=== PATIENT | male | born 2000 | race Caucasian/White ===

== ENCOUNTER 2023-09-22 12:21 | Outpatient (REF) | payer MEDICAID, SELFPAY ==
[2023-09-22 13:23] LABS: MANUAL DIFF FLAG NO
[2023-09-22 13:51] LABS: Basophils Percent Auto 0.2 % (0-2); Eosinophils Absolute Auto 0.1 X10*3/uL (0.0-0.4); Eosinophils Percent Auto 1.4 % (0-4); Hemoglobin 14.9 g/dl (14.0-18.0); Imm Gran Abs Auto 0.01 X10*3/uL (0.00-0.03); Imm Gran Pct Auto 0.2 % (0.0-0.4); Lymphocytes Absolute Auto 2.3 X10*3/uL (1.2-4.9); Lymphocytes Percent Auto 36.2 % (20-40); Mean Corpuscular HGB Conc 33.9 g/dl (31.0-36.0); Mean Corpuscular Hemoglobin 30.1 pg (27.0-33.0); Mean Corpuscular Volume 88.9 fL (80.0-98.0); Mean Platelet Volume 11.2 fL (9.4-12.4); Monocytes Absolute Auto 0.6 X10*3/uL (0.1-1.2); Monocytes Percent Auto 8.9 % (2-11); Neutrophils Absolute Auto 3.4 x10*3/uL (2.0-8.3); Neutrophils Percent Auto 53.1 % (45-73); Platelet Count 258 X10*3/uL (160-400); Red Blood Count 4.95 X10*6/uL (4.60-5.80); Red Cell Distribution Width 12.8 % (11.0-16.0); White Blood Count 6.4 X10*3/uL (4.8-10.8)
[2023-09-22 14:37] LABS: Alanine Aminotransferase 14 U/L (0-40); Albumin Level 4.7 g/dL (3.5-5.0); Alkaline Phosphatase 65 U/L (39-117); Anion Gap 12 (12-20); Aspartate Amino Transferase 19 U/L (5-37); Bilirubin Total 0.4 mg/dL (0.0-1.0); Blood Urea Nitrogen 11 mg/dL (9-16); Calcium 9.9 mg/dL (8.4-10.2); Carbon Dioxide 28 mmol/L (22-29); Chloride 105 mmol/L (96-108); Cholesterol 186 mg/dL (<200); Estimated Glomerular Filt Rate > 60; Glucose Random 96 mg/dL (60-115); HDL Cholesterol 48 mg/dL (>40); LDL Cholesterol Calculated 117 mg/dL (<100); Potassium 4.6 mmol/L (3.3-5.1); Sodium 140 mmol/L (135-145); Total Protein 7.9 g/dL (6.5-8.0); Triglycerides 105 mg/dL (<150)
[2023-09-22 14:52] LABS: ~Hepatitis C Antibody Nonreactive (Nonreactive)
[2023-09-22 14:53] LABS: CT PCR NOT DETECTED (Not Detect.); NG PCR NOT DETECTED (Not Detect.)
[2023-09-22 15:01] LABS: Reflex LDLD? No
[2023-09-24 23:03] LABS: TS Negative Control Passed; TS Panel A 0; TS Panel B 0; TS Positive Control Passed; TSpotTB Negative (Negative)
[2023-09-25 13:03] LABS: Absolute CD3 Count 1720 cells/uL (840-3060); Absolute CD4 Count 397 cells/uL (490-1740); Absolute CD8 Count 1272 cells/uL (180-1170); Absolute Lymphocytes 2305 cells/uL (850-3900); CD4 CD8 Ratio 0.31 (0.86-5.00); Percent CD3 Cells 75 % (57-85); Percent CD4 Cells 17 % (30-61); Percent CD8 Cells 55 % (12-42)
[2023-09-26 00:49] LABS: RPR Rapid Plasma Reagin NON-REACTIVE (NON-REACTIVE)
[2023-09-26 11:03] LABS: HIV RNA PCR Qn Copies 4980 copies/mL (NOT DETECTED)
== END 2023-09-22 12:22 | disposition home or self-care (01) ==
LOC: HO.HHCL 12:21
PROVIDERS: Visit Provider Internal Medicine
DX: B20 Human immunodeficiency virus [HIV] disease (principal)
CPT/HCPCS: 0353U; 36415; 80053; 80061; 85025; 86359; 86360; 86481; 86592; 86803; 87536

== ENCOUNTER 2023-10-17 17:06 | Outpatient (REF) | payer MEDICAID, SELFPAY ==
[2023-10-17 19:02] LABS: CT PCR NOT DETECTED (Not Detect.); NG PCR NOT DETECTED (Not Detect.)
[2023-10-22 05:38] LABS: C.Trachomatis RNA TMA, Rectal NOT DETECTED; N.Gonorrhoeae RNA TMA, Rectal NOT DETECTED
[2023-10-22 06:14] LABS: C. Trachomatis RNA TMA, Throat NOT DETECTED; N. gonorrhoeae RNA TMA, Throat NOT DETECTED
== END 2023-10-17 17:07 | disposition home or self-care (01) ==
LOC: HO.HHCLNP 17:06
PROVIDERS: Visit Provider Student in an Organized Health Care Education/Training Program
DX: B20 Human immunodeficiency virus [HIV] disease (principal)
CPT/HCPCS: 0353U; 87491; 87591

== ENCOUNTER 2024-04-15 09:56 | Outpatient (REF) | payer MEDICAID, SELFPAY ==
--- OUTSIDE RECORDS SUMMARY | 2024-04-15 09:59 | XMS_ITS | Data Portability ---
Author Organization [place] - [facility], [facility] Address [address] [place] [address] Assessment Encounter Date Assessment Date Assessment LastModified by Organization Details LastModified Time 09/10/2015 09/10/2015 15 yo male with nl G&D, AG given, +S/A/D/C; Vaccines - discussed Meningitis B vaccine, will not be in college currently so opting to not get this vaccine; Screening - pt goes to a clinic routinely for STD screening for both blood and urine, has been neg, however having unprotected sex sometimes so stressed need to use condoms EVERY time, Urine GC/Chlam, call pt only if abnl; Nasal congestion - for one wk and may be improving, however 2 d ago had coughed up large amt of blood mixed with mucus, did change nasal piercing to larger hoop so blood may be from that, no blood in 2 d, will use nettipot, call me next wk if not improving and I would Rx for sinusitis; Psych - ADD/ADHD/Depressi on, followed by therapist and med provider, using meds despite not being in school since help him focus at work, recent cutting with identified trigger event and therapist aware, no current SI/HI/desire to self harm; Social - currently being evicted from his home along with his Mom and sister, per pt (and Mom at different visit) GM owns home and uncle has taken over her care and $, eviction date end of September 2015, Mom looking for a job, may relocate to [facility] since older daughter lives there, asked pt to keep me updated kcamera Not available 09/10/2015 17:51:16 01/21/2016 01/21/2016 Severe Conjunctivitis vs Conj with Early Preseptal Cellulitis - Augment, Polytrim, cool compresses prn, RTO if worsening at all or if not improving in 2-3 days, f/u prn; Social - still living in same house (GM's), eviction pushed off til Dec per pt, his Mom is now countersuing his GM for the $$ it took to care of her for yrs, hoping this will get the GM/Uncle's suit dropped so they can stay in house kcamera Not available 01/21/2016 13:19:51 07/06/2016 07/06/2016 Eating disorder - anorexia, by hx multifactorial with home stress/body image issues, now wants to eat and gain a little weight but has early satiety/nausea with eating much, his current wt is not too low but he needs to stop losing and perhaps gain to goal of 165 lbs, will do screening labs, refer to Juan, pt presently very open and willing to make necessary changes, wt check next week at [facility]; Issues with anal sex/douching of anus - suspect douching problem only due to poor nutrition and will resolve once he is eating/hydrating better, if persists would refer to GI for possible scope; Thrush of mouth - does not use condoms, at higher risk with anal sex, describes his partner as currently monogamous but that he was promiscuous in past, last HIV on pt 12/2015 and nl, will do STD screens today, Rx with Clotrimazole troches, f/u next wk; Psych - anxiety/depressio n longstanding, has both therapist and med provider - neither of whom know about eating issues, pt agrees to more open with them about all of his problems, just started Sertaline but discussed I doubt this has any bearing on wt loss; ADD/ADHD - not in school but working, likes to take meds when working so he can focus, discussed that he should not take the 30 mg tablet now and only take 20 mg if needed for work, f/u one wk kcamera Not available 07/06/2016 12:23:04 07/11/2016 07/11/2016 16 yo male with nl Development, AG/VC given, +S/D/C, +A in past; BMI - wnl but sign wt loss due to eating disorder; Eating disorder - has gained 5+ lbs since last wk, stopped his Sertraline and Adderall and now has inc appetite, eating 2 meals/d, will get screening blood work tomorrow and EKG scheduled for 2 d from now, has appt with therapist in 2 d and med provider in 3 d, plan is to hold off on meds for now but if does take prn Adderall for long shift to take a lower dose, no exercise for now but once wt is stable can resume, plan to refer to Juan once have the bloodwork, f/u one mth; Oral Candidiasis - did not get troches til today so will start, f/u one mth; ADD/ADHD - off meds for several days, plan to stay off as above, keep relationship with med provider; STD screening - added Hep B and C to labs ordered last wk including RPR and HIV; Eczema - dry skin care, HC valerate bid prn Spent 50 min with pt - >35 min was spent discussing eating disorder, ADD/ADHD kcamera Not available 07/11/2016 16:46:21 07/15/2016 07/15/2016 New HIV+ diagnosis - screening done due to sexual hx/thrush and wt loss, lengthy discussion with pt that he is HIV + on first test, per ID will repeat to confirm but discussed this is unlikely to be false + given his hx, discussed that other STD screens were nl, talked with Elsie CESPEDES this AM and has appt in 3 d 07/18/[address] Ruiz, pt given appt info, offered to talk to his Mom and his boyfriend for or with him - he declined, given his psych hx including suicide attempts he contracted for safety, declined having me tell his therapist - states he will tell her in 2 wks at next appt, f/u here one month; Hep B - neg surface Ab, did not seroconvert, plan to repeat series in future but will wait for his immune status to be stable; Eating disorder/wt loss - now complicated by concommitant HIV diagnosis, pt is now eating better and feels he likely does not need Juan at this time, wt check here in one month kcamera Not available 07/15/2016 17:55:25 Plan of Treatment Reminders Order Date Submit Date Provider Last Modified By Organization Details Last Modified Time Details Appointments None recorded . Lab CT + NG DNA, PCR, urine 2015 016 DBA_[email or web address] [id number] [facility], [address] [place], [address], 6 04:08:45 CT + NG DNA, PCR, unspecif ied specimen 2016 017 [facility], [address] [place], [address], 7 10:28:18 HIV (1+2) Ab screen, serum 2016 017 [facility], [address] [place], [address], 7 09:05:52 HIV (1+2) Ab, western blot, serum 2016 017 [facility], [address] [place], [address], 7 09:05:52 RPR (rapid plasma reagin), serum 2016 017 [facility], [address] [place], [address], 7 16:45:43 ESR (erythro cyte sediment ation rate), blood 2016 017 [facility], [address] [place], [address], 7 14:39:16 CBC w/ auto diff 2016 017 [facility], [address] [place], [address], 7 16:00:07 TSH + free T4, serum 2016 017 [facility], [address] [place], [address], 7 10:27:28 carotene , serum 2016 017 CONNIE [facility], [address] [place], [address], 7 08:18:15 tissue transglu taminase Ab, serum 2016 017 mswienton [facility], [address] [place], [address], 7 10:28:01 iga, quantita tive, serum 2016 017 CONNIE [facility], [address] [place], [address], 7 14:59:18 magnesiu m, free, serum 2016 017 CONNIE [facility], [address] [place], [address], 7 16:01:41 urinalys is, complete 2016 017 CONNIE [facility], [address] [place], [address], 7 02:08:18 CMP, serum or plasma 2016 017 CONNIE [facility], [address] [place], [address], 7 16:01:39 amylase + lipase, serum 2016 017 [facility], [address] [place], [address], 7 09:05:52 prealbum in, serum 2016 017 CONNIE [facility], [address] [place], [address], 7 16:01:42 urinalys is, dipstick 2016 017 [facility], [address] [place] [address], [place], [address], 7 12:13:34 hepatiti s C virus Ab, serum 2016 017 [facility], [address] [place], [address], 7 16:53:02 HBsAg (hepatit is B surface Ag), serum 2016 017 [facility], [address] [place], [address], 7 16:45:47 hepatiti s B surface Ab, qualitat luzmaria, serum 2016 017 [facility], [address] [place], [address], 7 17:05:40 HIV (1+2) Ab screen, serum 2016 017 [facility], [address] [place], [address], 7 13:23:00 HIV (1+2) Ab, western blot, serum 2016 017 [facility], [address] [place], [address], 7 13:23:12 Referral pediatri c infectio us disease referral 2016 017 kcamera Not available 7 08:27:02 Procedures None recorded . Surgeries None recorded . Imaging electroc ardiogra m 2016 017 [facility] (Outt Non-Invasive Cardiology Scheduling), [address] [place], [address], 7 09:24:05 Medication Orders Polytrim 10,000 unit-1 mg/mL eye drops 2015 016 zule[id number], [address] [place], [place], [id number], 7 11:01:05 Augmenti n 875 mg-125 mg tablet 2015 016 zuleika [facility]67703, [address] [place] [address], [place], [id number], 7 11:00:47 clotrima zole 10 mg sharif 2016 017 INTERFACE [facility][id number], [address] [place], [place], [id number], 7 12:15:44 hydrocor tisone valerate 0.2 % topical cream 2016 017 INTERFACE [id number], [address] [place] [address], [place], [id number], 7 15:39:48 Patient TargetsNo targets recorded. Patient Instructions Encounter Date Encounter Id Patient Instructions Last Modified By Organization Details Last Modified Time 09/10/2015 [id number] patient health questionnaire modified for adolescents* DBA_PATCH_20 [id number] Not available 04/09/2016 04:08:45 5210 program - 1 hour of exercise DBA_PATCH_20 [id number] Not available 04/09/2016 04:08:43 immunization: wh at you need to know DBA_PATCH_20 [id number] Not available 04/09/2016 04:08:43 Well Visit, 12 Years to Young Teen: Care Instructions DBA_PATCH_20 [id number] Not available 04/09/2016 04:08:43 07/11/2016 [id number] program - 5 fruits & veggies CONNIE Not available 07/12/2016 02:05:30 5210 program - 1 hour of exercise CONNIE Not available 07/12/2016 02:05:30 patient health questionnaire depression assessment* kcamera Not available 07/11/2016 15:39:35 immunization: wh at you need to know CONNIE Not available 07/12/2016 02:05:31 Reason for Referral Pediatric Infectious Disease Referral for Human immunodeficiency virus infection newly HIV+ Referring Physician: Carito Serna, Pediatric Medicine, Encounter Date: 07/15/2016 Results Created Date Observation Date Name Description Value Unit Range Abnormal Flag Note LastModifiedBy Organization Detail LastModifiedTime 07/11/2016 patie nt healt [facility] italo pineda fanta christina kay * PHQ-9 positi ve Not Available [facility] [address] [place] [address], [phone], 07/11/2016 15:09:21 07/06/2016 urina lysis , dipst ick Leukocytes Negati ve Not Available [facility] [address] [place] [address], [phone], 07/06/2016 11:57:23 07/06/2016 urina lysis , dipst ick Nitrite negati ve Not Available [facility] [address] [place] [address], [phone], 07/06/2016 11:57:23 07/06/2016 urina lysis , dipst ick Protein Trace Not Available [facility] [address] [place] [address], [phone], 07/06/2016 11:57:23 07/06/2016 urina lysis , dipst ick pH 7.5 Not Available [facility] [address] [place] [address], [phone], 07/06/2016 11:57:23 07/06/2016 urina lysis , dipst ick Blood Negati ve Not Available [facility] [address] [place] [address], [phone], 07/06/2016 11:57:23 07/06/2016 urina lysis , dipst ick Ketone Negati ve Not Available [facility] [address] [place] [address], [phone], 07/06/2016 11:57:23 07/06/2016 urina lysis , dipst ick Glucose Negati ve Not Available [facility] [address] [place] [address], [phone], 07/06/2016 11:57:23 09/10/2015 patie nt healt h quest ionna fanta modif ied for adole scent s* PHQ-9 positi ve Not Available [facility] [address] [facility], [place], [address], 09/10/2015 13:15:36 09/10/19 16 09/11/2015 CT + NG DNA, PCR, urine urine chlamydia amp probe NEGAT LUZMARIA No Chlam ydia Trach omati s RNA detec lavonne in this patie nt's sampl e (REFE RENCE RANGE /NORM AL VALUE : NOT DETEC LAVONNE) Not Available [facility] [address], [place], [address], 09/11/2015 14:27:11 09/10/19 16 09/11/2015 CT + NG DNA, PCR, urine urine GC amp probe NEGAT LUZMARIA No Neiss eria Gonor rhoea e RNA detec lavonne in this patie nt's sampl e (REFE RENCE RANGE /NORM AL VALUE : NOT DETEC LAVONNE) NOTE: This test uses trans cript ion-m ediat ed ampli ficat ion metho d to detec t rRNA from C.Tra choma tis and N.Wilman orrho eae. A negat luzmaria resul t does not precl ude infec tion. In the case of a negat luzmaria urine resul t, testi ng of an endoc ervic al(fe male) or ureth ral(m geovany) speci men is recom best d if there is high clini ingrid suspi cion of infec tion. The perfo rmanc e angelito cteri stics of this test have not been evalu ated in child macario. The Aptim a Combo 2 assay is not inten ded for the evalu ation of suspe cted sexua l abuse or for other medic o-leg al indic ation s. The order ing provi mir shoul d asses s if the patie nt had conse nsual sex witho ut risk of sexua l abuse . [facility] if neede d. Conta ct phone numbe r [phone]. Thera peuti c failu re or succe ss canno t be deter mined with the Aptim a Combo 2 assay since nucle ic acid may persi st follo wing appro priat e antim icrob ial thera py. The Cente rs for Disea se Contr ol and Preve ntion ([facility]) recom mends confi rmato ry retes ting using cultu re or a diffe rent nucle ic acid ampli ficat ion test when posit luzmaria resul ts occur , if indic ated. Testi ng perfo rmed or repor lavonne by [facility] ate Refer ence Labor atori es, a Servi ce of [facility] ate Medic al Cente r, [address] [place] [address] CLIA [id number] Kim bruce MD, PhD, Medic al Direc tor Not Available [facility] [address] [place], [address], 09/11/2015 14:27:11 07/07/19 17 07/07/2016 urina lysis , compl ete appear/color DARK YELLO W CLEAR Not Available [facility] [address] [place], [address], 07/07/2016 02:08:17 07/07/19 17 07/07/2016 urina lysis , compl ete sp. gravity 1.026 (1.002 -1.030 ) Not Available [facility] [address] [place], [address], 07/07/2016 02:08:17 07/07/19 17 07/07/2016 urina lysis , compl ete urine pH 7.0 (4.0-8 .0) Not Available [facility] [address] [place], [address], 07/07/2016 02:08:17 07/07/19 17 07/07/2016 urina lysis , compl ete urine albumin 2+ (neg) abnormal Not Available [facility] [address] [place], [address], 07/07/2016 02:08:17 07/07/19 17 07/07/2016 urina lysis , compl ete urine glucose NEGATI VE (neg) Not Available [facility] [address] [place], [address], 07/07/2016 02:08:17 07/07/19 17 07/07/2016 urina lysis , compl ete urine ketones TRACE (neg) abnormal Not Available [facility] [address] [place], [address], 07/07/2016 02:08:17 07/07/19 17 07/07/2016 urina lysis , compl ete urine bilirubin NEGATI VE (neg) Not Available [facility] [address] [place], [address], 07/07/2016 02:08:17 07/07/19 17 07/07/2016 urina lysis , compl ete urine hemoglobn NEGATI VE (neg) Not Available [facility] [address] [place], [address], 07/07/2016 02:08:17 07/07/19 17 07/07/2016 urina lysis , compl ete urine nitrite NEGATI VE (neg) Not Available [facility] [address] [place], [address], 07/07/2016 02:08:17 07/07/19 17 07/07/2016 urina lysis , compl ete urine leukocyte NEGATI VE (neg) Not Available [facility] [address] [place], [address], 07/07/2016 02:08:17 07/07/19 17 07/07/2016 urina lysis , compl ete urobilinogen 4 mg/dL (norm) abnormal Not Available [facility] [address] [place], [address], 07/07/2016 02:08:17 07/07/19 17 07/07/2016 urina lysis , compl ete urine WBC's <1 /hpf (0-5) Not Available [facility] [address] [place], [address], 07/07/2016 02:08:17 07/07/19 17 07/07/2016 urina lysis , compl ete urine RBC's NONE SEEN /hpf (<3) Not Available [facility] [address] [place], [address], 07/07/2016 02:08:17 07/07/19 17 07/07/2016 urina lysis , compl ete mucus HEAVY /lpf Not Available [facility] [address] [place], [address], 07/07/2016 02:08:17 07/07/19 17 07/07/2016 urina lysis , compl ete transitional epith <1 /hpf Not Available [facility] [address], [address], 07/07/2016 02:08:17 07/07/19 17 07/07/2016 urina lysis , compl ete hyaline cast 4 lpf (0-2) high Not Available [facility] [address], [address], 07/07/2016 02:08:17 07/07/19 17 07/08/2016 CT + NG DNA, PCR, urine urine chlamydia amp probe NEGAT LUZMARIA No Chlam ydia Trach omati s RNA detec lavonne in this patie nt's sampl e (REFE RENCE RANGE /NORM AL VALUE : NOT DETEC LAVONNE) Not Available [facility] [address] [place], [address], 07/08/2016 07:05:47 07/07/19 17 07/08/2016 CT + NG DNA, PCR, urine urine GC amp probe NEGAT LUZMARIA No Neiss eria Gonor rhoea e RNA detec lavonne in this patie nt's sampl e (REFE RENCE RANGE /NORM AL VALUE : NOT DETEC LAVONNE) NOTE: This test uses trans cript ion-m ediat ed ampli ficat ion metho d to detec t rRNA from C.Tra choma tis and N.Wilman orrho eae. A negat luzmaria resul t does not precl ude infec tion. In the case of a negat luzmaria urine resul t, testi ng of an endoc ervic al(fe male) or ureth ral(m geovany) speci men is recom best d if there is high clini ingrid suspi cion of infec tion. The perfo rmanc e angelito cteri stics of this test have not been evalu ated in child macario. The Aptim a Combo 2 assay is not inten ded for the evalu ation of suspe cted sexua l abuse or for other medic o-leg al indic ation s. The order ing provi mir shoul d asses s if the patie nt had conse nsual sex witho ut risk of sexua l abuse . [facility] if neede d. Conta ct phone numbe r . Thera peuti c failu re or succe ss canno t be deter mined with the Aptim a Combo 2 assay since nucle ic acid may persi st follo wing appro priat e antim icrob ial thera py. The Cente rs for Disea se Contr ol and Preve ntion ([facility]) recom mends confi rmato ry retes ting using cultu re or a diffe rent nucle ic acid ampli ficat ion test when posit luzmaria resul ts occur , if indic ated. Not Available [facility] [address], [place], [address], 07/08/2016 07:05:47 07/14/19 17 07/13/2016 ESR (eryt hrocy te sedim entat ion rate) , blood sedimentatio n rate 8 mm/HR (0-15) In rare patie nts with multi ple myelo ma and other cance rs,Er ythro cyte Sedim entat ion Rate( ESR) by our curre nt metho d(iSE D)can be dominik l. If clini nj relev ant,p lease use C-cordelia ctive prote in as an equiv alent measu re of acute phase react ion in these patie nts. Not Available [facility] [address] [place], [address], 07/13/2016 14:39:16 07/14/19 17 07/13/2016 tissu e trans gluta tiffany e Ab, serum free T4 1.05 NG/dL (0.70- 1.80) NOTE: ADULT REFER ENCE RANGE MAY NOT APPLY TO PEDIA TRIC PATIE NTS. INTER PRET RESUL TS WITH CAUTI ON. Not Available [facility] [address], [address], 07/13/2016 15:52:47 07/14/19 17 07/13/2016 TSH + free T4, serum TSH 0.80 mIU/m L (0.40- 4.00) NOTE: ADULT REFER ENCE RANGE MAY NOT APPLY TO PEDIA TRIC PATIE NTS. INTER PRET RESUL TS WITH CAUTI ON. Not Available [facility] [address] [place], [address], 07/13/2016 15:52:48 07/14/19 17 07/13/2016 CBC w/ auto diff WBC 4.4 K/mm3 (4.0-1 1.0) Not Available [facility] [address] [place], [address], 07/13/2016 16:00:07 07/14/19 17 07/13/2016 CBC w/ auto diff RBC 5.39 M/mm3 (4.70- 6.10) Not Available [facility] [address] [place], [address], 07/13/2016 16:00:07 07/14/19 17 07/13/2016 CBC w/ auto diff HGB 15.4 gm/dL (14.0- 18.0) Not Available [facility] [address] [place], [address], 07/13/2016 16:00:07 07/14/19 17 07/13/2016 CBC w/ auto diff HCT 47.5 % (42.0- 52.0) Not Available [facility] [address] [place], [address], 07/13/2016 16:00:07 07/14/19 17 07/13/2016 CBC w/ auto diff MCV 88.1 fL (80.0- 94.0) Not Available [facility] [address], [address], 07/13/2016 16:00:07 07/14/19 17 07/13/2016 CBC w/ auto diff MCH 28.6 pg (27.0- 34.0) Not Available [facility] [address] [place], [address], 07/13/2016 16:00:07 07/14/19 17 07/13/2016 CBC w/ auto diff MCHC 32.4 g/dL (33.0- 37.0) low Not Available [facility] [address] [place], [address], 07/13/2016 16:00:07 07/14/19 17 07/13/2016 CBC w/ auto diff plt 245 K/mm3 (150-4 60) Not Available [facility] [address] [place], [address], 07/13/2016 16:00:07 07/14/19 17 07/13/2016 CBC w/ auto diff RDW-SD 40.7 fL (<47.0 ) Not Available [facility] [address] [place], [address], 07/13/2016 16:00:07 07/14/19 17 07/13/2016 CBC w/ auto diff MPV 11.6 fL (9.4-1 2.4) Not Available [facility] [address] [place], [address], 07/13/2016 16:00:07 07/14/19 17 07/13/2016 CBC w/ auto diff automated NRBC 0.0 #/100 _WBC' s Not Available [facility] [address] [place], [address], 07/13/2016 16:00:07 07/14/19 17 07/13/2016 CBC w/ auto diff abs. NRBC 0.0 K/mm3 Not Available [facility] [address] [place], [address], 07/13/2016 16:00:07 07/14/19 17 07/13/2016 CBC w/ auto diff neut # 1.6 K/mm3 (1.3-7 .0) Not Available [facility] [address] [place], [address], 07/13/2016 16:00:07 07/14/19 17 07/13/2016 CBC w/ auto diff lymph # 1.9 K/mm3 (0.8-3 .1) Not Available [facility] [address], [address], 07/13/2016 16:00:07 07/14/19 17 07/13/2016 CBC w/ auto diff mono# 0.7 K/mm3 (0.4-1 .3) Not Available [facility] [address] [place], [address], 07/13/2016 16:00:07 07/14/19 17 07/13/2016 CBC w/ auto diff eo # 0.2 K/mm3 (0.0-0 .4) Not Available [facility] [address], [address], 07/13/2016 16:00:07 07/14/19 17 07/13/2016 CBC w/ auto diff neut 35.5 % (44-76 ) low Not Available [facility] [address] [place], [address], 07/13/2016 16:00:07 07/14/19 17 07/13/2016 CBC w/ auto diff lymph 38.8 % (15-43 ) Not Available [facility] [address], [address], 07/13/2016 16:00:07 07/14/19 17 07/13/2016 CBC w/ auto diff atypical lymphs 5.0 % Not Available [facility] [address], [address], 07/13/2016 16:00:07 07/14/19 17 07/13/2016 CBC w/ auto diff monocyte 15.7 % (4.5-1 0.5) high Not Available [facility] [address] [place], [address], 07/13/2016 16:00:07 07/14/19 17 07/13/2016 CBC w/ auto diff eo 5.0 % (0-6) Not Available [facility] [address] [place], [address], 07/13/2016 16:00:07 07/14/19 17 07/13/2016 CBC w/ auto diff baso 0.0 % (0-2) Not Available [facility] [address] [place], [address], 07/13/2016 16:00:07 07/14/19 17 07/13/2016 CBC w/ auto diff plt estimate ADEQUA TE Not Available [facility] [address] [place], [address], 07/13/2016 16:00:07 07/14/19 17 07/13/2016 CBC w/ auto diff platelet comment FEW LARGE PLATE LETS Not Available [facility] [address] [place], [address], 07/13/2016 16:00:07 07/14/19 17 07/13/2016 amyla se, serum or plasm a amylase 48 U/L (28-10 0) Not Available [facility] [address] [place], [address], 07/13/2016 16:01:38 07/14/19 17 07/13/2016 CMP, serum or plasm a glucose 85 mg/dL (70-99 ) Not Available [facility] [address] [place], [address], 07/13/2016 16:01:39 07/14/19 17 07/13/2016 CMP, serum or plasm a BUN 15 mg/dL (6-20) Not Available [facility] [address] [place], [address], 07/13/2016 16:01:39 07/14/19 17 07/13/2016 CMP, serum or plasm a creatinine 0.8 mg/dL (0.7-1 .2) Not Available [facility] [address] [place], [address], 07/13/2016 16:01:39 07/14/19 17 07/13/2016 CMP, serum or plasm a sodium 141 mmol/ L (133-1 45) Not Available [facility] [address] [place], [address], 07/13/2016 16:01:39 07/14/19 17 07/13/2016 CMP, serum or plasm a potassium 4.5 mmol/ L (3.6-5 .2) Not Available [facility] [address] [place], [address], 07/13/2016 16:01:39 07/14/19 17 07/13/2016 CMP, serum or plasm a chloride 104 mmol/ L (98-10 7) Not Available [facility] [address] [place], [address], 07/13/2016 16:01:39 07/14/19 17 07/13/2016 CMP, serum or plasm a bicarbonate 25 mmol/ L (22-29 ) Not Available [facility] [address] [place], [address], 07/13/2016 16:01:39 07/14/19 17 07/13/2016 CMP, serum or plasm a anion gap 12 (4-17) Not Available [facility] [address] [place], [address], 07/13/2016 16:01:39 07/14/19 17 07/13/2016 CMP, serum or plasm a albumin 4.6 gm/dL (3.4-4 .8) Not Available [facility] [address] [place], [address], 07/13/2016 16:01:39 07/14/19 17 07/13/2016 CMP, serum or plasm a calcium 9.3 mg/dL (8.6-1 0.5) NOTE: ADULT REFER ENCE RANGE MAY NOT APPLY TO PEDIA TRIC PATIE NTS. INTER PRET RESUL TS WITH CAUTI ON. Not Available [facility] [address] [place], [address], 07/13/2016 16:01:39 07/14/19 17 07/13/2016 CMP, serum or plasm a bilirubin,to jammie 0.3 mg/dL (0-1.2 ) Not Available [facility] [address] [place], [address], 07/13/2016 16:01:39 07/14/19 17 07/13/2016 CMP, serum or plasm a total protein 7.3 gm/dL (6.2-8 .2) Not Available [facility] [address] [place], [address], 07/13/2016 16:01:39 07/14/19 17 07/13/2016 CMP, serum or plasm a Ag ratio 1.7 Not Available [facility] [address] [place], [address], 07/13/2016 16:01:39 07/14/19 17 07/13/2016 CMP, serum or plasm a AST 15 U/L (0-38) Not Available [facility] [address] [place], [address], 07/13/2016 16:01:39 07/14/19 17 07/13/2016 CMP, serum or plasm a alk phos 59 U/L (40-12 9) Not Available [facility] [address] [place], [address], 07/13/2016 16:01:39 07/14/19 17 07/13/2016 CMP, serum or plasm a ALT 10 U/L (0-41) Not Available [facility] [address] [place], [address], 07/13/2016 16:01:39 07/14/19 17 07/13/2016 CMP, serum or plasm a est GFR non 130 mL/mi n/1.7 3_M2 The CKD-E PI creat inine equat ion has not been valid ated in child macario (<18 years ), pregn ant women , in some racia l or ethni c subgr oups other than Cauca sians and Afric an Ameri cans. Not Available [facility] [address] [place], [address], 07/13/2016 16:01:39 07/14/19 17 07/13/2016 CMP, serum or plasm a est GFR 151 mL/mi n/1.7 3_M2 The CKD-E PI creat inine equat ion has not been valid ated in child macario (<18 years ), pregn ant women , in some racia l or ethni c subgr oups other than Cauca sians and Afric an Ameri cans. Not Available [facility] [address] [place], [address], 07/13/2016 16:01:39 07/14/19 17 07/13/2016 lipas e, serum or plasm a lipase 39 U/L (13-60 ) Not Available [facility] [address] [place], [address], 07/13/2016 16:01:40 07/14/19 17 07/13/2016 magne sium, serum or plasm a magnesium 1.8 mEq/L (1.3-1 .9) Not Available [facility] [address] [place], [address], 07/13/2016 16:01:41 07/14/19 17 07/13/2016 preal bumin , serum prealbumin 29.5 mg/dL (20-40 ) Not Available [facility] [address] [place], [address], 07/13/2016 16:01:42 07/14/19 17 07/13/2016 RPR (rapi d plasm a reagi n), titer , serum syphilis screen by deng NONREA CTIVE Not Available [facility] [address] [place], [address], 07/13/2016 16:45:43 07/14/19 17 07/13/2016 RPR (rapi d plasm a reagi n), titer , serum RPR titer result NOT INDICA LAVONNE Not Available [facility] [address] [place], [address], 07/13/2016 16:45:43 07/14/19 17 07/13/2016 RPR (rapi d plasm a reagi n), titer , serum tppa result NOT INDICA LAVONNE Not Available [facility] [address] [place], [address], 07/13/2016 16:45:43 07/14/19 17 07/13/2016 RPR (rapi d plasm a reagi n), titer , serum syphilis interpretati on Indic ative of the absen ce of infec tion with Trepo nemal palli dum. Test may be negat luzmaria in cases of incub ating or early prima ry syphi lis. Consi mir repea t testi ng in sever al weeks if clini ingrid suspi cion is high. Not Available [facility] [address] [place], [address], 07/13/2016 16:45:43 07/14/19 17 07/13/2016 HBsAg (hepa titis B surfa ce Ag), serum hep. B surf. Ag NEGAT LUZMARIA REFER ENCE RANGE : NEGAT LUZMARIA Not Available [facility] [address] [place], [address], 07/13/2016 16:45:47 07/14/19 17 07/13/2016 hepat itis B surfa ce Ab, quali tativ e, serum anti-hbs NEGAT LUZMARIA INDIC ATES LACK OF PRIOR EXPOS URE. Not Available [facility] [address] [place], [address], 07/13/2016 17:05:40 07/14/19 17 07/14/2016 tissu e trans gluta tiffany e iga Ab, serum ttg result 0.59 U/mL (<15.0 1) Refer ence Range : less than or equal to 15 U/mL (nega tive) Effec tive Janwindy ry 2016 the refer ence range for this assay has mon ed from less than 4 U/mL to less than or equal to 15 U/mL. Not Available [facility] [address] [place], [address], 07/14/2016 10:57:06 07/14/19 17 07/14/2016 HIV 1+2 AB + HIV 1 p24 Ag, quali tativ e immun oassa y, serum result 4TH gen HIV Ab-Ag REPEA TEDLY REACT LUZMARIA BY SCREE SHERWIN DENG. PLEAS E SEE CONFI RMATO RY TEST RESUL TS. REFER ENCE RANGE : NEGAT LUZMARIA ADDIT IONAL NOTE: WRITT EN PATIE NT AUTHO RIZAT ION IS REQUI RED FOR EACH SEPAR ATE RELEA SE OF THIS TEST RESUL T. Not Available [facility] [address] [place], [address], 07/14/2016 13:26:09 07/14/19 17 07/14/2016 HIV 1-2 Ab diffe renti ation result for HIV 1 Ab diff Posit luzmaria. Prese nce of antib crispin to HIV 1 CONFI RMED in this speci men. Resul t repor lavonne to [place] DPH. Not Available [facility] [address] [place], [address], 07/14/2016 14:18:11 07/14/19 17 07/14/2016 HIV 1-2 Ab diffe renti ation result for HIV 2 Ab diff Negati ve. Presen ce of antibo dy to HIV 2 NOT confir med in this specim en. Not Available [facility] [address] [place] [place], [address], 07/14/2016 14:18:11 07/14/19 17 07/14/2016 hepat itis C virus Ab, serum anti-hepatit is C NEGAT LUZMARIA REFER ENCE RANGE : NEGAT LUZMARIA Not Available [facility] [address] [place], [address], 07/14/2016 16:53:02 07/14/19 17 07/15/2016 iga, quant itati ve, serum IgA subclass 1 251 Refer ence range : 50 to 314 Unit: mg/dL Not Available [facility] [address] [place], [address], 07/15/2016 14:59:18 07/14/19 17 07/15/2016 iga, quant itati ve, serum IgA subclass 2 43.6 Refer ence range : 9.7 to 156.0 Unit: mg/dL Not Available [facility] [address] [place], [address], 07/15/2016 14:59:18 07/14/19 17 07/15/2016 iga, quant itati ve, serum total IgA 296 Refer ence range : 61 to 356 Unit: mg/dL Test Perfo rmed by: [facility], [address], [place] [address] Labor atory Direc tor: Jerry parker III, M.D. Not Available [facility] [address] [place], [address], 07/15/2016 14:59:18 07/14/19 17 07/20/2016 carot annie, serum carotene 11 Refer ence range : 3 to 91 Unit: ug/dL (NOTE ) [facility]: [facility] [address] [facility] [place] [id number] Not Available [facility] [address] [place], [address], 07/20/2016 08:18:15 07/19/19 17 07/19/2016 HIV (1+2) Ab, westfaizan rn blot, serum result 4TH gen HIV Ab-Ag REPEA TEDLY REACT LUZMARIA BY SCREE SHERWIN DENG. PLEAS E SEE CONFI RMATO RY TEST RESUL TS. REFER ENCE RANGE : NEGAT LUZMARIA ADDIT IONAL NOTE: WRITT EN PATIE NT AUTHO RIZAT ION IS REQUI RED FOR EACH SEPAR ATE RELEA SE OF THIS TEST RESUL T. Not Available [facility] [address] [place], [address], 07/19/2016 12:19:00 07/19/19 17 07/19/2016 HIV (1+2) Ab scree n, serum result for HIV 1 Ab diff Posit luzmaria. Prese nce of antib crispin to HIV 1 CONFI RMED in this speci men. Resul t repor lavonne to [place] DPH. Not Available [facility] [address] [place], [address], 07/19/2016 13:21:19 07/19/19 17 07/19/2016 HIV (1+2) Ab scree n, serum result for HIV 2 Ab diff Negati ve. Presen ce of antibo dy to HIV 2 NOT confir med in this specim en. Not Available [facility] [address] [place], [address], 07/19/2016 13:21:19 08/04/19 17 07/13/2016 jony de anda am No observ ation record ed. [facility] (Outt Non-Invasive Cardiology Scheduling) [address] [place], [address], 08/10/2016 10:16:27 Result Notes None recorded. Problems Name Problem SNOMED Code Status Onset Date Resolution Date Notes Provider Name and Address Organization Details Recorded Time Joint pain in ankle and foot Completed 01/02/2013 [facility] 3 08:46:57 Cellulit is 225211723 Completed 200801/02/2013 [facility] 3 08:46:57 Wrist joint pain 484861830 Completed 01/02/2013 [facility] 3 08:46:57 Viral disease 60864761 Completed 200801/02/2013 Klaudia patterson [facility] 3 08:46:57 Attentio n deficit hyperact ivity disorder , combined type 91455314 Active Carito Serna MD [address] [place] [address], [address], [facility] 5 13:02:27 Acute pharyngi tis 912613332 Completed 200801/02/2013 Klaudia patterson [facility] 3 08:46:57 Streptoc occal sore throat 68640701 Completed 01/02/2013 Klaudia patterson [facility] 3 08:46:57 Pain in limb 11900311 Completed 01/02/2013 Klaudia patterson [facility] 3 08:46:57 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 83912164 Completed 200801/02/2013 Klaudia patterson [facility] 3 08:46:57 Sprain of ankle 59579026 Completed 01/02/2013 Klaudiavee patterson [facility] 3 08:46:57 Disorder of pulmonar y circulat ion 39591155 Completed 200807/24/2013 Carito Serna MD [address] [place] [address], [address], [facility] 4 16:14:28 Ankle joint pain 959731378 Active Carito Serna MD [address] [place] [address], [address], [facility] 4 15:15:00 Injury of ankle 682160056 Active has extra bone in foot- os-trigon um- to have surgery in [place]- Nikki Wu [facility] 3 14:25:18 Acute pharyngi tis 048800010 Completed 01/29/2013 Klaudia patterson [facility] 3 14:25:18 Otitis externa 9482542 Completed 02/11/2015 Carito Serna MD [address] [place], [place] [address], [address], [facility] 5 07:55:14 Dysuria 06940688 Active Carito Serna MD [address] [place], [place] [address], [address], [facility] 3 17:20:16 Urinary tract infectio us disease 27945937 Active Carito Serna MD [address] [place] [address], [place], [address], [facility] 3 09:40:56 Dizzines s 170455169 Completed 07/24/2013 Carito Serna MD [address] [place] [address], [place], [address], [facility] 4 16:14:28 Muscle strain 89638277 Completed 07/24/2013 Carito Serna MD [address] [place] [address] Katem[place], [address], [facility] 4 16:14:28 Chest pain 94146969 Completed 07/24/2013 Carito Serna MD [address] [place], [place] [address]K[place], 3, [facility] 4 16:14:28 Hip pain 19659973 Active Carito Serna MD [address] [place] [address] Katemadi [place], 3, [facility] 4 21:30:01 Anxiety 36984632 Active Carito Serna MD [address] [place], [place] [address], [address], [facility] 4 18:09:45 Depressi ve disorder 01523559 Active Carito Serna MD [address] [place] [address] [place], [address], [facility] 5 21:43:09 Acute pharyngi tis 727330503 Completed 02/11/2015 Carito Serna MD [address] [place] [address] [place], [address], [facility] 5 07:55:14 Upper respirat ory infectio n 72407244 Completed 02/11/2015 Carito Serna MD [address] [place] [address], [place], [address], [facility] 5 07:55:14 Viral syndrome 383182064 Completed 02/11/2015 Carito Serna MD [address] [place] [address], [place], [address], [facility] 5 07:55:14 Increase d body mass index 17284753 Active Carito Serna MD [address] [place] [address], [place], [address], [facility] 5 21:43:09 Sinusiti s 85389625 Active Carito Serna MD [address] [place] [address], [place], [address], [facility] 5 10:00:11 Cellulit is of pinna 378573027 Active Carito Serna MD [address] [place] [address], [place], [address], [facility] 5 21:43:09 Secondar y erectile dysfunct ion 287936128 Active Carito Serna MD [address] [place] [address], [place]ruett [place], 3, [facility] 5 21:43:09 Eating disorder 49114757 Active 2016 Carito Serna MD [address] [place] [address], [place]ira pruett [place], 3, [facility] 7 12:15:44 Candidia sis of mouth 90272275 Active 2016 Carito Serna MD [address] [place] [address], [place] pruett [place], 3, [facility] 7 12:20:05 Eczema 78601957 Active 2016 Carito Serna MD [address] [place], [place] [address], 3, [facility] 7 16:44:28 Human immunode ficiency virus infectio n 40934778 Active 2016 diagnosed 06/2016 Carito Serna MD [address] [facility], [place], [address] , [facility] 7 14:48:24 Problem Notes None recorded. Procedures Surgical History Date Name Laterality Status Provider Name and Address Organization Details Recorded Time 3 Orthopaedic completed Tosin Lutz R.N. [facility] 12/25/2013 07:40:12 Imaging Results Imaging Date Name Status LastModified by Organization Details LastModified Time 07/13/2016 electrocardiogram completed [facility] (Outt Non-Invasive Cardiology Scheduling) [address] [place], [address], 08/10/2016 10:16:27 Procedure Notes None recorded. Medical Equipment None Reported. Allergies No known drug allergies Medications Name Sig Start Date Stop Date Status Note LastModified by Organization Details LastModified Time amoxicillin 875 mg tabs active Not Available Not Available Not Available amphetamine /dextroamph etamine 20 mg cp24 active Not Available Not Available Not Available amphetamine /dextroamph etamine 30 mg cp24 active Not Available Not Available Not Available clotrimazol e 10 mg sharif Take 1 tablet 5 times a day by oral route for 14 days. active Not Available Not Available No t Available neomycin-po lymyxin-hyd rocort 3.5 mg/mL-10,00 0 unit/mL-1 % ear solution active Not Available Not Available Not Available Concerta 18 mg tablet,exte nded release Take 1 tablet every day by oral route in the morning. 2010 active Not Available Not Available Not Avai lable Lidocaine Viscous 2 % mucosal solution active Not Available Not Available Not Available hydrocortis one valerate 0.2 % topical cream APPLY A THIN LAYER TO THE AFFECTED AREA(S) BY TOPICAL ROUTE 2 TIMES PER DAY active Not Available Not Available No t Available methylpheni date 10 mg tablet Take 1 tablet every day by oral route for 30 days. 04/24 completed Not Available Not Available Not Available hydrocodone 5 mg-acetamin ophen 325 mg tablet 01/20 completed Not Available Not Available Not Available ondansetron HCl 4 mg tablet active Not Available Not Available Not Available dextroamphe tamine-amph etamine 10 mg tablet 01/20 completed Not Available Not Available Not Available sertraline 100 mg tablet active Not Available Not Available Not Available penicillin V potassium 500 mg tablet Take 1 tablet twice a day by oral route for 10 days. 01/20 completed Not Available Not Available Not Available amoxicillin 500 mg tablet 01/20 completed Not Available Not Available Not Available amoxicillin 875 mg tablet TK 1 T PO EVERY 12 HOURS FOR 10 DAYS active Not Available Not Available No t Available dextroamphe tamine-amph etamine ER 20 mg 24hr capsule,ext end release TAKE ONE CAPSULE BY MOUTH EVERY MORNING active Not Available Not Available No t Available cephalexin 500 mg capsule Take 1 capsule 3 times a day by oral route for 10 days. 09/07 completed Not Available Not Available Not Available nystatin 100,000 unit/gram topical cream Apply by topical route tid til clear active Not Available Not Available No t Available dexamethaso ne 4 mg tablet 01/20 completed Not Available Not Available Not Available dextroamphe tamine-amph etamine 20 mg tablet TK 1 T P QD active Not Available Not Available No t Available polymyxin B sulfate 10,000 unit-trimet hoprim 1 mg/mL eye drops INT 2 GTS IN OU TID FOR 5 DAYS 07/06 completed Not Available Not Available Not Available dextroamphe tamine-amph etamine ER 10 mg 24hr capsule,ext end release active Not Available Not Available Not Available zolpidem 10 mg tablet active Not Available Not Available No t Available dextroamphe tamine-amph etamine ER 30 mg 24hr capsule,ext end release TK 1 C PO ONCE D IN THE MORNING active Not Available Not Available No t Available Zoloft 25 mg tablet Take 1 tablet every day by oral route for 30 days. 01/26 completed Not Available Not Available Not Available sertraline 50 mg tablet TK 1 T PO D active Not Available Not Available No t Available methylpheni date ER 36 mg tablet,exte nded release 24 hr Take 1 tablet every day by oral route in the morning. 2013 active Not Available Not Available Not Avai lable diazepam 5 mg tablet active Not Available Not Available No t Available amoxicillin 875 mg-potassiu m clavulanate 125 mg tablet TK 1 T PO Q 12 H FOR 10 DAYS 07/06 completed Not Available Not Available Not Available oxycodone 5 mg tablet active Not Available Not Available No t Available neomycin-po lymyxin-hyd rocort 3.5 mg-10,000 unit/mL-1 % ear drops,susp Instill 4 drops into affected ear(s) by otic route 3 times per day active Not Available Not Available No t Available methylpheni date ER 27 mg tablet,exte nded release 24 hr Take 1 tablet every day by oral route in the morning. active Not Available Not Available No t Available Bactrim DS 800 mg-160 mg tablet Take 1 tablet every 12 hours by oral route for 10 days. 04/08 completed Not Available Not Available Not Available methylpheni date LA 40 mg biphasic 50-50 capsule,ext ended release active Not Available Not Available Not Available multivitami n active PRN Not Available Not Available Not Available methylpheni date CD 40 mg biphasic 30-70 capsule,ext ended release Take 1 capsule every day by oral route for 30 days. 04/24 completed Not Available Not Available Not Available Vyvanse 30 mg capsule Take 1 capsule every day by oral route for 30 days. 08/02 completed Not Available Not Available Not Available Vitals Date Recorded Body height Body weight Body mass index (BMI) Systolic blood pressure Diastolic blood pressure Provider Name and Address Organization Details Last Updated DateTime 09/10/2015 179.71 cm 35832.26 g 24.7 kg/m2 114 mm[Hg] 70 mm[Hg] Addie Lara [facility] 6 13:23:12 Date Recorded Body height Body weight Body mass index (BMI) Provider Name and Address Organization Details Last Updated DateTime 07/06/2016 179.71 cm 02588.69 g 22.2 kg/m2 Shell Holman M.A. [facility] 07/06/2016 11:03:13 Date Recorded Body height Body weight Body mass index (BMI) Systolic blood pressure Diastolic blood pressure Provider Name and Address Organization Details Last Updated DateTime 07/11/2016 179.71 cm 45053.15 g 23 kg/m2 110 mm[Hg] 60 mm[Hg] Irma Mahajan [facility] 7 15:12:59 Social History Question Answer Notes LastModified by Organizat ion Details LastModified Time Tobacco Smoking Status Never Smoker Shell Holman M.A. eysenia, [facility] 08/25/2011 16:09:38 Hard Of Hearing Or Deaf In One Or Both Ears? No Information not available 09/08/2015 Legally Blind In One Or Both Eyes? No Information not available 09/08/2015 Parent's Marital Status Information not available 02/26/2011 Home Situation Mother -- Information not available 02/26/2011 Siblings Cary Parker (F) 07/14/2002 Catalina Larios(F) 06/09/1988 [place] Information not available 01/29/2013 Parent's Name Lily Larios Information not available 02/26/2011 Parent's Name Reji Parker Information not available 02/26/2011 DSS/DCF Custody No [facility] Information not available 01/29/2013 Are You Passively Exposed To Smoke? Yes --mom Smokes Inside Information not available 08/29/2013 How Much Tobacco Do You Smoke? No Information not available 09/10/2015 Sex: Unknown Functional Status None recorded. Mental Status None recorded. Family History Relationship Description Onset Age of this Age Resolved Age Notes LastModified by Organization Details LastModified Time Mother Obese 12 [email or web address] Not available 09:07:35 Maternal Grandmother Seizure disorder 25 [email or web address] Not available 2014 09:07:35 Maternal Grandmother Asthma klisien Not available 2014 09:07:35 Maternal Grandmother Parkinson's disease kleduc Not available 2016 15:14:51 Paternal Grandfather Diabetes mellitus [email or web address] Not available 2014 09:07:35 Father Alcoholism 25 [email or web address] Not availabl e 10/27/2014 09:07:35 Notes:Updated verbally Medical History Condition Response ALLERGIC AND IMMUNOLOGIC PROBLEMS N DEVELOPMENTAL/ BEHAVIORAL PROBLEMS N MUSCLE/ JOINT/ BONE PROBLEMS Y RHEUMATOLOGIC PROBLEMS N HOSPITALIZATIONS N ENT PROBLEMS/OTITIS MEDIA/ CHRONIC N 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 RENAL PROBLEMS Y HEMATOLOGIC /ONCOLOGIC PROBLEMS N ACCIDENTS INJURIES Y OTHER N NEUROLOGIC/ SEIZURES OR CONVULSIONS N ADHD Y ENDOCRINE PROBLEMS/DIABETES N HEADACHES/MIGRAINES/DIZZINESS N GI PROBLEMS/CONSTIPATION N CONGENITAL AND GENETIC PROBLEMS N INFECTIOUS DISEASE PROBLEMS N PUMONARY PROBLEMS/ ASTHMA N ORTHOPEDIC PROBLEMS Y CHICKEN POX / VARICELLA HISTORY or POSIT LUZMARIA TITER Y PSYCH PROBLEMS Y Immunizations Vaccine Type Date Status Note Provider Nam e and Address Organization Details Recorded Time meningococcal MCV4P 1 completed Not Available [facility] 05/11/2019 02:33:25 Tdap 1 completed Not Available [facility] 05/11/2019 02:33:42 Influenza, split virus, trivalent, PF 1 completed Not Available [facility] 05/11/2019 02:35:17 Hib, unspecified formulation 9 completed Not Available [facility] 02/26/2011 03:18:43 IPV 0 completed Not Available [facility] 02/26/2011 03:18:43 DTaP, unspecified formulation 9 completed Not Available [facility] 02/26/2011 03:18:43 Hep B, unspecified formulation 9 completed Not Available [facility] 02/26/2011 03:19:20 DTaP, unspecified formulation 9 completed Not Available [facility] 02/26/2011 03:18:43 Hep B, unspecified formulation 9 completed Not Available [facility] 02/26/2011 03:18:43 DTaP, unspecified formulation 9 completed Not Available [facility] 02/26/2011 03:18:43 Hep B, unspecified formulation 9 completed Not Available [facility] 02/26/2011 03:19:20 Hib, unspecified formulation 9 completed Not Available [facility] 02/26/2011 03:18:43 IPV 9 completed Not Available [facility] 02/26/2011 03:18:43 DTaP, unspecified formulation 0 completed Not Available [facility] 02/26/2011 03:18:43 MMR 0 completed Not Available [facility] 02/26/2011 03:18:43 Hib, unspecified formulation 9 completed Not Available [facility] 02/26/2011 03:19:20 Hib, unspecified formulation 0 completed Not Available [facility] 02/26/2011 03:18:43 pneumococcal conjugate PCV 7 1 completed Not Available [facility] 02/26/2011 03:18:43 IPV 3 completed Not Available [facility] 02/26/2011 03:18:43 DTaP, unspecified formulation 3 completed Not Available [facility] 02/26/2011 03:19:20 pneumococcal conjugate PCV 7 0 completed Not Available [facility] 02/26/2011 03:18:43 MMR 3 completed Not Available [facility] 02/26/2011 03:18:43 IPV 9 completed Not Available [facility] 02/26/2011 03:18:43 HPV, quadrivalent 2 completed Not Available [facility] 05/11/2019 02:34:00 HPV, quadrivalent 2 completed Not Available [facility] 05/11/2019 02:34:01 HPV, quadrivalent 3 completed Not Available [facility] 05/11/2019 02:34:03 Influenza, split virus, quadrivalent, PF 4 completed Not Available [facility] 05/11/2019 02:35:59 Hep A, ped/adol, 2 dose 5 completed Not Available [facility] 05/11/2019 02:34:34 meningococcal MCV4P 5 completed Not Available [facility] 05/11/2019 02:36:06 Influenza, split virus, quadrivalent, PF 5 completed Not Available [facility] 05/11/2019 02:36:20 Hep A, ped/adol, 2 dose 6 completed Not Available [facility] 05/11/2019 02:36:44 Influenza, split virus, quadrivalent, PF 7 completed Not Available [facility] 05/11/2019 02:37:42 Past Encounters Encounter ID Performer Location Encounter Start Date Encounter Closed Date Diagnosis/Indication Diagnosis SNOMED-CT Code Diagnosis ICD10 Code [id number] [facility] [address] [place] [address] 12/19/2007 08:39:02 01/01/2009 01:23:50 [id number] [facility] [address] [place] [address] 06/04/2008 11:24:11 06/04/2008 12:30:17 [id number] [facility] [address] [place] [address] 4 10/06/2008 12:43:32 10/06/2008 13:29:42 [id number] [facility] [address] [place] [address] 01/14/2009 09:02:37 01/14/2009 09:39:58 [id number] [facility] [address] [place] [address] 05/12/2010 16:50:35 05/12/2010 17:11:28 [id number] [facility] [address] [place] [address] 08/19/2010 14:49:31 08/19/2010 17:35:49 [id number] [facility] [address] [place] [address] 09/15/2010 10:01:10 09/15/2010 10:41:34 [id number] [facility] [address] [place] [address] 01/26/2011 14:10:08 01/26/2011 15:18:57 [id number] [facility] [address] [place] [address] 02/04/2011 15:03:25 02/04/2011 16:38:11 [id number] [facility] [address] [place] [address] 03/23/2011 14:07:36 03/23/2011 15:02:31 [id number] [facility] [address] [place] [address] 06/01/2011 14:07:35 06/01/2011 15:24:13 [id number] [facility] [address] [place] [address] 08/25/2011 15:59:48 08/25/2011 17:22:05 [id number] [facility] [address] [address] 12/27/2011 08:53:23 12/27/2011 09:37:31 [id number] Carito Serna MD [facility] [address] [address] 05/31/2012 08:58:17 05/31/2012 09:06:01 [id number] Carito Serna MD [address] [address] 08/29/2012 14:56:55 08/29/2012 16:52:58 [id number] Светлана Fletcher R.N. [facility] [address] [address] 12/17/2012 16:31:11 12/17/2012 16:56:31 Acute pharyngitis [id number] [address] [address] 01/02/2013 08:36:31 01/02/2013 08:59:08 Ankle joint pain 173822908 Injury of ankle 83454188 6 [id number] Addie Alancatracho [address] [address] 4 01/10/2013 09:07:23 01/10/2013 12:01:40 Acute pharyngitis 892946805 [id number] Tosin Lutz R.N. [address] [address] 4 01/29/2013 14:10:51 01/29/2013 14:47:52 Otitis externa 2656873 [id number] Nidhi Dubois [address] [address] 4 03/29/2013 16:14:09 03/29/2013 17:16:47 Dysuria 18864307 [id number] Addie Jane [address] [address] 4 04/03/2013 16:10:50 04/03/2013 17:09:33 Attention deficit hyperactivity disorder, combined type 13366481 Dysuria 55833608 Dizziness 536896915 [id number] Deepti Hung [address] [address] 4 05/28/2013 08:42:30 05/28/2013 09:18:20 Muscle strain 32332847 Self inflicted injury 27 2176925 Chest pain 83372656 [id number] Addie Lara [address] [address] 4 07/03/2013 14:10:39 07/03/2013 16:29:25 Hip pain 06690093 Attention deficit hyperactivity disorder, combined type 91483480 [id number] Светлана Fletcher R.N. [address] [address] 4 08/29/2013 08:15:17 08/29/2013 13:17:08 Well child 441093711 Attention deficit hyperactivity disorder, combined type 14774216 Anxiety 08703106 Hip pain 78902888 [id number] Carito Serna MD [address] [address] 12/25/2013 16:19:51 12/26/2013 08:42:04 Attention deficit hyperactivity disorder, combined type 89505843 Anxiety 29845010 Depressive disorder 3548 9007 [id number] Addie Lara [address] [address] 4 01/17/2014 10:51:23 01/17/2014 12:43:38 Depressive disorder 87463716 Attention deficit hyperactivity disorder, combined type 58413334 Influenza vaccine needed 1414816167 106 [id number] Nidhi Dubois [address] [address] 4 02/24/2014 14:17:13 02/24/2014 15:19:41 Depressive disorder 51156519 Attention deficit hyperactivity disorder, combined type 36655255 Ankle joint pain 7548027 09 [id number] Klaudiavee MelvinMaty [address] [address] 04/11/2014 10:55:28 04/11/2014 11:36:20 Acute pharyngitis 423696468 Upper resp iratory infection 17510747 Viral syndrome 622690109 [id number] Nidhi Dubois [address] [address] 07/18/2014 10:46:15 07/18/2014 11:44:05 Acute pharyngitis 960583774 [id number] [address] [address] 4 09/10/2014 09:50:48 09/10/2014 15:03:19 Well child 890606416 Increased body mass index 34272790 Attention deficit hyperactivity disorder, combined type 68455615 Depressive disorder [id number] [address] 4 10/27/2014 09:00:56 10/27/2014 10:02:05 Acute pharyngitis 191137692 Sinusitis 25237917 [id number] Carito Serna MD [address] [address] 02/11/2015 15:16:13 02/11/2015 16:30:45 Depressive disorder 70084636 F32.9 Cellulitis of pinna 2322 84484 H60.12 Increased body mass index 22393739 Z68.41 Secondary erectile dysfunction 754932218 N52.8 Active or passive immunization 078060723 Z23 [id number] Carito Serna MD [address] [address] 09/10/2015 13:11:56 09/10/2015 15:26:02 Well child 263207079 Z00.129 Active or passive immunization 896906639 Z23 Nasal congestion 2234697 0 R09.81 Attention deficit hyperactivity disorder, combined type 09587298 F90.2 Depressive disorder 3548 9007 F32.9 [id number] Carito Serna MD [address] [address] 01/21/2016 12:50:43 01/21/2016 13:28:29 Acute conjunctivitis 17422528 H10.31 Cellulitis 965880666 L03 .90 [id number] Carito Serna MD [address] [address] 07/06/2016 10:59:47 07/06/2016 12:36:13 Eating disorder 66856453 F50.9 Sexually t ransmitted infectious disease 8757009 A64 Candidiasis of mouth 797 75541 B37.0 Depressive disorder 3548 9007 F32.9 Anxiety 37973743 F41.9 Attention deficit hyperactivity disorder, combined type 05708154 F90.2 [id number] Carito Serna MD [address] [address] 07/11/2016 15:08:27 07/11/2016 16:49:05 Adult health examination 315355084 Z00.01 Administra tion of influenza vaccine 94477628 Z23 Eating disorder 09939211 F50.9 Candidiasis of mouth 797 45582 B37.0 Attention deficit hyperactivity disorder, combined type 01302156 F90.2 Sexually t ransmitted infectious disease 7591691 A64 Eczema 46332314 L30.9 [id number] Carito Serna MD [address] [address] 07/15/2016 16:10:50 07/15/2016 17:52:48 Human immunodeficiency virus infection 66086538 B20 Sexually t ransmitted infectious disease 9888779 A64 Eating disorder 79140939 F50.9 Health Concerns Section Related Observation LastModified by Organization Detai ls LastModified Time None Recorded Concern Status LastModified by Organization Details LastModified Time None Recorded Advance Directives Directive None Recorded Payers Encounter Date Sequence Insurance Name Policy Number Policy Ruelas Covered Member ID Ruelas Member ID Guarantor Name 09/10/2015 1 [place]: [facility] Kelby Parker [id number] [place] 09/10/2015 1 [facility] (MEDICAID HMO) [id number] [id number]2016 1 [place] [facility] Kelby Parker [id number] [facility] 01/21/2016 1 [facility] (MEDICAID HMO) [id number] Kelby Parker [id number] [facility] 07/06/2016 1 [place] [facility] Kelby Parker [id number] [place] 07/06/2016 1 [facility] [id number] Kelby Parker [id number] Julianna Ric 07/11/2016 1 [place] [facility] Kelby Parker [id number] Julianna [place] 07/11/2016 1 [facility] [id number] Kelby Parker [id number] Julianna [place] 07/15/2016 1 [place] [facility] Kelby Parker [id number] Julianna [place] 07/15/2016 1 [facility] [id number] Kelby Parker [id number] Julianna Ric Notes Date Note Type Note Provider Name and Address Organization Details Recorded Time 01/21/2016 text/html RS Sick Visit Na rrative HistoryReported bypatient.Notes:Today is the 3rd day of R eye redness & swelling. + itchy & slightly painful. + yellowish green discharge. Crusted over upon waking. Afebrile. Nasal congestion started yesterday ? allergies. Cough x over 1 week - worsening over the past few days. No ear pain. No ST. Does not wear contacts. Has been taking Mucinex with slight relief - last dose was 1.5 hrs ago. Also tried OTC itch relief eye drops without improvement. Boyfriend had URI symptoms. Cough definitely getting slowly better.FH neg RAD, PMH no hx wheezing. NO ill contacts. NO makeup. Carito Serna MD [address] [place] [address], [phone], [facility] 01/21/2016 13:20:44 07/06/2016 text/html EATING DISORDERR eported bypatient.weight and eating habitsweight loss18 pounds; what is your ideal weight? (165); what is most you ever weighed (189);does not eat regular meals eating behaviorexerciseno what type? how many hours a day how many days a week what intensity How stressed do you feel if you miss a workout? ; 24 hour diet history Amounts of food , food groups how much fluid what restrictions ; has not eaten regular meals in months, goes whole days without any food or drink, some water, occ smoothies at work with fruit, feels full immediately, drinks coffee contextdo you make yourself vomit because you feel too full? no; do you think you have lost control over how much you eat? no; have you lost >14 pounds in a 3 month period? yes; do you think you are fat even though others tell you that you are too thin? no; would you say that food dominates your life? no;disordered eating;excessive restriction;feeling anxious;feeling sad/ depressed/ crying a lot;family crises/stressors;substa nce use associated symptomsdizziness; dry skin with follicular rash on BLEs, dry hands but not quite eczema, having trouble douching his rectum - used to be able to douch and all be clean in 20 min (doing prior to anal sex), now douches and feels water has come out clear but then 5-10 min later murky brown liquid comes out energynormal amount of energy; has job at [employer] - new since Feb 2016 behavioral historyalcohol: use (occ only); caffeine use (many coffees per day); behavioral history/ any previous therapy; chronic emotional stress -school or home; who lives at homemom only (gm, sister); pt has tried to set up basement as his own space/apartment though without kitchen/way to cook, spends majority of his time there and does not come upstairs to join family for meals or much otherwise sexualsexually active yes (homosexual relationship with one partner >6 months, anal sex where he is recipient, stopped having sex Jan 2016 due to problems not feeling clean enough /see above); no abuse past medical historyother concerns in past (psych issues of anxiety /depression/suicide attempts in past) Anorexia Nervosasunken cheeks, sallow skin Bulimia Nervosadry skin diagnostic criteria for anorexia nervosano body image issues now though months ago thought he was too fat diagnostic criteria for bulimia nervosano vomiting/purging, feels nauseous after eating very small amountsNotes:Social - was in danger of losing house several months ago and then GM moved back home in Apr 2016, pt was all prepared to move out/move onto something new so though happy GM back and they can stay in their home he is disappointed; in relationship with supportive male, admits both he and his partner are not good at communicating but last night his partner and he talked and pt realizes that his partner cares and wants alf relationship; Mom busy with work and caring for his GM; Mom used to cook all the time and now she is not as much;Meds - on Adderall, takes when needs it , ranges from zero to 50 mg per day, will take 30 mg in AM and 20 mg later if longer work shift; drinks lots of coffee;Drugs - occ cocaine snorting few times, occ alcohol use but never drunk, mj every day multiple times a day - decided last night to focus on himself and try to cut back on mj; almost one ppd of cigs filtered;Therapist - not aware of eating issues ora all of his underlying issues;[facility] med provider - Sertraline 100 mg just started 10 d as pt request;Dizziness - vasovagal, stands up and has passed out 2 x in last 8 months, was not drinking/eating those days, witnessed and no sz activity; notes lost muscle mass, cracking nails, dry skin gama LEs and handsRS Sick Visit Narrative HistoryReported bypatient.Notes:Here for weight loss, loss of appetite, has no want for food at times, no desire to eat, will go days without eating, feels its med related, no vom, is very irregular with stools -diarrhea sometimes then constipation, does eat healthy when he does get around to eating, feels full very fast or gets nauseous. Started Setraline about 10 days ago. Carito Serna MD [address] [place] [address], [phone], [facility] 07/06/2016 12:25:27 07/15/2016 text/html RS Sick Visit Na rrative HistoryReported bypatient.Notes:Present s for lab results. Pt asked to return to discuss. Labs done for wt loss/eating problems/thrush and STD screening.Pt has had anal sex with 30-35 or more men in his lifetime - all or most of whom were in the last year, only used condoms if was one night hookup , in relationship for last 8 mths with male who was reportedly promiscuous before they were together and did not use condoms. In this relationship they are not using condoms. Has not been tested recently for STDs, felt that he did not want to know when discussed in office today. Not SA since Jan 2016.Has thrush.Eating - since last visit has felt better, has been eating at least 2 meals/day and now has appetite again. No n/v/d/c. Eczema improving on hands with inc lotion. Carito Serna MD [address] [place] [address], [phone], [facility] 07/15/2016 17:55:49
[2024-04-15 11:37] LABS: MANUAL DIFF FLAG NO
[2024-04-15 11:41] LABS: Basophils Percent Auto 0.2 % (0-2); Eosinophils Absolute Auto 0.1 X10*3/uL (0.0-0.4); Eosinophils Percent Auto 2.3 % (0-4); Hematocrit 41.7 % (42.0-52.0); Imm Gran Abs Auto 0.01 X10*3/uL (0.00-0.03); Imm Gran Pct Auto 0.2 % (0.0-0.4); Lymphocytes Absolute Auto 2.6 X10*3/uL (1.2-4.9); Lymphocytes Percent Auto 45.5 % (20-40); Mean Corpuscular HGB Conc 33.6 g/dl (31.0-36.0); Mean Corpuscular Hemoglobin 30.3 pg (27.0-33.0); Mean Corpuscular Volume 90.3 fL (80.0-98.0); Mean Platelet Volume 11.7 fL (9.4-12.4); Monocytes Absolute Auto 0.6 X10*3/uL (0.1-1.2); Monocytes Percent Auto 9.7 % (2-11); Neutrophils Absolute Auto 2.4 x10*3/uL (2.0-8.3); Neutrophils Percent Auto 42.1 % (45-73); Platelet Count 206 X10*3/uL (160-400); Red Blood Count 4.62 X10*6/uL (4.60-5.80); Red Cell Distribution Width 12.6 % (11.0-16.0); White Blood Count 5.7 X10*3/uL (4.8-10.8)
[2024-04-15 12:07] LABS: Alanine Aminotransferase 14 U/L (0-40); Albumin Level 4.6 g/dL (3.5-5.0); Alkaline Phosphatase 63 U/L (39-117); Anion Gap 10 (12-20); Aspartate Amino Transferase 21 U/L (5-37); Bilirubin Total 0.4 mg/dL (0.0-1.0); Blood Urea Nitrogen 10 mg/dL (9-16); Carbon Dioxide 27 mmol/L (22-29); Chloride 108 mmol/L (96-108); Estimated Glomerular Filt Rate > 60; Glucose Random 128 mg/dL (60-115); Potassium 4.4 mmol/L (3.3-5.1); Sodium 141 mmol/L (135-145); Total Protein 7.6 g/dL (6.5-8.0)
[2024-04-16 13:23] LABS: HIV RNA PCR Qn Copies 27 copies/mL (NOT DETECTED); HIV RNA PCR Qn Log Copies 1.43 (NOT DETECTED)
[2024-04-18 21:14] LABS: Absolute CD3 Count 1640 cells/uL (840-3060); Absolute CD4 Count 414 cells/uL (490-1740); Absolute CD8 Count 1100 cells/uL (180-1170); Absolute Lymphocytes 2474 cells/uL (850-3900); CD4 CD8 Ratio 0.38 (0.86-5.00); Percent CD3 Cells 66 % (57-85); Percent CD4 Cells 17 % (30-61); Percent CD8 Cells 44 % (12-42)
== END 2024-04-15 09:57 | disposition home or self-care (01) ==
LOC: HO.HHCL 09:56
PROVIDERS: Visit Provider Internal Medicine
DX: B20 Human immunodeficiency virus [HIV] disease (principal)
CPT/HCPCS: 36415; 80053; 85025; 86359; 86360; 87536

== ENCOUNTER 2024-09-05 16:44 | Outpatient (REF) | payer MEDICAID, SELFPAY | END 2024-09-05 16:45 | disposition home or self-care (01) | LOC: HO.HHCLNP 16:44 | PROVIDERS: Visit Provider Family Medicine | DX: Z13.89 Encounter for screening for other disorder (principal) | CPT/HCPCS: 87070; 87205 ==

== ENCOUNTER 2024-10-21 14:29 | Outpatient (REF) | payer MEDICAID, SELFPAY ==
--- NOTE | ~2024-10-21 | XR_ITS ---
EXAMINATION: XR SACRUM AND COCCYX CLINICAL INFORMATION: coccys pain COMPARISON: None available. TECHNIQUE: 2 views of the sacrum and 2 views of the coccyx were obtained. FINDINGS: No definite fracture or deformity is identified in the sacrum and coccyx.. There is flattening of the lateral femoral head neck junctions, bilaterally, and cystic changes. XR/XR sacrum coccyx min 2V IMPRESSION: Unremarkable sacrum and coccyx. 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 Correlate for signs and symptoms. Electronically signed by: Michael Welch MD 10/21/2024 03:26 PM EDT
--- OUTSIDE RECORDS SUMMARY | 2024-10-21 15:01 | XMS_ITS | Clinical Summary ---
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 Name Role Phone Unavailable Primary Care Provider Unavailabl e Social History Tobacco Use Types Packs/Day Years Used Date Smoking Tobacco: Never Assessed Sex and Gender Information Value Date Recorded Sex Assigned at Not on file Legal Sex Male 1:09 PM EDT Gender Identity Not on file Sexual Orientation Not on file Plan of Treatment Health Maintenance Due Date Last Done Comments Hepatitis C Virus Screening 1998 HIV Screening 2011 HPV Vaccines (1 - Male 3-dos e series) 2013 DTaP/Tdap/Td Vaccines (1 - Tdap) 2017 Hepatitis B Vaccines (1 of 3 - 19+ 3-dose series) 2017 COVID-19 Vaccine ( - 2023-2 5 season) 2023 Pneumococcal Vaccine: Pediat marcel (0-5 Years) and At-Risk Patients (6 to 49 Years) Aged Out No longer eligible b ased on patient's age to complete this topic
--- OUTSIDE RECORDS SUMMARY | 2024-10-21 15:01 | XMS_ITS | Data Portability ---
Author Organization [place] - [facility], [facility] Address [address] [place] [address] Assessment Encounter Date Assessment Date Assessment LastModified [...] looking for a job, may relocate to [facility] since older daughter lives there, [...] necessary changes, wt check next week at [facility]; Issues with anal sex/douching of anus - [...] Time Details Appointments None recorded . Lab HIV (1+2) Ab screen, serum 2016 017 ecardio [facility] (Centralized Electronic Ordering - All Locations), Patient Can Go To The Location Of Their Choice, 7 13:23:00 HIV (1+2) Ab, western blot, serum 2016 017 ecardio [facility] (Centralized Electronic Ordering - All Locations), Patient Can Go To The Location Of Their Choice, 7 13:23:12 hepatiti s C virus Ab, serum 2016 017 CONNIE [facility] (Centralized Electronic Ordering - All Locations), Patient Can Go To The Location Of Their Choice, 16:53:02 HBsAg (hepatit is B surface Ag), serum 2016 017 CONNIE [facility] (Centralized Electronic Ordering - All Locations), Patient Can Go To The Location Of Their Choice, 16:45:47 hepatiti s B surface Ab, qualitat luzmaria, serum 2016 017 CONNIE [facility] (Centralized Electronic Ordering - All Locations), Patient Can Go To The Location Of Their Choice, 7 17:05:40 CT + NG DNA, PCR, unspecif ied specimen 2016 017 Fresh Dish [facility] (Centralized Electronic Ordering - All Locations), Patient Can Go To The Location Of Their Choice, 7 10:28:18 HIV (1+2) Ab screen, [facility] Patient Can Go To The Location Of Their Choice, 7 09:05:52 HIV (1+2) Ab, western blot, serum 2016 [facility]), Patient Can Go To The Location Of Their Choice, 09:05:52 RPR (rapid plasma reagin), serum 2016 017 CONNIE [facility] (Centralized Electronic Ordering - All Locations), Patient Can Go To The Location Of Their Choice, 7 16:45:43 ESR (erythro cyte sediment ation rate), blood 2016 017 CONNIE [facility] (Centralized Electronic Ordering - All Locations), Patient Can Go To The Location Of Their Choice, 14:39:16 CBC w/ auto diff 2016 017 CONNIE [facility] (Centralized Electronic Ordering - All Locations), Patient Can Go To The Location Of Their Choice, 7 16:00:07 TSH + free T4, serum 2016 017 mswienton [facility] (Centralized Electronic Ordering - All Locations), Patient Can Go To The Location Of Their Choice, 7 10:27:28 carotene , serum 2016 017 CONNIE [facility] (Centralized Electronic Ordering - All Locations), Patient Can Go To The Location Of Their Choice, 7 08:18:15 tissue transglu taminase Ab, serum 2016 mswienton [facility] (Centralized Electronic Ordering - All Locations), Patient Can Go To The Location Of Their Choice, 7 10:28:01 iga, quantita tive, serum 2016 017 CONNIE [facility] (Centralized Electronic Ordering - All Locations), Patient Can Go To The Location Of Their Choice, 7 14:59:18 magnesiu m, free, serum 2016 017 CONNIE [facility] (Centralized Electronic Ordering - All Locations), Patient Can Go To The Location Of Their Choice, 7 16:01:41 urinalys is, complete 2016 017 CONNIE [facility] (Centralized Electronic Ordering - All Locations), Patient Can Go To The Location Of Their Choice, 7 02:08:18 CMP, serum or plasma 2016 017 CONNIE [facility] (Centralized Electronic Ordering - All Locations), Patient Can Go To The Location Of Their Choice, [id number] 7 16:01:39 amylase + lipase, serum 2016 017 [facility] (Centralized Electronic Ordering - All Locations), Patient Can Go To The Location Of Their Choice, [id number] 7 09:05:52 prealbum in, serum 2016 017 CONNIE [facility] (Centralized Electronic Ordering - All Locations), Patient Can Go To The Location Of Their Choice, [id number] 7 16:01:42 urinalys is, dipstick 2016 017 yissel [facility], [address] [place] [address], [place], [address], 7 12:13:34 CT + NG DNA, PCR, urine 2015 016 [email or web address] [id number] [facility] (Centralized Electronic Ordering - All Locations), Patient Can Go To The Location Of Their Choice, [facility] 6 04:08:45 Referral pediatri c infectio us disease referral 2016 017 yissel Not available 7 08:27:02 Procedures None recorded . Surgeries None recorded . Imaging electroc ardiogra m 2016 017 [facility] (Outt Non-Invasive Cardiology Scheduling), [facility] [place], [address], 7 09:24:05 Medication Orders hydrocor tisone valerate 0.2 % topical cream 2016 017 INTERFACE Not available 7 15:39:48 clotrima zole 10 mg sharif 2016 017 INTERFACE Not available 7 12:15:44 Polytrim 10,000 unit-1 mg/mL eye drops 2015 016 cszczepanek Not available 7 11:01:05 Augmenti n 875 mg-125 mg tablet 2015 016 [email or web address] Not available 11:00:47 Patient TargetsNo targets recorded. Patient Instructions Encounter Date Encounter Id Patient Instructions Last Modified By Organization Details Last Modified Time 09/10/2015 [id number] patient health questionnaire modified for adolescents* Not available 04/09/2016 04:08:45 [id number] program - 1 hour of exercise [email or web address] [id number] Not available 04/09/2016 04:08:43 immunization: wh at you need to know [email or web address] [id number] Not available 04/09/2016 04:08:43 Well Visit, 12 Years to Young Teen: Care Instructions [email or web address] [id number] Not available 04/09/2016 04:08:43 07/11/2016 [id number] program - 5 fruits & veggies CONNIE [...] Abnormal Flag Note LastModifiedBy Organization Detail LastModifiedTime 07/12/19 17 07/11/2016 patie nt healt h quest ionna fanta depre ssion asses sment * PHQ-9 positi ve Not Available [facility] [address] [place] [address], [phone], 07/11/2016 15:09:21 07/07/19 17 07/06/2016 urina lysis , dipst ick Leukocytes Negati ve Not Available [facility] [address] [place], [address], 07/06/2016 11:57:23 07/07/19 17 07/06/2016 urina lysis , dipst ick Nitrite negati ve Not Available [facility] [address] [place], [address], 07/06/2016 11:57:23 07/07/19 17 07/06/2016 urina lysis , dipst ick Protein Trace Not Available [facility] [address] [place], [address], 07/06/2016 11:57:23 07/07/19 17 07/06/2016 urina lysis , dipst ick pH 7.5 Not Available [facility] [address] [place] [address], [phone], 07/06/2016 11:57:23 07/07/19 17 07/06/2016 urina lysis , dipst ick Blood Negati ve Not Available [facility] [address] [place] [address], [phone], 07/06/2016 11:57:23 07/07/19 17 07/06/2016 urina lysis , dipst ick Ketone Negati ve Not Available [facility] [address] [place] [address], [phone], 07/06/2016 11:57:23 07/07/19 17 07/06/2016 urina lysis , dipst ick Glucose Negati ve Not Available [facility] [address] [place] [address], [phone], 07/06/2016 11:57:23 09/10/19 16 09/10/2015 patie nt healt h quest ionna fanta modif ied for adole scent s* PHQ-9 positi ve Not Available [facility] [address] [place] [address], [phone], 09/10/2015 13:15:36 09/10/19 16 09/11/2015 CT + NG DNA, PCR, urine urine chlamydia amp probe NEGAT LUZMARIA No Chlam ydia Trach omati s RNA detec lavonne in this patie nt's sampl e (REFE RENCE RANGE /NORM AL VALUE : NOT DETEC LAVONNE) Not Available [facility] (Centralized Electronic Ordering - All Locations) Patient Can Go To The Location Of Their Choice, [id number] 09/11/2015 14:27:11 09/10/19 16 09/11/2015 CT + [...] Disea se Contr ol and Preve ntion ([facility]) recom mends confi rmato ry retes ting using cultu re or a diffe rent nucle ic acid ampli ficat ion test when posit luzmaria resul ts occur , if indic ated. Testi ng perfo rmed or repor lvaonne by [facility] Refer ence Labor cyndii es, a Servi ce of [facility], [address], [place] [address] CLIA [id number] Kim bruce MD, PhD, Medic al [facility] Not Available [facility] (Centralized Electronic Ordering - All Locations) Patient Can Go To The Location Of Their Choice, 09/11/2015 14:27:11 07/07/1907/07/2016 urina lysis , compl ete appear/color DARK YELLO W CLEAR Not Available [facility] (Centralized Electronic Ordering - All Locations) Patient Can Go To The Location Of Their Choice, 07/07/2016 02:08:17 07/07/1907/07/2016 urina lysis , compl ete sp. gravity 1.026 (1.002 -1.030 ) Not Available [facility] (Centralized Electronic Ordering - All Locations) Patient Can Go To The Location Of Their Choice, 07/07/2016 02:08:17 07/07/1907/07/2016 urina lysis , compl ete urine pH 7.0 (4.0-8 .0) Not Available [facility] (Centralized Electronic Ordering - All Locations) Patient Can Go To The Location Of Their Choice, 07/07/2016 02:08:17 07/07/1907/07/2016 urina lysis , compl ete urine albumin 2+ (neg) abnormal Not Available [facility] ([facility] Order[facility] - All Locations) Patient Can Go To The Location Of Their Choice, 07/07/2016 02:08:17 07/07/1907/07/2016 urina lysis , compl ete urine glucose NEGATI VE (neg) Not Available [facility] (Centralized Electronic Ordering - All Locations) Patient Can Go To The Location Of Their Choice, 07/07/2016 02:08:17 07/07/1907/07/2016 urina lysis , compl ete urine ketones TRACE (neg) abnormal Not Available [facility] ([facility] Ordering - All Locations) Patient Can Go To The Location Of Their Choice, 07/07/2016 02:08:17 07/07/1907/07/2016 urina lysis , compl ete urine bilirubin NEGATI VE (neg) Not Available [facility] (Centralized Electronic Ordering - All Locations) Patient Can Go To The Location Of Their Choice, 07/07/2016 02:08:17 07/07/1907/07/2016 urina lysis , compl ete urine hemoglobn NEGATI VE (neg) Not Available [facility] (Centralized Electronic Ordering - All Locations) Patient Can Go To The Location Of Their Choice, 07/07/2016 02:08:07/07/1907/07/2016 urina lysis , compl ete urine nitrite NEGATI VE (neg) Not Available [facility] (Centralized Electronic Ordering - All Locations) Patient Can Go To The Location Of Their Choice, 07/07/2016 02:08:07/07/1907/07/2016 urina lysis , compl ete urine leukocyte NEGATI VE (neg) Not Available [facility] (Centralized Electronic Ordering - All Locations) Patient Can Go To The Location Of Their Choice, 07/07/2016 02:08:07/07/1907/07/2016 urina lysis , compl ete urobilinogen 4 mg/dL (norm) abnormal Not Available [facility]) Patient Can Go To The Location Of Their Choice, 07/07/2016 02:08:17 07/07/1907/07/2016 urina lysis , compl ete urine WBC's <1 /hpf (0-5) Not Available [facility] ([facility] Ordering - All Locations) Patient Can Go To The Location Of Their Choice, 07/07/2016 02:08:17 07/07/1907/07/2016 urina lysis , compl ete urine RBC's NONE SEEN /hpf (<3) Not Available [facility] (Centralized Electronic Ordering - All Locations) Patient Can Go To The Location Of Their Choice, 07/07/2016 02:08:17 07/07/1907/07/2016 urina lysis , compl ete mucus HEAVY /lpf Not Available [facility] (Centralized Electronic Ordering - All Locations) Patient Can Go To The Location Of Their Choice, 07/07/2016 02:08:17 07/07/1907/07/2016 urina lysis , compl ete transitional epith <1 /hpf Not Available [facility] ([facility] Ordering - All Locations) Patient Can Go To The Location Of Their Choice, [id number] 07/07/2016 02:08:17 07/07/1907/07/2016 urina lysis , compl ete hyaline cast 4 lpf (0-2) high Not Available [facility] - [facility] Locations) Patient Can Go To The Location Of Their Choice, [id number] 07/07/2016 02:08:17 07/07/1907/08/2016 CT + NG DNA, PCR, urine urine chlamydia amp probe NEGAT LUZMARIA No Chlam ydia Trach omati s RNA detec lavonne in this patie nt's sampl e (REFE RENCE RANGE /NORM AL VALUE : NOT DETEC LAVONNE) Not Available [facility] (Centralized Electronic Ordering - All Locations) Patient Can Go To The Location Of Their Choice, [id number] 07/08/2016 07:05:47 07/07/1907/08/2016 CT + NG DNA, PCR, urine urine [...] tis and N.Wilman orrho eae. A negat luzmraia resul t does not precl ude infec [...] r if neede d. Conta ct phone dmitri r . Thera peuti c failu re or succe ss canno t be deter mined with the Aptim a Combo 2 assay since nucle ic acid may persi st follo wing appro priat e antim icrob ial thera py. The Cente rs for Disea se Contr ol and Preve ntion ([facility]) recom mends confi rmato ry retes ting using cultu re or a diffe rent nucle ic acid ampli ficat ion test when posit luzmaria resul ts occur , if indic ated. Not Available [facility] (Centralized Electronic Ordering - All Locations) Patient Can Go To The Location Of Their Choice, 07/08/2016 07:05:47 07/14/19 17 07/13/2016 ESR (eryt [...] in these patie nts. Not Available [facility] (Centralized Electronic Ordering - All Locations) Patient Can Go To The Location Of Their Choice, 07/13/2016 14:39:16 07/14/1907/13/2016 tissu e trans gluta tiffany e Ab, serum free T4 1.05 NG/dL (0.70- 1.80) NOTE: ADULT REFER ENCE RANGE MAY NOT APPLY TO PEDIA TRIC PATIE NTS. INTER PRET RESUL TS WITH CAUTI ON. Not Available [facility] (Centralized Electronic Ordering - All Locations) Patient Can Go To The Location Of Their Choice, 07/13/2016 15:52:47 07/14/19 17 07/13/2016 TSH + free T4, serum TSH 0.80 mIU/m L (0.40- 4.00) NOTE: ADULT REFER ENCE RANGE MAY NOT APPLY TO PEDIA TRIC PATIE NTS. INTER PRET RESUL TS WITH CAUTI ON. Not Available [facility] (Centralized Electronic Ordering - All Locations) Patient Can Go To The Location Of Their Choice, 07/13/2016 15:52:48 07/14/1907/13/2016 CBC w/ auto diff WBC 4.4 K/mm3 (4.0-1 1.0) Not Available [facility] (Centralized Electronic Ordering - All Locations) Patient Can Go To The Location Of Their Choice, 07/13/2016 16:00:07 07/14/19 17 07/13/2016 CBC w/ auto diff RBC 5.39 M/mm3 (4.70- 6.10) Not Available [facility] (Centralized Electronic Ordering - All Locations) Patient Can Go To The Location Of Their Choice, 07/13/2016 16:00:07 07/14/1907/13/2016 CBC w/ auto diff HGB 15.4 gm/dL (14.0- 18.0) Not Available [facility] (Centralized Electronic Ordering - All Locations) Patient Can Go To The Location Of Their Choice, 07/13/2016 16:00:07 07/14/1907/13/2016 CBC w/ auto diff HCT 47.5 % (42.0- 52.0) Not Available [facility] (Centralized Electronic Ordering - All Locations) Patient Can Go To The Location Of Their Choice, 07/13/2016 16:00:07 07/14/1907/13/2016 CBC w/ auto diff MCV 88.1 fL (80.0- 94.0) Not Available [facility] (Centralized Electronic Ordering - All Locations) Patient Can Go To The Location Of Their Choice, 07/13/2016 16:00:07 07/14/1907/13/2016 CBC w/ auto diff MCH 28.6 pg (27.0- 34.0) Not Available [facility] (Centralized Electronic Ordering - All Locations) Patient Can Go To The Location Of Their Choice, 07/13/2016 16:00:07 07/14/1907/13/2016 CBC w/ auto diff MCHC 32.4 g/dL (33.0- 37.0) low Not Available [facility] (Centralized Electronic Ordering - All Locations) Patient Can Go To The Location Of Their Choice, 07/13/2016 16:00:07 07/14/19 17 07/13/2016 CBC w/ auto diff plt 245 K/mm3 (150-4 60) Not Available [facility] (Centralized Electronic Ordering - All Locations) Patient Can Go To The Location Of Their Choice, 07/13/2016 16:00:07 07/14/19 17 07/13/2016 CBC w/ auto diff RDW-SD 40.7 fL (<47.0 ) Not Available [facility] (Centralized Electronic Ordering - All Locations) Patient Can Go To The Location Of Their Choice, 07/13/2016 16:00:07 07/14/19 17 07/13/2016 CBC w/ auto diff MPV 11.6 fL (9.4-1 2.4) Not Available [facility] (Centralized Electronic Ordering - All Locations) Patient Can Go To The Location Of Their Choice, 07/13/2016 16:00:07 07/14/19 17 07/13/2016 CBC w/ auto diff automated NRBC 0.0 #/100 _WBC' s Not Available [facility] (Centralized Electronic Ordering - All Locations) Patient Can Go To The Location Of Their Choice, 07/13/2016 16:00:07 07/14/19 17 07/13/2016 CBC w/ auto diff abs. NRBC 0.0 K/mm3 Not Available [facility] ([facility]ized Electronic Ordering - All Locations) Patient Can Go To The Location Of Their Choice, 07/13/2016 16:00:07 07/14/19 17 07/13/2016 CBC w/ auto diff neut # 1.6 K/mm3 (1.3-7 .0) Not Available [facility] ([facility]ized Electronic Ordering - All Locations) Patient Can Go To The Location Of Their Choice, 07/13/2016 16:00:07 07/14/19 17 07/13/2016 CBC w/ auto diff lymph # 1.9 K/mm3 (0.8-3 .1) Not Available [facility] ([facility]ized Electronic Ordering - All Locations) Patient Can Go To The Location Of Their Choice, 07/13/2016 16:00:07 07/14/19 17 07/13/2016 CBC w/ auto diff mono# 0.7 K/mm3 (0.4-1 .3) Not Available [facility] ([facility]ized Electronic Ordering - All Locations) Patient Can Go To The Location Of Their Choice, [id number] 07/13/2016 16:00:07 07/14/19 17 07/13/2016 CBC w/ auto diff eo # 0.2 K/mm3 (0.0-0 .4) Not Available [facility] ([facility]ized Electronic Ordering - All Locations) Patient Can Go To The Location Of Their Choice, 07/13/2016 16:00:07 07/14/19 17 07/13/2016 CBC w/ auto diff neut 35.5 % (44-76 ) low Not Available [facility] ([facility]ized Electronic Ordering - All Locations) Patient Can Go To The Location Of Their Choice, 07/13/2016 16:00:07 07/14/19 17 07/13/2016 CBC w/ auto diff lymph 38.8 % (15-43 ) Not Available [facility] ([facility]ized Electronic Ordering - All Locations) Patient Can Go To The Location Of Their Choice, 07/13/2016 16:00:07 07/14/19 17 07/13/2016 CBC w/ auto diff atypical lymphs 5.0 % Not Available [facility] ([facility] Ordering - All Locations) Patient Can Go To The Location Of Their Choice, 07/13/2016 16:00:07 07/14/19 17 07/13/2016 CBC w/ auto diff monocyte 15.7 % (4.5-1 0.5) high Not Available [facility] ([facility]ized [facility] Ordering - All Locations) Patient Can Go To The Location Of Their Choice, 07/13/2016 16:00:07 07/14/19 17 07/13/2016 CBC w/ auto diff eo 5.0 % (0-6) Not Available [facility] ([facility] Ordering - All Locations) Patient Can Go To The Location Of Their Choice, 07/13/2016 16:00:07 07/14/19 17 07/13/2016 CBC w/ auto diff baso 0.0 % (0-2) Not Available [facility] ([facility] Ordering - All Locations) Patient Can Go To The Location Of Their Choice, [id number] 07/13/2016 16:00:07 07/14/19 17 07/13/2016 CBC w/ auto diff plt estimate ADEQUA TE Not Available [facility] ([facility]ized Electronic Ordering - All Locations) Patient Can Go To The Location Of Their Choice, 07/13/2016 16:00:07 07/14/19 17 07/13/2016 CBC w/ auto diff platelet comment FEW LARGE PLATE LETS Not Available [facility] ([facility] Ordering - All Locations) Patient Can Go To The Location Of Their Choice, 07/13/2016 16:00:07 07/14/19 17 07/13/2016 amyla se, serum or plasm a amylase 48 U/L (28-10 0) Not Available [facility] ([facility] Ordering - All Locations) Patient Can Go To The Location Of Their Choice, 07/13/2016 16:01:38 07/14/19 17 07/13/2016 CMP, serum or plasm a glucose 85 mg/dL (70-99 ) Not Available [facility] ([facility] Ordering - All Locations) Patient Can Go To The Location Of Their Choice, 07/13/2016 16:01:39 07/14/19 17 07/13/2016 CMP, serum or plasm a BUN 15 mg/dL (6-20) Not Available [facility] ([facility] Ordering - All Locations) Patient Can Go To The Location Of Their Choice, 07/13/2016 16:01:39 07/14/19 17 07/13/2016 CMP, serum or plasm a creatinine 0.8 mg/dL (0.7-1 .2) Not Available [facility] ([facility] Ordering - All Locations) Patient Can Go To The Location Of Their Choice, 07/13/2016 16:01:39 07/14/19 17 07/13/2016 CMP, serum or plasm a sodium 141 mmol/ L (133-1 45) Not Available [facility] ([facility] Ordering - All Locations) Patient Can Go To The Location Of Their Choice, 07/13/2016 16:01:39 07/14/19 17 07/13/2016 CMP, serum or plasm a potassium 4.5 mmol/ L (3.6-5 .2) Not Available [facility] ([facility]ized [facility] Ordering - All Locations) Patient Can Go To The Location Of Their Choice, 07/13/2016 16:01:39 07/14/19 17 07/13/2016 CMP, serum or plasm a chloride 104 mmol/ L (98-10 7) Not Available [facility] ([facility] Ordering - All Locations) Patient Can Go To The Location Of Their Choice, 07/13/2016 16:01:39 07/14/19 17 07/13/2016 CMP, serum or plasm a bicarbonate 25 mmol/ L (22-29 ) Not Available [facility] ([facility] Ordering - All Locations) Patient Can Go To The Location Of Their Choice, 07/13/2016 16:01:39 07/14/19 17 07/13/2016 CMP, serum or plasm a anion gap 12 (4-17) Not Available [facility] ([facility] Ordering - All Locations) Patient Can Go To The Location Of Their Choice, 07/13/2016 16:01:39 07/14/19 17 07/13/2016 CMP, serum or plasm a albumin 4.6 gm/dL (3.4-4 .8) Not Available [facility] ([facility]ized Electronic Ordering - All Locations) Patient Can Go To The Location Of Their Choice, 07/13/2016 16:01:39 07/14/19 17 07/13/2016 CMP, serum or plasm a calcium 9.3 mg/dL (8.6-1 0.5) NOTE: ADULT REFER ENCE RANGE MAY NOT APPLY TO YOEL CHACON NTS. INTER PRET RESUL TS WITH CAUTI ON. Not Available [facility] ([facility]ized Electronic Ordering - All Locations) Patient Can Go To The Location Of Their Choice, 07/13/2016 16:01:39 07/14/19 17 07/13/2016 CMP, serum or plasm a bilirubin,to jammie 0.3 mg/dL (0-1.2 ) Not Available [facility] ([facility] Ordering - All Locations) Patient Can Go To The Location Of Their Choice, 07/13/2016 16:01:39 07/14/19 17 07/13/2016 CMP, serum or plasm a total protein 7.3 gm/dL (6.2-8 .2) Not Available [facility] ([facility]ized Electronic Ordering - All Locations) Patient Can Go To The Location Of Their Choice, 07/13/2016 16:01:39 07/14/19 17 07/13/2016 CMP, serum or plasm a Ag ratio 1.7 Not Available [facility] ([facility]ized [facility] Ordering - All Locations) Patient Can Go To The Location Of Their Choice, 07/13/2016 16:01:39 07/14/19 17 07/13/2016 CMP, serum or plasm a AST 15 U/L (0-38) Not Available [facility] ([facility]ized [facility] Ordering - All Locations) Patient Can Go To The Location Of Their Choice, 07/13/2016 16:01:39 07/14/19 17 07/13/2016 CMP, serum or plasm a alk phos 59 U/L (40-12 9) Not Available [facility] ([facility]ized [facility] Ordering - All Locations) Patient Can Go To The Location Of Their Choice, 07/13/2016 16:01:39 07/14/19 17 07/13/2016 CMP, serum or plasm a ALT 10 U/L (0-41) Not Available [facility] ([facility]ized Electronic Ordering - All Locations) Patient Can Go To The Location Of Their Choice, 07/13/2016 16:01:39 07/14/19 17 07/13/2016 CMP, serum or plasm a est GFR non 130 mL/mi n/1.7 3_M2 The CKD-E PI creat inine equat ion has not been valid ated in child macario (<18 years ), pregn ant women , in some racia l or ethni c subgr oups other than Cauca sians and Afric an Ameri cans. Not Available [facility] (Centralized Electronic Ordering - All Locations) Patient Can Go To The Location Of Their Choice, 07/13/2016 16:01:39 07/14/19 17 07/13/2016 CMP, serum or plasm a est GFR 151 mL/mi n/1.7 3_M2 The CKD-E PI creat inine equat ion has not been valid ated in child macario (<18 years ), pregn ant women , in some racia l or ethni c subgr oups other than Cauca sians and Afric an Ameri cans. Not Available [facility] (Centralized Electronic Ordering - All Locations) Patient Can Go To The Location Of Their Choice, 07/13/2016 16:01:39 07/14/19 17 07/13/2016 lipas e, serum or plasm a lipase 39 U/L (13-60 ) Not Available [facility] (Centralized Electronic Ordering - All Locations) Patient Can Go To The Location Of Their Choice, 07/13/2016 16:01:40 07/14/19 17 07/13/2016 magne sium, serum or plasm a magnesium 1.8 mEq/L (1.3-1 .9) Not Available [facility] (Centralized Electronic Ordering - All Locations) Patient Can Go To The Location Of Their Choice, 07/13/2016 16:01:41 07/14/19 17 07/13/2016 preal bumin , serum prealbumin 29.5 mg/dL (20-40 ) Not Available [facility] ([facility]ized Electronic Ordering - All Locations) Patient Can Go To The Location Of Their Choice, 07/13/2016 16:01:42 07/14/19 17 07/13/2016 RPR (rapi d plasm a reagi n), titer , serum syphilis screen by deng NONREA CTIVE Not Available [facility] ([facility]ized Electronic Ordering - All Locations) Patient Can Go To The Location Of Their Choice, 07/13/2016 16:45:43 07/14/19 17 07/13/2016 RPR (rapi d plasm a reagi n), titer , serum RPR titer result NOT INDICA LAVONNE Not Available [facility] (Centralized Electronic Ordering - All Locations) Patient Can Go To The Location Of Their Choice, 07/13/2016 16:45:43 07/14/19 17 07/13/2016 RPR (rapi d plasm a reagi n), titer , serum tppa result NOT INDICA LAVONNE Not Available [facility] (Centralized Electronic Ordering - All Locations) Patient Can Go To The Location Of Their Choice, 07/13/2016 16:45:43 07/14/19 17 07/13/2016 RPR (rapi [...] suspi cion is high. Not Available [facility] (Centralized Electronic Ordering - All Locations) Patient Can Go To The Location Of Their Choice, 07/13/2016 16:45:43 07/14/19 17 07/13/2016 HBsAg (hepa titis B surfa ce Ag), serum hep. B surf. Ag NEGAT LUZMARIA REFER ENCE RANGE : NEGAT LUZMARIA Not Available [facility] (Centralized Electronic Ordering - All Locations) Patient Can Go To The Location Of Their Choice, [id number] 07/13/2016 16:45:47 07/14/19 17 07/13/2016 hepat itis B surfa ce Ab, quali tativ e, serum anti-hbs NEGAT LUZMARIA INDIC ATES LACK OF PRIOR EXPOS URE. Not Available [facility] (Centralized Electronic Ordering - All Locations) Patient Can Go To The Location Of Their Choice, [id number] 07/13/2016 17:05:40 07/14/19 17 07/14/2016 tissu e trans gluta tiffany e iga Ab, serum ttg result 0.59 U/mL (<15.0 1) Refer ence Range : less than or equal to 15 U/mL (nega tive) Effec tive Janua ry 2016 the refer ence range for this assay has mon ed from less than 4 U/mL to less than or equal to 15 U/mL. Not Available [facility] (Centralized Electronic Ordering - All Locations) Patient Can Go To The Location Of Their Choice, [id number] 07/14/2016 10:57:06 07/14/19 17 07/14/2016 HIV 1+2 [...] THIS TEST RESUL T. Not Available [facility] (Centralized Electronic Ordering - All Locations) Patient Can Go To The Location Of Their Choice, 07/14/2016 13:26:09 07/14/19 17 07/14/2016 HIV 1-2 Ab diffe renti ation result for HIV 1 Ab diff Posit luzmaria. Prese nce of antib crispin to HIV 1 CONFI RMED in this speci men. Resul t repor lavonne to [place] DPH. Not Available [facility] (Centralized Electronic Ordering - All Locations) Patient Can Go To The Location Of Their Choice, 07/14/2016 14:18:11 07/14/19 17 07/14/2016 HIV 1-2 Ab diffe renti ation result for HIV 2 Ab diff Negati ve. Presen ce of antibo dy to HIV 2 NOT confir med in this specim en. Not Available [facility] (Centralized Electronic Ordering - All Locations) Patient Can Go To The Location Of Their Choice, 07/14/2016 14:18:11 07/14/19 17 07/14/2016 hepat itis C virus Ab, serum anti-hepatit is C NEGAT LUZMARIA REFER ENCE RANGE : NEGAT LUZMARIA Not Available [facility] (Centralized Electronic Ordering - All Locations) Patient Can Go To The Location Of Their Choice, 07/14/2016 16:53:02 07/14/19 17 07/15/2016 iga, quant itati ve, serum IgA subclass 1 251 Refer ence range : 50 to 314 Unit: mg/dL Not Available [facility] (Centralized Electronic Ordering - All Locations) Patient Can Go To The Location Of Their Choice, 07/15/2016 14:59:18 07/14/19 17 07/15/2016 iga, quant itati ve, serum IgA subclass 2 43.6 Refer ence range : 9.7 to 156.0 Unit: mg/dL Not Available [facility] (Centralized Electronic Ordering - All Locations) Patient Can Go To The Location Of Their Choice, 07/15/2016 14:59:18 07/14/19 17 07/15/2016 iga, quant itati ve, serum total IgA 296 Refer ence range : 61 to 356 Unit: mg/dL Test Perfo rmed by: [facility], [address], [place] [address] Labor atory Direc tor: Jerry parker III, M.D. Not Available [facility] (Centralized Electronic Ordering - All Locations) Patient Can Go To The Location Of Their Choice, 07/15/2016 14:59:18 07/14/19 17 07/20/2016 carot annie, serum carotene 11 Refer ence range : 3 to 91 Unit: ug/dL (NOTE ) Test Perfo rmed by: [facility] [address] [facility] [place] [address] Not Available [facility] (Centralized Electronic Ordering - All Locations) Patient Can Go To The Location Of Their Choice, 07/20/2016 08:18:15 07/19/19 17 07/19/2016 HIV (1+2) Abevelin rn blot, serum result 4TH gen HIV Ab-Ag REPEA TEDLY REACT LUZMARIA BY MARIANA COURTNEY DENG. PLEAS E SEE CONFI RMATO RY TEST RESUL TS. REFER ENCE RANGE : NEGAT LUZMARIA ADDIT IONAL NOTE: WRITT EN PATIE NT AUTHO RIZAT ION IS REQUI RED FOR EACH SEPAR ATE RELEA SE OF THIS TEST RESUL T. Not Available [facility] (Centralized Electronic Ordering - All Locations) Patient Can Go To The Location Of Their Choice, [id number] 07/19/2016 12:19:00 07/19/19 17 07/19/2016 HIV (1+2) Ab scree n, serum result for HIV 1 Ab diff Posit luzmaria. Prese nce of antib crispin to HIV 1 CONFI RMED in this speci men. Resul t repor lavonne to [place] DPH. Not Available [facility] (Centralized Electronic Ordering - All Locations) Patient Can Go To The Location Of Their Choice, 07/19/2016 13:21:19 07/19/19 17 07/19/2016 HIV (1+2) Ab scree n, serum result for HIV 2 Ab diff Negati ve. Presen ce of antibo dy to HIV 2 NOT confir med in this specim en. Not Available [facility] (Centralized Electronic Ordering - All Locations) Patient Can Go To The Location Of Their Choice, 07/19/2016 13:21:19 08/04/19 17 07/13/2016 elect walter de anda am No observ ation record ed. [facility] Scheduling) [address] [place], [address], 08/10/2016 10:16:27 Result Notes None recorded. Problems Name Problem SNOMED Code Status Onset Date Resolution Date Notes Provider Name and Address Organization Details Recorded Time Joint pain in ankle and foot Completed 01/02/2013 Klaudia patterson [place] - [facility] 3 08:46:57 Cellulit is 760595013 Completed 200801/02/2013 Klaudia patterson [place] [facility] 3 08:46:57 Pain of joint of wrist 680594104 Completed 01/02/2013 Klaudia patterson [place] [facility] 3 08:46:57 Viral disease 42138051 Completed 200801/02/2013 Klaudia patterson [facility] 3 08:46:57 Attentio n deficit hyperact ivity disorder , combined type 87456781 Active Carito Serna MD [address] [place] [address], [place], [address], [facility] 5 13:02:27 Acute pharyngi tis 848371773 Completed 200801/02/2013 Klaudia patterson [place] [facility] 3 08:46:57 Streptoc occal sore throat 69958381 Completed 01/02/2013 Klaudia patterson [facility] 3 08:46:57 Pain in limb 10252793 Completed 01/02/2013 Klaudia patterson [facility] 3 08:46:57 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 82700519 Completed 200801/02/2013 Klaudia patterson [place] [facility] 3 08:46:57 Sprain of ankle 69208875 Completed 01/02/2013 Klaudiavee patterson [facility] 3 08:46:57 Disorder of pulmonar y circulat ion 38710393 Completed 200807/24/2013 Carito Serna MD [address] [place] [address], [place], [address], [facility] 4 16:14:28 Pain of joint of ankle 596120741 Active Carito Serna MD [address] [place] [address], [place], [address], [facility] 4 15:15:00 Injury of ankle 180435632 Active has extra bone in foot- os-trigon um- to have surgery in [place]- Nikki Wu formerly [facility] 3 14:25:18 Acute pharyngi tis 470298285 Completed 01/29/2013 Klaudia Rutledge formerly [facility] 3 14:25:18 Otitis externa 3273176 Completed 02/11/2015 Carito Serna MD [address] [place] [address], [place], [address], [facility] 5 07:55:14 Dysuria 74132790 Active Carito Serna MD [address] [place], [place] [address], [address], [facility] 3 17:20:16 Urinary tract infectio us disease 76912720 Active Carito Serna MD [address] [place] [address] [place], 3, [facility] 3 09:40:56 Dizzines s 005224522 Completed 07/24/2013 Carito Serna MD [address] [place] [address] [place], 3, [facility] 4 16:14:28 Muscle strain 83224436 Completed 07/24/2013 Carito Serna MD [address] [place], [place] [address], 3, [facility] 4 16:14:28 Chest pain 77546470 Completed 07/24/2013 Carito Serna MD [address] [place], [place] [address], [address], [facility] 4 16:14:28 Pain of hip region 73579958 Active Carito Serna MD [address] [place], [place] [address], [address], [facility] 4 21:30:01 Anxiety 11867031 Active Carito Serna MD [address] [place], [place] [address], 3, [facility] 4 18:09:45 Depressi ve disorder 85385143 Active Carito Serna MD [address] [place] [address], [place], [address], [facility] 5 21:43:09 Acute pharyngi tis 639573841 Completed 02/11/2015 Carito Serna MD [address] [place] [address], [place], [address], [facility] 5 07:55:14 Upper respirat ory infectio n 31482846 Completed 02/11/2015 Carito Serna MD [address] [place] [address], [place], [address], [facility] 5 07:55:14 Viral syndrome 796806156 Completed 02/11/2015 Carito Serna MD [address] [place], [place] [address], 3, [facility] 5 07:55:14 Increase d body mass index 43817909 Active Carito Serna MD [address] [place], [place] [address], [address], [facility] 5 21:43:09 Sinusiti s 05549721 Active Carito Serna MD [address] [place] [address], [place], [address], [facility] 5 10:00:11 Cellulit is of pinna 112496683 Active Carito Serna MD [address] [place], [place] [address], [address], [facility] 5 21:43:09 Secondar y erectile dysfunct ion 978154484 Active Carito Serna MD [address] [place], [place] [address] [place], [address], [facility] 5 21:43:09 Eating disorder 63225521 Active 2016 Carito Serna MD [address] [place], [place] [address], 3, [facility] 7 12:15:44 Candidia sis of mouth 34198594 Active 2016 Carito Serna MD [address] [facility], [place], [address], [facility] 7 12:20:05 Eczema 96868578 Active 2016 Carito Serna MD [address] [place] [address], [place], [place], 3, [facility] 7 16:44:28 Human immunode ficiency virus infectio n 89984086 Active 2016 diagnosed 06/2016 Carito Serna MD [address] [place] [address], [place], [place], 3, [facility] 7 14:48:24 Problem Notes None recorded. Procedures Surgical History Date Name Laterality Status Provider Name and Address Organization Details Recorded Time 3 Orthopaedic completed Tosin Lutz R.N. [facility] 12/25/2013 07:40:12 Imaging Results None recorded. Procedure Notes None recorded. Medical Equipment None [...] Details Last Updated DateTime 07/06/2016 179.71 cm 05544.69 g 22.2 kg/m2 Shell Holman M.A. [facility] 07/06/2016 11:03:13 Date Recorded Body height Body weight Body mass index (BMI) Systolic blood pressure Diastolic blood pressure Provider Name and Address Organization Details Last Updated DateTime 07/11/2016 179.71 cm 56085.15 g 23 kg/m2 110 mm[Hg] 60 mm[Hg] Irma Mahajan [facility] 7 15:12:59 Date Recorded Body height Body weight Body mass index (BMI) Systolic blood pressure Diastolic blood pressure Provider Name and Address Organization Details Last Updated DateTime 09/10/2015 179.71 cm 71750.26 g 24.7 kg/m2 114 mm[Hg] 70 mm[Hg] Addie Lara [facility] 6 13:23:12 Social History Question Answer Notes LastModified by Organizat ion Details LastModified Time Tobacco Smoking Status Never Smoker Shell Holman M.A. yesenia, [facility] 08/25/2011 16:09:38 Hard Of Hearing Or Deaf In One Or Both Ears? No Information not available 09/08/2015 Legally Blind In One Or Both Eyes? No Information not available 09/08/2015 Parent's Marital Status Information not available 02/26/2011 Home Situation Mother -- Information not available 02/26/2011 Siblings Cary Parker (F) 07/14/2002 Catalina Larios(F) 06/09/1988 [place] Information not available 01/29/2013 Parent's Name Lily Larios Information not available 02/26/2011 Parent's Name Reji Parker Information not available 02/26/2011 DSS/DCF Custody No [facility] Information not available 01/29/2013 Are You Passively [...] PROBLEMS Y RHEUMATOLOGIC PROBLEMS N HOSPITALIZATIONS N SENIOR FUNCTIONAL ANALYST PROBLEMS N ENT PROBLEMS/OTITIS MEDIA/ CHRONIC N RENAL PROBLEMS Y HEMATOLOGIC /ONCOLOGIC PROBLEMS N ACCIDENTS INJURIES Y OTHER N NEUROLOGIC/ SEIZURES OR CONVULSIONS N ADHD Y ENDOCRINE PROBLEMS/DIABETES N HEADACHES/MIGRAINES/DIZZINESS N GI PROBLEMS/CONSTIPATION N CONGENITAL AND GENETIC PROBLEMS N INFECTIOUS DISEASE PROBLEMS N ORTHOPEDIC PROBLEMS Y CHICKEN POX / VARICELLA HISTORY or POSIT LUZMARIA TITER Y PUMONARY PROBLEMS/ ASTHMA N PSYCH PROBLEMS Y Immunizations Vaccine Type Date Status Note Provider Nam e and Address Organization Details Recorded Time meningococcal MCV4P 1 completed Not Available [facility] 05/11/2019 02:33:25 Tdap 1 completed Not Available [facility] 05/11/2019 02:33:42 Influenza, split virus, trivalent, PF 1 completed Not Available [facility] 05/11/2019 02:35:17 Hib, unspecified formulation 9 completed Not Available [facility] 02/26/2011 03:18:43 IPV 0 completed Not Available [facility] 02/26/2011 03:18:43 DTaP, unspecified formulation 9 completed Not Available [facility] 02/26/2011 03:18:43 Hep B, unspecified formulation 9 completed Not Available [facility] 02/26/2011 03:19:20 DTaP, unspecified formulation 9 completed Not Available [facility] 02/26/2011 03:18:43 Hep B, unspecified formulation 9 completed Not Available [facility] 02/26/2011 03:18:43 DTaP, unspecified formulation 9 completed Not Available [facility] 02/26/2011 03:18:43 Hep B, unspecified formulation 9 completed Not Available [facility] 02/26/2011 03:19:20 Hib, unspecified formulation 9 completed Not Available [facility] 02/26/2011 03:18:43 IPV 9 completed Not Available [facility] 02/26/2011 03:18:43 DTaP, unspecified formulation 0 completed Not Available [facility] 02/26/2011 03:18:43 MMR 0 completed Not Available [facility] 02/26/2011 03:18:43 Hib, unspecified formulation 9 completed Not Available [facility] 02/26/2011 03:19:20 Hib, unspecified formulation 0 completed Not Available [facility] 02/26/2011 03:18:43 pneumococcal conjugate PCV 7 1 completed Not Available [facility] 02/26/2011 03:18:43 IPV 3 completed Not Available [facility] 02/26/2011 03:18:43 DTaP, unspecified formulation 3 completed Not Available [facility] 02/26/2011 03:19:20 pneumococcal conjugate PCV 7 0 completed Not Available [facility] 02/26/2011 03:18:43 MMR 3 completed Not Available [facility] 02/26/2011 03:18:43 IPV 9 completed Not Available [facility] 02/26/2011 03:18:43 HPV, quadrivalent 2 completed Not Available [facility] 05/11/2019 02:34:00 HPV, quadrivalent 2 completed Not Available [facility] 05/11/2019 02:34:01 HPV, quadrivalent 3 completed Not Available [facility] 05/11/2019 02:34:03 Influenza, split virus, quadrivalent, PF 4 completed Not Available [facility] 05/11/2019 02:35:59 Hep A, ped/adol, 2 dose 5 completed Not Available [facility] 05/11/2019 02:34:34 meningococcal MCV4P 5 completed Not Available [facility] 05/11/2019 02:36:06 Influenza, split virus, quadrivalent, PF 5 completed Not Available [facility] 05/11/2019 02:36:20 Hep A, ped/adol, 2 dose 6 completed Not Available [facility] 05/11/2019 02:36:44 Influenza, split virus, quadrivalent, PF 7 completed Not Available [facility] 05/11/2019 02:37:42 Past Encounters Encounter ID Performer Location Encounter Start Date Encounter Closed Date Diagnosis/Indication Diagnosis SNOMED-CT Code Diagnosis ICD10 Code Diagnosis Note [id number] Juanjose Gardiner MD [facility] [address] [facility] [place] [address] 12/19/2007 08:39:02 01/01/2009 01:23:50 [id number] Bina Espinosa MD [facility] [address] [facility] [place] [address] 06/04/2008 11:24:11 06/04/2008 12:30:17 [id number] Aubrie Melissa MD [facility] [address] [facility] [place] [address] 10/06/2008 12:43:32 10/06/2008 13:29:42 [id number] Juanjose Gardiner MD [facility] [address] [facility] [place] [address] 01/14/2009 09:02:37 01/14/2009 09:39:58 [id number] Olivier Norris MD [facility] [address] [facility] [address] 05/12/2010 16:50:35 05/12/2010 17:11:28 [id number] Carito Serna MD [facility] [address] [place] [address] 08/19/2010 14:49:31 08/19/2010 17:35:49 [id number] Carito Serna MD [facility] [address] [place] [address] 09/15/2010 10:01:10 09/15/2010 10:41:34 [id number] Carito Serna MD [facility] [address] [facility] [place] [address] 01/26/2011 14:10:08 01/26/2011 15:18:57 [id number] Fransisco Ledezma MD [facility] [address] [place] [address] 02/04/2011 15:03:25 02/04/2011 16:38:11 [id number] Carito Serna MD [facility] [address] [address] 03/23/2011 14:07:36 03/23/2011 15:02:31 [id number] Car[facility] Serna MD [facility] [address] 06/01/2011 14:07:35 06/01/2011 15:24:13 [id number] Carito Serna MD [address] [address] 08/25/2011 15:59:48 08/25/2011 17:22:05 [id number] Fransisco Ledezma MD [address] [address] 12/27/2011 08:53:23 12/27/2011 09:37:31 [id number] Carito Serna MD [address] [address] 05/31/2012 08:58:17 05/31/2012 09:06:01 [id number] Carito Serna MD [address] [address] 08/29/2012 14:56:55 08/29/2012 16:52:58 [id number] No VERA, LAB RN, PhD [address] [address] 12/17/2012 16:31:11 12/17/2012 16:56:31 Acute pharyngitis 665513869 [id number] Klaudia Rutledge MD [address] [address] 01/02/2013 08:36:31 01/02/2013 08:59:08 Pain of joint of ankle 380422592 Injury of ankle 733155768 [id number] Carito Serna MD [address] [address] 01/10/2013 09:07:23 01/10/2013 12:01:40 Acute pharyngitis 188591178 [id number] Klaudia Rutledge MD [address] [address] 01/29/2013 14:10:51 01/29/2013 14:47:52 Otitis externa 9089967 ear wick placed and needs to be removed [id number] Carito Serna MD [address] [address] 03/29/2013 16:14:09 03/29/2013 17:16:47 Dysuria 75250040 [id number] Carito Serna MD [address] [address] 04/03/2013 16:10:50 04/03/2013 17:09:33 Attention deficit hyperactivity disorder, combined type 81236920 Dysuria 53815985 Dizziness 379997908 [id number] Klaudia Rutledge MD [address] [address] 05/28/2013 08:42:30 05/28/2013 09:18:20 Muscle strain 08630230 Self inflicted injury 820766042 Cutting L arm- disc with mom and patient- stressed about multiple things- has seen crisis Chest pain 61849028 Like ly MS pain- disc mgmt [id number] Carito Serna MD [address] [address] 07/03/2013 14:10:39 07/03/2013 16:29:25 Pain of hip region 27375718 Attention deficit hyperactivity disorder, combined type 46241813 [id number] Carito Serna MD [address] [address] 08/29/2013 08:15:17 08/29/2013 13:17:08 Well child 306025983 Attention deficit hyperactivity disorder, combined type 88356655 Anxiety 52154974 Pain of hip region 44362633 [id number] Carito Serna MD [address] [address] 12/25/2013 16:19:51 12/26/2013 08:42:04 Attention deficit hyperactivity disorder, combined type 60223991 Anxiety 80299971 Depressive disorder 85509151 [id number] Carito Serna MD [address] [address] 01/17/2014 10:51:23 01/17/2014 12:43:38 Depressive disorder 09795266 Attention deficit hyperactivity disorder, combined type 19444063 Influenza vaccine needed 6200873978 106 [id number] Carito Serna MD [address] [address] 02/24/2014 14:17:13 02/24/2014 15:19:41 Depressive disorder 91099898 Attention deficit hyperactivity disorder, combined type 71209643 Pain of ankit int of ankle 307190421 [id number] Klaudia Rutledge MD [address] [address] 04/11/2014 10:55:28 04/11/2014 11:36:20 Acute pharyngitis 309235573 Upper resp iratory infection 07966248 Viral syndrome 920330587 [id number] Carito Serna MD [address] [address] 07/18/2014 10:46:15 07/18/2014 11:44:05 Acute pharyngitis 612565066 [id number] Carito Serna MD [address] [address] 09/10/2014 09:50:48 09/10/2014 15:03:19 Well child 043690732 Increased body mass index 51602153 Attention deficit hyperactivity disorder, combined type 98947189 Depressive disorder 13567893 [id number] Carito Serna MD [address] [address] 10/27/2014 09:00:56 10/27/2014 10:02:05 Acute pharyngitis 167811114 Sinusitis 26019723 [id number] Carito Serna MD [address] [address] 02/11/2015 15:16:13 02/11/2015 16:30:45 Depressive disorder 25778731 F32.9 Cellulitis of pinna 2322 96656 H60.12 Increased body mass index 02565768 Z68.41 Secondary erectile dysfunction 672809188 N52.8 Active or passive immunization 907577006 Z23 [id number] Carito Serna MD [address] [place] [address] 09/10/2015 13:11:56 09/10/2015 15:26:02 Well child 865642620 Z00.129 Active or passive immunization 314371944 Z23 Nasal congestion 9175417 0 R09.81 Attention deficit hyperactivity disorder, combined type 89113113 F90.2 Depressive disorder 3548 9007 F32.9 [id number] Carito Serna MD [address] [address] 01/21/2016 12:50:43 01/21/2016 13:28:29 Acute conjunctivitis 77643050 H10.31 Cellulitis 452985985 L03 .90 [id number] Carito Serna MD [address] [address] 07/06/2016 10:59:47 07/06/2016 12:36:13 Eating disorder 66075590 F50.9 Sexually t ransmitted infectious disease 3799261 A64 Candidiasis of mouth 797 56884 B37.0 Depressive disorder 3548 9007 F32.9 Anxiety 86026384 F41.9 Attention deficit hyperactivity disorder, combined type 95187721 F90.2 [id number] Carito Serna MD [address] [address] 07/11/2016 15:08:27 07/11/2016 16:49:05 Adult health examination 857427984 Z00.01 Administra tion of influenza vaccine 86054689 Z23 Eating disorder 52199045 F50.9 Candidiasis of mouth 797 45886 B37.0 Attention deficit hyperactivity disorder, combined type 04809657 F90.2 Sexually t ransmitted infectious disease 0760977 A64 Eczema 01155590 L30.9 [id number] Carito Serna MD [address] [address] 07/15/2016 16:10:50 07/15/2016 17:52:48 Human immunodeficiency virus infection 39141728 B20 Sexually t ransmitted infectious disease 0146294 A64 Eating disorder 44192837 F50.9 Health Concerns Section Related Observation LastModified by Organization Detai ls LastModified Time None Recorded Concern Status LastModified by Organization Details LastModified Time None Recorded Advance Directives Directive None Recorded Payers Insurance Date Sequence Insurance Name Policy Number Policy Ruelas Covered Member ID Ruelas Member ID Guarantor Name 12/06/2022 1 [facility] (MEDICAID HMO) [id number] Kelby Parker [id number] Julianna Ric 12/06/2022 1 [facility] HEALTH NET PLAN (MEDICAID HMO) [id number] Kelby Parker [id number] Julianna Henefer 12/06/2022 2 [place] [facility] Kelby Parker [id number] Julianna Ric 12/06/2022 1 [place] [facility] Kelby Parker [id number] Julianna Ric Notes Date Note Type Note [...] ill contacts. NO makeup. Carito Serna MD [address] [place] [address], [phone], [facility] 01/21/2016 13:20:44 07/06/2016 text/html [...] energynormal amount of energy; has job at [employer] - new since Feb 2016 behavioral historyalcohol: [...] realizes that his partner cares and wants intermediate relationship; Mom busy with work and caring [...] about 10 days ago. Carito Serna MD [address] [place] [address], [place], [phone], [facility] 07/06/2016 12:25:27 07/15/2016 text/html [...] hands with inc lotion. Carito Serna MD [address] [place] [address], [phone], [facility] 07/15/2016 17:55:49
--- OUTSIDE RECORDS SUMMARY | 2024-10-21 15:01 | XMS_ITS | Clinical Summary ---
Author Organization [facility] it[facility] Address [address] [place] [address] Care Team Providers Care Production Statistical Clerk Name Role Phone Unavailable Primary Care Provider Unavailabl e Social History Tobacco Use Types Packs/Day Years Used Date Smoking Tobacco: Never Assessed Sex and Gender Information Value Date Recorded Sex Assigned at Not on file Legal Sex Male 1:25 PM EST Gender Identity Not on file Sexual Orientation Not on file Plan of Treatment Health Maintenance Due Date Last Done Comments HPV Vaccines (1 - Male 3-dos e series) 2013 DTaP,Tdap,and Td Vaccines (1 - Tdap) 2017 Hepatitis B Vaccines (1 of 3 - 19+ 3-dose series) 2017 COVID-19 Vaccine ( - 2023-2 5 season) 2023 Influenza Vaccine (Season Ended) 2024 HIB Vaccines Aged Out No longer eligi ble based on patient's age to complete this topic Hepatitis A Vaccines Aged Out No long er eligible based on patient's age to complete this topic IPV Vaccines Aged Out No longer eligi ble based on patient's age to complete this topic MMR Vaccines Aged Out No longer eligi ble based on patient's age to complete this topic Meningococcal ACWY Vaccine Aged Out N o longer eligible based on patient's age to complete this topic Meningococcal B Vaccine Aged Out No l onger eligible based on patient's age to complete this topic Pneumococcal Vaccine: Pediat rics (0 to 5 Years) and At-Risk Patients (6 to 64 Years) Aged Out No longer eligible b ased on patient's age to complete this topic RSV Immunization Patients Un mir 20 months Aged Out No longer eligible b ased on patient's age to complete this topic Varicella Vaccines Aged Out No longer eligible based on patient's age to complete this topic Advance Directives Documents on File Type Date Recorded 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
--- OUTSIDE RECORDS SUMMARY | 2024-10-21 15:01 | XMS_ITS | Data Portability ---
Author Organization [place] - [facility], [facility] Address [address] [place] [address] Assessment Encounter Date Assessment Date Assessment LastModified [...] for a job, may relocate to [facility] since older daughter lives there, [...] necessary changes, wt check next week at [facility]; Issues with anal sex/douching of anus [...] DNA, PCR, unspecif ied specimen 2016 017 [employer] [facility] (Centralized Electronic Ordering - All Locations), Patient Can Go To The Location Of Their Choice, 7 10:28:18 HIV (1+2) Ab screen, serum 2016 017 [facility] - [facility] Locations), Patient Can Go To The Location Of Their Choice, 7 09:05:52 HIV (1+2) Ab, western blot, serum 2016 017 [facility] (Centralized [facility] Ordering - [...] Go To The Location Of Their Choice, [id number] 7 16:01:39 amylase + lipase, serum 2016 017 [facility] (Centralized Electronic Ordering - All Locations), Patient Can Go To The Location Of Their Choice, [id number] 7 09:05:52 prealbum in, serum 2016 017 CONNIE [facility] (Centralized Electronic Ordering - All Locations), Patient Can Go To The Location Of Their Choice, [id number] 7 16:01:42 urinalys is, dipstick 2016 017 yissel [facility], [address] [place] [address], [place], [address], 7 12:13:34 CT + NG DNA, PCR, urine 2015 016 [facility] (Centralized Electronic Ordering - All Locations), Patient Can Go To The Location Of Their Choice, [facility] 6 04:08:45 Referral pediatri c infectio us disease referral 2016 017 yissel Not available 7 08:27:02 Procedures None recorded . Surgeries None recorded . Imaging electroc ardiogra m 2016 017 [facility] (Outt Non-Invasive Cardiology Scheduling), [facility] [place], [address], 7 09:24:05 Medication Orders hydrocor tisone valerate [...] By Organization Details Last Modified Time 09/10/2015 [id number] patient health questionnaire modified for adolescents* DBA_[email or web address] [id number] Not available 04/09/2016 04:08:45 5210 program - 1 hour of exercise DBA_PATCH_20 [id number] Not available 04/09/2016 04:08:43 immunization: wh at you need to know DBA_PATCH_20 [id number] Not available 04/09/2016 04:08:43 Well Visit, 12 Years to Young Teen: Care Instructions DBA_PATCH_20 [id number] Not available 04/09/2016 04:08:43 07/11/2016 [id number] program - 5 fruits & veggies CONNIE [...] sment * PHQ-9 positi ve Not Available [facility] [address] [place] [address], [address], 07/11/2016 15:09:21 07/07/19 17 07/06/2016 urina lysis , dipst ick Leukocytes Negati ve Not Available [facility] [address] [place], [address], 07/06/2016 11:57:23 07/07/19 17 07/06/2016 urina lysis , dipst ick Nitrite negati ve Not Available [facility] [address] [place], [address], 07/06/2016 11:57:23 07/07/19 17 07/06/2016 urina lysis , dipst ick Protein Trace Not Available [facility] [address] [place], [address], 07/06/2016 11:57:23 07/07/19 17 07/06/2016 urina lysis , dipst ick pH 7.5 Not Available [facility] [address] [place] [address], [address], 07/06/2016 11:57:23 07/07/19 17 07/06/2016 urina lysis , dipst ick Blood Negati ve Not Available [facility] [address] [place] [address], [address], 07/06/2016 11:57:23 07/07/19 17 07/06/2016 urina lysis , dipst ick Ketone Negati ve Not Available [facility] [address] [place] [address], [address], 07/06/2016 11:57:23 07/07/19 17 07/06/2016 urina lysis , dipst ick Glucose Negati ve Not Available [facility] [address] [place] [address], [address], 07/06/2016 11:57:23 09/10/19 16 09/10/2015 patie nt healt h quest ionna fanta modif ied for adole scent s* PHQ-9 positi ve Not Available [facility] [address] [place] [address], [address], 09/10/2015 13:15:36 09/10/19 16 09/11/2015 CT + NG DNA, PCR, urine urine chlamydia amp probe NEGAT LUZMARIA No Chlam ydia Trach omati s RNA detec lavonne in this patie nt's sampl e (REFE RENCE RANGE /NORM AL VALUE : NOT DETEC LAVONNE) Not Available [facility] (Centralized Electronic Ordering - All Locations) Patient Can Go To The Location Of Their Choice, [id number] 09/11/2015 14:27:11 09/10/19 16 09/11/2015 CT + [...] neede d. Conta ct phone numbe r [phone]. Thera peuti c failu re or succe ss canno t be deter mined with the Aptim a Combo 2 assay since nucle ic acid may persi st follo wing appro priat e antim icrob ial thera py. The Cente rs for Disea se Contr ol and Preve ntion ([facility]) recom mends confi rmato ry retes ting using cultu re or a diffe rent nucle ic acid ampli ficat ion test when posit luzmaria resul ts occur , if indic ated. Testi ng perfo rmed or repor lavonne by [facility] Refer ence Labor cyndii es, a Servi ce of [facility], [address], [place] [address] CLIA [id number] Kim bruce MD, PhD, Medic al [facility] Not Available [facility] (Centralized Electronic Ordering - [...] Go To The Location Of Their Choice, [id number] 07/07/2016 02:08:17 07/07/1907/07/2016 urina lysis , compl ete hyaline cast 4 lpf (0-2) high Not Available [facility] (Centralized Electronic Ordering - All Locations) Patient Can Go To The Location Of Their Choice, [id number] 07/07/2016 02:08:17 07/07/1907/08/2016 CT + NG DNA, PCR, urine urine chlamydia amp probe NEGAT LUZMARIA No Chlam ydia Trach omati s RNA detec lavonne in this patie nt's sampl e (REFE RENCE RANGE /NORM AL VALUE : NOT DETEC LAVONNE) Not Available [facility] (Centralized Electronic Ordering - All Locations) Patient Can Go To The Location Of Their Choice, [id number] 07/08/2016 07:05:47 07/07/1907/08/2016 CT + NG DNA, [...] se Contr ol and Preve ntion ([facility]) recom mends confi rmato ry retes ting [...] Go To The Location Of Their Choice, [id number] 07/13/2016 16:00:07 07/14/19 17 07/13/2016 CBC w/ [...] Go To The Location Of Their Choice, [id number] 07/13/2016 16:00:07 07/14/19 17 07/13/2016 CBC w/ [...] Go To The Location Of Their Choice, [id number] 07/13/2016 16:45:47 07/14/19 17 07/13/2016 hepat itis B surfa ce Ab, quali tativ e, serum anti-hbs NEGAT LUZMARIA INDIC ATES LACK OF PRIOR EXPOS URE. Not Available [facility] (Centralized Electronic Ordering - All Locations) Patient Can Go To The Location Of Their Choice, [id number] 07/13/2016 17:05:40 07/14/19 17 07/14/2016 tissu e [...] Go To The Location Of Their Choice, [id number] 07/14/2016 10:57:06 07/14/19 17 07/14/2016 HIV 1+2 [...] 356 Unit: mg/dL Test Perfo rmed by: [facility], [address], [place] [address] Labor atory Direc tor: Jerry parker III, M.D. Not Available [facility] (Centralized Electronic Ordering - All Locations) Patient Can Go To The Location Of Their Choice, 07/15/2016 14:59:18 07/14/19 17 07/20/2016 carot annie, serum carotene 11 Refer ence range : 3 to 91 Unit: ug/dL (NOTE ) Test Perfo rmed by: [facility] [facility] [address] [facility] [place] [address] Not Available [facility] (Centralized Electronic Ordering - [...] Go To The Location Of Their Choice, [id number] 07/19/2016 12:19:00 07/19/19 17 07/19/2016 HIV (1+2) [...] anda am No observ ation record [facility]. [facility] (Outt Non-Invasive Cardiology Scheduling) [address] [place], [address], 08/10/2016 10:16:27 Result Notes None recorded. Problems Name Problem SNOMED Code Status Onset Date Resolution Date Notes Provider Name and Address Organization Details Recorded Time Joint pain in ankle and foot Completed 01/02/2013 Klaudia patterson [place] - [facility] 3 08:46:57 Cellulit is 108735794 Completed 200801/02/2013 Klaudia patterson [place] [facility] 3 08:46:57 Pain of joint of wrist 769723455 Completed 01/02/2013 Klaudia patterson [place] [facility] 3 08:46:57 Viral disease 70201637 Completed 200801/02/2013 [facility]ud[facility] 3 08:46:57 Attentio n deficit hyperact ivity disorder , combined type 73831542 Active Carito Serna MD [address] [place] [address], [place], [address], [facility] 5 13:02:27 Acute pharyngi tis 368505025 Completed 200801/02/2013 Klaudia patterson [place] [facility] 3 08:46:57 Streptoc occal sore throat 94372271 Completed 01/02/2013 Klaudia patterson [facility] 3 08:46:57 Pain in limb 96501390 Completed 01/02/2013 K[facility]ud[facility] patterson [facility] 3 08:46:57 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 44699082 Completed 200801/02/2013 Klaudia patterson [place] [facility] 3 08:46:57 Sprain of ankle 59189183 Completed 01/02/2013 Klaudiavee patterson [facility] 3 08:46:57 Disorder of pulmonar y circulat ion 72450477 Completed 200807/24/2013 Carito Serna MD [address] [place] [address], [place], [address], [facility] 4 16:14:28 Pain of joint of ankle 121556492 Active Carito Serna MD [address] [place] [address], [place], [address], [facility] 4 15:15:00 Injury of ankle 652838902 Active has extra bone in foot- os-trigon um- to have surgery in [place]- Nikki Wu [facility] 3 14:25:18 Acute pharyngi tis 991178962 Completed 01/29/2013 Klaudia Rutledge [facility] 3 14:25:18 Otitis externa 7717896 Completed 02/11/2015 aCrito Serna MD [address] [place] [address], [place], [address], [facility] 5 07:55:14 Dysuria 44437548 Active Carito Serna MD [address] [place], [place] [address], [address], [facility] 3 17:20:16 Urinary tract infectio us disease 13853663 Active Carito Serna MD [address] [place] [address] [place], 3, [facility] 3 09:40:56 Dizzines s 472829154 Completed 07/24/2013 Carito Serna MD [address] [place] [address] [place], 3, [facility] 4 16:14:28 Muscle strain 93738495 Completed 07/24/2013 Carito Serna MD [address] [place], [place] [address], 3, [facility] 4 16:14:28 Chest pain 49571855 Completed 07/24/2013 Carito Serna MD [address] [place], [place] [address], [address], [facility] 4 16:14:28 Pain of hip region 15853958 Active Carito Serna MD [address] [place], [place] [address], [address], [facility] 4 21:30:01 Anxiety 45975834 Active Carito Serna MD [address] [place], [place] [address], 3, [facility] 4 18:09:45 Depressi ve disorder 57430787 Active Carito Serna MD [address] [place] [address], [place], [address], [facility] 5 21:43:09 Acute pharyngi tis 036007080 Completed 02/11/2015 Carito Serna MD [address] [place] [address], [place], [address], [facility] 5 07:55:14 Upper respirat ory infectio n 35484403 Completed 02/11/2015 Carito Serna MD [address] [place] [address], [place], [address], [facility] 5 07:55:14 Viral syndrome 372797866 Completed 02/11/2015 Carito Serna MD [address] [place], [place] [address], 3, [facility] 5 07:55:14 Increase d body mass index 52090326 Active Carito Serna MD [address] [place], [place] [address], [address], [facility] 5 21:43:09 Sinusiti s 36313722 Active Carito Serna MD [address] [place] [address], [place], [address], [facility] 5 10:00:11 Cellulit is of pinna 970571496 Active Carito Serna MD [address] [place], [place] [address], [address], [facility] 5 21:43:09 Secondar y erectile dysfunct ion 415497980 Active Carito Serna MD [address] [place], [place] [address], [address], [facility] 5 21:43:09 Eating disorder 31868504 Active 2016 Carito Serna MD [address] [place], [place] [address] [place], 3, [facility] 7 12:15:44 Candidia sis of mouth 17998567 Active 2016 Carito Serna MD [address] [facility], [place], [address], [facility] 7 12:20:05 Eczema 77035309 Active 2016 Carito Serna MD [address] [place] [address], [place], [place], 3, [facility] 7 16:44:28 Human immunode ficiency virus infectio n 90462818 Active 2016 diagnosed 06/2016 Carito Serna MD [address] [place] [address], [place], [place], 3, [facility] 7 14:48:24 Problem Notes None recorded. Procedures Surgical History Date Name Laterality Status Provider Name and Address Organization Details Recorded Time 3 Orthopaedic completed Tosin Lutz R.N. [facility] 12/25/2013 07:40:12 Imaging Results None [...] Details Last Updated DateTime 07/06/2016 179.71 cm 99541.69 g 22.2 kg/m2 Shell Holman M.A. [facility] 07/06/2016 11:03:13 Date Recorded Body height Body weight Body mass index (BMI) Systolic blood pressure Diastolic blood pressure Provider Name and Address Organization Details Last Updated DateTime 07/11/2016 179.71 cm 57044.15 g 23 kg/m2 110 mm[Hg] 60 mm[Hg] Irma Mahajan [facility] 7 15:12:59 Date Recorded Body height Body weight Body mass index (BMI) Systolic blood pressure Diastolic blood pressure Provider Name and Address Organization Details Last Updated DateTime 09/10/2015 179.71 cm 91857.26 g 24.7 kg/m2 114 mm[Hg] 70 mm[Hg] Addie Lara [facility] 6 13:23:12 Social History Question Answer Notes LastModified by Organizat ion Details LastModified Time Tobacco Smoking Status Never Smoker Shell Holman M.A. 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 HAND PROBLEMS N ENT PROBLEMS/OTITIS MEDIA/ CHRONIC N [...] Time meningococcal MCV4P 1 completed Not Available [facility] 05/11/2019 02:33:25 Tdap 1 completed Not Available [facility] 05/11/2019 02:33:42 Influenza, split virus, trivalent, PF 1 completed Not Available [facility] 05/11/2019 02:35:17 Hib, unspecified formulation 9 completed Not Available [facility] 02/26/2011 03:18:43 IPV 0 completed Not Available [facility] 02/26/2011 03:18:43 DTaP, unspecified formulation 9 completed Not Available [facility] 02/26/2011 03:18:43 Hep B, unspecified formulation 9 completed Not Available [facility] 02/26/2011 03:19:20 DTaP, unspecified formulation 9 completed Not Available [facility] 02/26/2011 03:18:43 Hep B, unspecified formulation 9 completed Not Available [facility] 02/26/2011 03:18:43 DTaP, unspecified formulation 9 completed Not Available [facility] 02/26/2011 03:18:43 Hep B, unspecified formulation 9 completed Not Available [facility] 02/26/2011 03:19:20 Hib, unspecified formulation 9 completed Not Available [facility] 02/26/2011 03:18:43 IPV 9 completed Not Available [facility] 02/26/2011 03:18:43 DTaP, unspecified formulation 0 completed Not Available [facility] 02/26/2011 03:18:43 MMR 0 completed Not Available [facility] 02/26/2011 03:18:43 Hib, unspecified formulation 9 completed Not Available [facility] 02/26/2011 03:19:20 Hib, unspecified formulation 0 completed Not Available [facility] 02/26/2011 03:18:43 pneumococcal conjugate PCV 7 1 completed Not Available [facility] 02/26/2011 03:18:43 IPV 3 completed Not Available [facility] 02/26/2011 03:18:43 DTaP, unspecified formulation 3 completed Not Available [facility] 02/26/2011 03:19:20 pneumococcal conjugate PCV 7 0 completed Not Available [facility] 02/26/2011 03:18:43 MMR 3 completed Not Available [facility] 02/26/2011 03:18:43 IPV 9 completed Not Available [facility] 02/26/2011 03:18:43 HPV, quadrivalent 2 completed Not Available [facility] 05/11/2019 02:34:00 HPV, quadrivalent 2 completed Not Available [facility] 05/11/2019 02:34:01 HPV, quadrivalent 3 completed Not Available [facility] 05/11/2019 02:34:03 Influenza, split virus, quadrivalent, PF 4 completed Not Available [facility] 05/11/2019 02:35:59 Hep A, ped/adol, 2 dose 5 completed Not Available [facility] 05/11/2019 02:34:34 meningococcal MCV4P 5 completed Not Available [facility] 05/11/2019 02:36:06 Influenza, split virus, quadrivalent, PF 5 completed Not Available [facility] 05/11/2019 02:36:20 Hep A, ped/adol, 2 dose 6 completed Not Available [facility] 05/11/2019 02:36:44 Influenza, split virus, quadrivalent, PF 7 completed Not Available [facility] 05/11/2019 02:37:42 Past Encounters Encounter ID Performer Location Encounter Start Date Encounter Closed Date Diagnosis/Indication Diagnosis SNOMED-CT Code Diagnosis ICD10 Code Diagnosis Note [id number] Juanjose Gardiner MD [facility] [address] [facility] [place] [address] 12/19/2007 08:39:02 01/01/2009 01:23:50 [id number] Bina Espinosa MD [facility] [address] [facility] [place] [address] 06/04/2008 11:24:11 06/04/2008 12:30:17 [id number] Aubrie Melissa MD [facility] [address] [facility] [place] [address] 10/06/2008 12:43:32 10/06/2008 13:29:42 [id number] Juanjose Gardiner MD [facility] [address] [facility] [place] [address] 01/14/2009 09:02:37 01/14/2009 09:39:58 [id number] Olivier Norris MD [facility] [address] [facility] [place] [address] 05/12/2010 16:50:35 05/12/2010 17:11:28 [id number] Carito Serna MD [facility] [address] [place] [address] 08/19/2010 14:49:31 08/19/2010 17:35:49 [id number] Carito Serna MD [facility] [address] [place] [address] 09/15/2010 10:01:10 09/15/2010 10:41:34 [id number] Carito Serna MD [facility] [address] [facility] [place] [address] 01/26/2011 14:10:08 01/26/2011 15:18:57 [id number] Fransisco Ledezma MD [facility] [address] [place] [address] 02/04/2011 15:03:25 02/04/2011 16:38:11 [id number] Carito Serna MD [facility] [address] 03/23/2011 14:07:36 03/23/2011 15:02:31 [id number] Carito Serna MD [facility] [address] [address] 06/01/2011 14:07:35 06/01/2011 15:24:13 [id number] Carito Serna MD [address] [address] 08/25/2011 15:59:48 08/25/2011 17:22:05 [id number] Fransisco Ledezma MD [address] [address] 12/27/2011 08:53:23 12/27/2011 09:37:31 [id number] Carito Serna MD [address] [address] 05/31/2012 08:58:17 05/31/2012 09:06:01 [id number] Carito Serna MD [address] [address] 08/29/2012 14:56:55 08/29/2012 16:52:58 [id number] No VERA, VALUE ANALYSIS COORDINATOR, PhD [address] [address] 12/17/2012 16:31:11 12/17/2012 16:56:31 Acute pharyngitis [id number] Klaudia Rutledge MD [address] [address] 01/02/2013 08:36:31 01/02/2013 08:59:08 Pain of joint of ankle 624190132 Injury of ankle 482341686 [id number] Carito Serna MD [address] [address] 01/10/2013 09:07:23 01/10/2013 12:01:40 Acute pharyngitis 638278596 [id number] Klaudia Rutledge MD [address] [address] 01/29/2013 14:10:51 01/29/2013 14:47:52 Otitis externa 0998177 ear wick placed and needs to be removed [id number] Carito Serna MD [address] [address] 03/29/2013 16:14:09 03/29/2013 17:16:47 Dysuria 84275858 [id number] Carito Serna MD [address] [address] 04/03/2013 16:10:50 04/03/2013 17:09:33 Attention deficit hyperactivity disorder, combined type 86267797 Dysuria 71619191 Dizziness 652351199 [id number] Klaudia Rutledge MD [address] [address] 05/28/2013 08:42:30 05/28/2013 09:18:20 Muscle strain 43175017 Self inflicted injury 456290443 Cutting L arm- disc with mom and patient- stressed about multiple things- has seen crisis Chest pain 57993574 Like ly MS pain- disc mgmt [id number] Carito Serna MD [address] [address] 07/03/2013 14:10:39 07/03/2013 16:29:25 Pain of hip region 59726219 Attention deficit hyperactivity disorder, combined type 99810557 [id number] Carito Serna MD [address] [address] 08/29/2013 08:15:17 08/29/2013 13:17:08 Well child 279834336 Attention deficit hyperactivity disorder, combined type 43620604 Anxiety 04803348 Pain of hip region 20694422 [id number] Carito Serna MD [address] [address] 12/25/2013 16:19:51 12/26/2013 08:42:04 Attention deficit hyperactivity disorder, combined type 68022445 Anxiety 85597244 Depressive disorder 06532708 [id number] Carito Serna MD [address] [address] 01/17/2014 10:51:23 01/17/2014 12:43:38 Depressive disorder 90740256 Attention deficit hyperactivity disorder, combined type 15106595 Influenza vaccine needed 0718107122 106 [id number] Carito Seran MD [address] [address] 02/24/2014 14:17:13 02/24/2014 15:19:41 Depressive disorder 90621268 Attention deficit hyperactivity disorder, combined type 66760490 Pain of ankit int of ankle 574383522 [id number] Klaudia Rutledge MD [address] [address] 04/11/2014 10:55:28 04/11/2014 11:36:20 Acute pharyngitis 088016751 Upper resp iratory infection 49382010 Viral syndrome 900719658 [id number] Carito Serna MD [address] [address] 07/18/2014 10:46:15 07/18/2014 11:44:05 Acute pharyngitis 230222760 [id number] Carito Serna MD [address] [address] 09/10/2014 09:50:48 09/10/2014 15:03:19 Well child 629707737 Increased body mass index 86696156 Attention deficit hyperactivity disorder, combined type 12450464 Depressive disorder 58272181 [id number] Carito Serna MD [address] [address] 10/27/2014 09:00:56 10/27/2014 10:02:05 Acute pharyngitis 957120870 Sinusitis 95060627 [id number] Carito Serna MD [address] [address] 02/11/2015 15:16:13 02/11/2015 16:30:45 Depressive disorder 38288516 F32.9 Cellulitis of pinna 2322 04729 H60.12 Increased body mass index 46258873 Z68.41 Secondary erectile dysfunction 581688245 N52.8 Active or passive immunization 256727640 Z23 [id number] Carito Serna MD [address] [place] [address] 09/10/2015 13:11:56 09/10/2015 15:26:02 Well child 185617818 Z00.129 Active or passive immunization [id number] Z23 Nasal congestion [id number] 0 R09.81 Attention deficit hyperactivity disorder, combined type 53372481 F90.2 Depressive disorder 3548 9007 F32.9 [id number] Carito Serna MD [address] [address] 01/21/2016 12:50:43 01/21/2016 13:28:29 Acute conjunctivitis 86912465 H10.31 Cellulitis 698955383 L03 .90 [id number] Carito Serna MD [address] [address] 07/06/2016 10:59:47 07/06/2016 12:36:13 Eating disorder 63142640 F50.9 Sexually t ransmitted infectious disease 1899071 A64 Candidiasis of mouth 797 64142 B37.0 Depressive disorder 3548 9007 F32.9 Anxiety 50460388 F41.9 Attention deficit hyperactivity disorder, combined type 20318987 F90.2 [id number] Carito Serna MD [address] [address] 07/11/2016 15:08:27 07/11/2016 16:49:05 Adult health examination [id number] Z00.01 Administra tion of influenza vaccine 37558200 Z23 Eating disorder 96555141 F50.9 Candidiasis of mouth 797 40137 B37.0 Attention deficit hyperactivity disorder, combined type 40265071 F90.2 Sexually t ransmitted infectious disease 3525200 A64 Eczema 41853213 L30.9 [id number] Carito Serna MD [address] [address] 07/15/2016 16:10:50 07/15/2016 17:52:48 Human immunodeficiency virus infection 73549706 B20 Sexually t ransmitted infectious disease 9456273 A64 Eating disorder 00198702 F50.9 Health Concerns Section Related Observation LastModified by Organization Detai ls LastModified Time None Recorded Concern Status LastModified by Organization Details LastModified Time None Recorded Advance Directives Directive None Recorded Payers Insurance Date Sequence Insurance Name Policy Number Policy Ruelas Covered Member ID Ruelas Member ID Guarantor Name 12/06/2022 1 [facility] (MEDICAID HMO) [id number] Kelby Parker [id number] Julianna Ric 12/06/2022 1 [facility] (MEDICAID HMO) [id number] Kelby Parker [id number] Julianna Chauvin 12/06/2022 2 [place] [facility] Kelby Parker [id number] Julianna Ric 12/06/2022 1 [place] [facility] Kelby Parker [id number] Julianna Ric Notes Date Note Type Note [...] ill contacts. NO makeup. Carito Serna MD [address] [place] [address], [phone], [facility] 01/21/2016 13:20:44 07/06/2016 text/html [...] energynormal amount of energy; has job at [email or web address] - new since Feb 2016 behavioral historyalcohol: [...] realizes that his partner cares and wants senior care relationship; Mom busy with work and caring [...] about 10 days ago. Carito Serna MD [address] [place] [address], [place], [phone], [facility] 07/06/2016 12:25:27 07/15/2016 text/html [...] hands with inc lotion. Carito Serna MD [address] [place] [address], [phone], [facility] 07/15/2016 17:55:49
== END 2024-10-21 14:30 | disposition home or self-care (01) ==
LOC: HO.HHCX 14:29
PROVIDERS: PCP Student in an Organized Health Care Education/Training Program; Visit Provider Student in an Organized Health Care Education/Training Program
DX: M53.3 Sacrococcygeal disorders, not elsewhere classified (principal)
CPT/HCPCS: 72220

== ENCOUNTER → 2024-10-21 14:38 | Outpatient (BNV) | payer MEDICAID, SELFPAY | PROVIDERS: PCP Student in an Organized Health Care Education/Training Program; Visit Provider Radiology Diagnostic Radiology | DX: M53.3 Sacrococcygeal disorders, not elsewhere classified (principal) | CPT/HCPCS: 72220 ==

== ENCOUNTER 2024-10-23 11:43 | Outpatient (REF) | payer MEDICAID, SELFPAY ==
--- OUTSIDE RECORDS SUMMARY | 2024-10-23 12:29 | XMS_ITS | Data Portability ---
Author Organization [place] - [facility], [facility] Address [address] [place] [address] Assessment Encounter Date Assessment Date Assessment LastModified [...] looking for a job, may relocate to [facility] since older daughter lives there, asked pt [...] necessary changes, wt check next week at [facility]; Issues with anal sex/douching of anus [...] DNA, PCR, unspecif ied specimen 2016 017 [facility] (Centralized Electronic Ordering - All Locations), Patient Can Go To The Location Of Their Choice, 7 10:28:18 HIV (1+2) Ab screen, serum 2016 017 [facility] ([facility] Ordering - All Locations), Patient Can Go To The Location Of Their Choice, 7 09:05:52 HIV (1+2) Ab, western blot, serum 2016 017 [facility] (Centralized [facility] Ordering - All Locations), [...] Go To The Location Of Their Choice, [id number] 7 16:01:39 amylase + lipase, serum 2016 017 [facility] (Centralized Electronic Ordering - All Locations), Patient Can Go To The Location Of Their Choice, [id number] 7 09:05:52 prealbum in, serum 2016 017 CONNIE [facility] (Centralized Electronic Ordering - All Locations), Patient Can Go To The Location Of Their Choice, [id number] 7 16:01:42 urinalys is, dipstick 2016 017 yissel [facility], [address] [place] [address], [place], [address], 7 12:13:34 CT + NG DNA, PCR, urine 2015 016 DBA_[email or web address] [id number] [facility] (Centralized Electronic Ordering - All Locations), Patient Can Go To The Location Of Their Choice, [facility] [place] [place] 6 04:08:45 Referral pediatri c infectio us disease referral 2016 017 yissel Not available 7 08:27:02 Procedures None recorded . Surgeries None recorded . Imaging electroc ardiogra m 2016 017 [facility] (Outt Non-Invasive Cardiology Scheduling), [facility] [place], [address], 7 09:24:05 Medication Orders hydrocor tisone valerate [...] By Organization Details Last Modified Time 09/10/2015 071969 patient health questionnaire modified for adolescents* DBA_PATCH_20 [id number] Not available 04/09/2016 04:08:45 5210 program - 1 hour of exercise DBA_PATCH_20 [id number] Not available 04/09/2016 04:08:43 immunization: wh at you need to know DBA_PATCH_20 [id number] Not available 04/09/2016 04:08:43 Well Visit, 12 Years to Young Teen: Care Instructions Not available 04/09/2016 04:08:43 07/11/2016 [id number] program - 5 fruits & veggies CONNIE [...] sment * PHQ-9 positi ve Not Available [facility] [address] [place] [address], [address], 07/11/2016 15:09:21 07/07/19 17 07/06/2016 urina lysis , dipst ick Leukocytes Negati ve Not Available [facility] [address] [place], [address], 07/06/2016 11:57:23 07/07/19 17 07/06/2016 urina lysis , dipst ick Nitrite negati ve Not Available [facility] [address] [place], [address], 07/06/2016 11:57:23 07/07/19 17 07/06/2016 urina lysis , dipst ick Protein Trace Not Available [facility] [address] [place], [address], 07/06/2016 11:57:23 07/07/19 17 07/06/2016 urina lysis , dipst ick pH 7.5 Not Available [facility] [address] [place] [address], [address], 07/06/2016 11:57:23 07/07/19 17 07/06/2016 urina lysis , dipst ick Blood Negati ve Not Available [facility] [address] [place] [address], [address], 07/06/2016 11:57:23 07/07/19 17 07/06/2016 urina lysis , dipst ick Ketone Negati ve Not Available [facility] [address] [place] [address], [address], 07/06/2016 11:57:23 07/07/19 17 07/06/2016 urina lysis , dipst ick Glucose Negati ve Not Available [facility] [address] [place] [address], [address], 07/06/2016 11:57:23 09/10/19 16 09/10/2015 patie nt healt h quest ionna fanta modif ied for adole scent s* PHQ-9 positi ve Not Available [facility] [address] [place] [address], [address], 09/10/2015 13:15:36 09/10/19 16 09/11/2015 CT + NG DNA, PCR, urine urine chlamydia amp probe NEGAT LUZMARIA No Chlam ydia Trach omati s RNA detec lavonne in this patie nt's sampl e (REFE RENCE RANGE /NORM AL VALUE : NOT DETEC LAVONNE) Not Available [facility] (Centralized Electronic Ordering - All Locations) Patient Can Go To The Location Of Their Choice, [id number] 09/11/2015 14:27:11 09/10/19 16 09/11/2015 CT + [...] neede d. Conta ct phone numbe r [phone]. Thera peuti c failu re or succe [...] ng perfo rmed or repor lavonne by [facility] Labor cyndii es, [facility], [address], [place] [address] CLIA [id number] Kim bruce MD, PhD, Medic al [facility] Not Available [facility] (Centralized Electronic Ordering [...] Go To The Location Of Their Choice, [id number] 07/07/2016 02:08:17 07/07/1907/07/2016 urina lysis , compl ete hyaline cast 4 lpf (0-2) high Not Available [facility] (Centralized Electronic Ordering - All Locations) Patient Can Go To The Location Of Their Choice, [id number] 07/07/2016 02:08:17 07/07/1907/08/2016 CT + NG DNA, PCR, urine urine chlamydia amp probe NEGAT LUZMARIA No Chlam ydia Trach omati s RNA detec lavonne in this patie nt's sampl e (REFE RENCE RANGE /NORM AL VALUE : NOT DETEC LAVONNE) Not Available [facility] (Centralized Electronic Ordering - All Locations) Patient Can Go To The Location Of Their Choice, [id number] 07/08/2016 07:05:47 07/07/1907/08/2016 CT + NG DNA, [...] neede d. Conta ct phone dmitri r [phone]. Thera peuti c failu re or succe [...] acid ampli ficat ion test when posit luzmarai resul ts occur , if indic ated. [...] Go To The Location Of Their Choice, [id number] 07/13/2016 16:00:07 07/14/19 17 07/13/2016 CBC w/ [...] Go To The Location Of Their Choice, [id number] 07/13/2016 16:00:07 07/14/19 17 07/13/2016 CBC w/ [...] Go To The Location Of Their Choice, [id number] 07/13/2016 16:45:47 07/14/19 17 07/13/2016 hepat itis B surfa ce Ab, quali tativ e, serum anti-hbs NEGAT LUZMARIA INDIC ATES LACK OF PRIOR EXPOS URE. Not Available [facility] (Centralized Electronic Ordering - All Locations) Patient Can Go To The Location Of Their Choice, [id number] 07/13/2016 17:05:40 07/14/19 17 07/14/2016 tissu e [...] Go To The Location Of Their Choice, [id number] 07/14/2016 10:57:06 07/14/19 17 07/14/2016 HIV 1+2 [...] 356 Unit: mg/dL Test Perfo rmed by: [facility], [address], [place] [address] Labor atory Direc tor: Jerry parker III, M.D. Not Available [facility] (Centralized Electronic Ordering - All Locations) Patient Can Go To The Location Of Their Choice, 07/15/2016 14:59:18 07/14/19 17 07/20/2016 carot annie, serum carotene 11 Refer ence range : 3 to 91 Unit: ug/dL (NOTE ) Test Perfo rmed by: [facility] [place] [address] [facility] [place] [address] Not Available [facility] (Centralized Electronic Ordering - [...] Go To The Location Of Their Choice, [id number] 07/19/2016 12:19:00 07/19/19 17 07/19/2016 HIV (1+2) [...] anda am No observ ation record ed. [facility] (Outt Non-Invasive Cardiology Scheduling) [address] [place], [address], 08/10/2016 10:16:27 Result Notes None recorded. Problems Name Problem SNOMED Code Status Onset Date Resolution Date Notes Provider Name and Address Organization Details Recorded Time Joint pain in ankle and foot Completed 01/02/2013 Klaudia patterson [place] - [facility] 3 08:46:57 Cellulit is 845146960 Completed 200801/02/2013 Klaudia patterson [place] [facility] 3 08:46:57 Pain of joint of wrist 041798587 Completed 01/02/2013 Klaudia patterson [place] [facility] 3 08:46:57 Viral disease 38828621 Completed 200801/02/2013 Klaudia patterson [facility] 3 08:46:57 Attentio n deficit hyperact ivity disorder , combined type 61305324 Active Carito Serna MD [address] [place] [address], [place], [address], [facility] 5 13:02:27 Acute pharyngi tis 471050605 Completed 200801/02/2013 Klaudia patterson [place] [facility] 3 08:46:57 Streptoc occal sore throat 58414566 Completed 01/02/2013 Klaudia patterson [facility] 3 08:46:57 Pain in limb 84685532 Completed 01/02/2013 Klaudia patterson [facility] 3 08:46:57 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 23468498 Completed 200801/02/2013 Klaudia patterson [place] [facility] 3 08:46:57 Sprain of ankle 31281077 Completed 01/02/2013 Klaudiavee patterson [facility] 3 08:46:57 Disorder of pulmonar y circulat ion 61377257 Completed 200807/24/2013 Carito Serna MD [address] [place] [address], [place], [address], [facility] 4 16:14:28 Pain of joint of ankle 658552795 Active Carito Serna MD [address] [place] [address], [place], [address], [facility] 4 15:15:00 Injury of ankle 784513704 Active has extra bone in foot- os-trigon um- to have surgery in [place]- Nikki Wu [facility] 3 14:25:18 Acute pharyngi tis 834374310 Completed 01/29/2013 Klaudia Rutledge [facility] 3 14:25:18 Otitis externa 3516284 Completed 02/11/2015 Carito Serna MD [address] [place] [address], [place], [address], [facility] 5 07:55:14 Dysuria 43616055 Active Carito Serna MD [address] [place], [place] [address], [address], [facility] 3 17:20:16 Urinary tract infectio us disease 07194603 Active Carito Serna MD [address] [place] [address] [place], 3, [facility] 3 09:40:56 Dizzines s 151324367 Completed 07/24/2013 Carito Serna MD [address] [place] [address] [place], 3, [facility] 4 16:14:28 Muscle strain 83320360 Completed 07/24/2013 Carito Serna MD [address] [place], [place] [address], 3, [facility] 4 16:14:28 Chest pain 98828802 Completed 07/24/2013 Carito Serna MD [address] [place], [place] [address], [address], [facility] 4 16:14:28 Pain of hip region 35943409 Active Carito Serna MD [address] [place], [place] [address], [address], [facility] 4 21:30:01 Anxiety 91611831 Active Carito Serna MD [address] [place], [place] [address], 3, [facility] 4 18:09:45 Depressi ve disorder 14092951 Active Carito Serna MD [address] [place] [address], [place], [address], [facility] 5 21:43:09 Acute pharyngi tis 868234689 Completed 02/11/2015 Carito Serna MD [address] [place] [address], [place], [address], [facility] 5 07:55:14 Upper respirat ory infectio n 41743457 Completed 02/11/2015 Carito Serna MD [address] [place] [address], [place], [address], [facility] 5 07:55:14 Viral syndrome 685563674 Completed 02/11/2015 Carito Serna MD [address] [place], [place] [address], 3, [facility] 5 07:55:14 Increase d body mass index 11864751 Active Carito Serna MD [address] [place], [place] [address], [address], [facility] 5 21:43:09 Sinusiti s 58048598 Active Carito Serna MD [address] [place] [address], [place], [address], [facility] 5 10:00:11 Cellulit is of pinna 148616304 Active Carito Serna MD [address] [place], [place] [address], [address], [facility] 5 21:43:09 Secondar y erectile dysfunct ion 999002530 Active Carito Serna MD [address] [place], [place] [address], [address], [facility] 5 21:43:09 Eating disorder 28851490 Active 2016 Carito Serna MD [address] [place], [place] [address], 3, [facility] 7 12:15:44 Candidia sis of mouth 50979725 Active 2016 Carito Serna MD [address] [facility], [place], [address], [facility] 7 12:20:05 Eczema 10404669 Active 2016 Carito Serna MD [address] [place] [address], [place], [place], 3, [facility] 7 16:44:28 Human immunode ficiency virus infectio n 50953108 Active 2016 diagnosed 06/2016 Carito Serna MD [address] [place] [address], [place], [place], 3, [facility] 7 14:48:24 Problem Notes None recorded. Procedures Surgical History Date Name Laterality Status Provider Name and Address Organization Details Recorded Time 3 Orthopaedic completed Tosin Lutz R.N. [facility] 12/25/2013 07:40:12 Imaging Results None [...] Details Last Updated DateTime 07/06/2016 179.71 cm 88192.69 g 22.2 kg/m2 Shell Holman M.A. [facility] 07/06/2016 11:03:13 Date Recorded Body height Body weight Body mass index (BMI) Systolic blood pressure Diastolic blood pressure Provider Name and Address Organization Details Last Updated DateTime 07/11/2016 179.71 cm 37754.15 g 23 kg/m2 110 mm[Hg] 60 mm[Hg] Irma Mahajan [facility] 7 15:12:59 Date Recorded Body height Body weight Body mass index (BMI) Systolic blood pressure Diastolic blood pressure Provider Name and Address Organization Details Last Updated DateTime 09/10/2015 179.71 cm 78090.26 g 24.7 kg/m2 114 mm[Hg] 70 mm[Hg] Addie Lara [facility] 6 13:23:12 Social History Question Answer Notes LastModified by Organizat ion Details LastModified Time Tobacco Smoking Status Never Smoker Shell Holman M.A. yes[place], [facility] 08/25/2011 16:09:38 Hard Of Hearing [...] available 02/26/2011 DSS/DCF Custody No [facility] Information not available 01/29/2013 Are You Passively [...] PROBLEMS Y RHEUMATOLOGIC PROBLEMS N HOSPITALIZATIONS N CAN CRIMPER PROBLEMS N ENT PROBLEMS/OTITIS MEDIA/ CHRONIC N [...] Time meningococcal MCV4P 1 completed Not Available [facility] 05/11/2019 02:33:25 Tdap 1 completed Not Available [facility] 05/11/2019 02:33:42 Influenza, split virus, trivalent, PF 1 completed Not Available [facility] 05/11/2019 02:35:17 Hib, unspecified formulation 9 completed Not Available [facility] 02/26/2011 03:18:43 IPV 0 completed Not Available [facility] 02/26/2011 03:18:43 DTaP, unspecified formulation 9 completed Not Available [facility] 02/26/2011 03:18:43 Hep B, unspecified formulation 9 completed Not Available [facility] 02/26/2011 03:19:20 DTaP, unspecified formulation 9 completed Not Available [facility] 02/26/2011 03:18:43 Hep B, unspecified formulation 9 completed Not Available [facility] 02/26/2011 03:18:43 DTaP, unspecified formulation 9 completed Not Available [facility] 02/26/2011 03:18:43 Hep B, unspecified formulation 9 completed Not Available [facility] 02/26/2011 03:19:20 Hib, unspecified formulation 9 completed Not Available [facility] 02/26/2011 03:18:43 IPV 9 completed Not Available [facility] 02/26/2011 03:18:43 DTaP, unspecified formulation 0 completed Not Available [facility] 02/26/2011 03:18:43 MMR 0 completed Not Available [facility] 02/26/2011 03:18:43 Hib, unspecified formulation 9 completed Not Available [facility] 02/26/2011 03:19:20 Hib, unspecified formulation 0 completed Not Available [facility] 02/26/2011 03:18:43 pneumococcal conjugate PCV 7 1 completed Not Available [facility] 02/26/2011 03:18:43 IPV 3 completed Not Available [facility] 02/26/2011 03:18:43 DTaP, unspecified formulation 3 completed Not Available [facility] 02/26/2011 03:19:20 pneumococcal conjugate PCV 7 0 completed Not Available [facility] 02/26/2011 03:18:43 MMR 3 completed Not Available [facility] 02/26/2011 03:18:43 IPV 9 completed Not Available [facility] 02/26/2011 03:18:43 HPV, quadrivalent 2 completed Not Available [facility] 05/11/2019 02:34:00 HPV, quadrivalent 2 completed Not Available [facility] 05/11/2019 02:34:01 HPV, quadrivalent 3 completed Not Available [facility] 05/11/2019 02:34:03 Influenza, split virus, quadrivalent, PF 4 completed Not Available [facility] 05/11/2019 02:35:59 Hep A, ped/adol, 2 dose 5 completed Not Available [facility] 05/11/2019 02:34:34 meningococcal MCV4P 5 completed Not Available [facility] 05/11/2019 02:36:06 Influenza, split virus, quadrivalent, PF 5 completed Not Available [facility] 05/11/2019 02:36:20 Hep A, ped/adol, 2 dose 6 completed Not Available [facility] 05/11/2019 02:36:44 Influenza, split virus, quadrivalent, PF 7 completed Not Available [facility] 05/11/2019 02:37:42 Past Encounters Encounter ID Performer Location Encounter Start Date Encounter Closed Date Diagnosis/Indication Diagnosis SNOMED-CT Code Diagnosis ICD10 Code Diagnosis Note [id number] Juanjose Gardiner MD [facility] [address] [facility] [place] [address] 12/19/2007 08:39:02 01/01/2009 01:23:50 [id number] Bina Espinosa MD [facility] [address] [facility] [place] [address] 06/04/2008 11:24:11 06/04/2008 12:30:17 [id number] Aubrie Melissa MD [facility] [address] [facility] [place] [address] 10/06/2008 12:43:32 10/06/2008 13:29:42 [id number] Juanjose Gardiner MD [facility] [address] [facility] [place] [address] 01/14/2009 09:02:37 01/14/2009 09:39:58 [id number] Olivier Norris MD [facility] [address] [facility] [place] [address] 05/12/2010 16:50:35 05/12/2010 17:11:28 [id number] Carito Senra MD [facility] [address] [place] [address] 08/19/2010 14:49:31 08/19/2010 17:35:49 [id number] Carito Serna MD [facility] [address] [place] [address] 09/15/2010 10:01:10 09/15/2010 10:41:34 [id number] Carito Serna MD [facility] [address] [facility] [place] [address] 01/26/2011 14:10:08 01/26/2011 15:18:57 [id number] Fransisco Ledezma MD [facility] [address] [place] [address] 02/04/2011 15:03:25 02/04/2011 16:38:11 [id number] Carito Seran MD [facility] [address] 03/23/2011 14:07:36 03/23/2011 15:02:31 [id number] Carito Serna MD [facility] [address] [address] 06/01/2011 14:07:35 06/01/2011 15:24:13 [id number] Carito Serna MD [address] [address] 08/25/2011 15:59:48 08/25/2011 17:22:05 [id number] Fransisco Ledezma MD [address] [address] 12/27/2011 08:53:23 12/27/2011 09:37:31 [id number] Carito Serna MD [address] [address] 05/31/2012 08:58:17 05/31/2012 09:06:01 [id number] Carito Serna MD [address] [address] 08/29/2012 14:56:55 08/29/2012 16:52:58 [id number] No VERA, C++ PROFESSOR, PhD [address] [address] 12/17/2012 16:31:11 12/17/2012 16:56:31 Acute pharyngitis 753778414 [id number] Klaudia Rutledge MD [address] [address] 01/02/2013 08:36:31 01/02/2013 08:59:08 Pain of joint of ankle 190051114 Injury of ankle 327355148 [id number] Carito Serna MD [address] [address] 01/10/2013 09:07:23 01/10/2013 12:01:40 Acute pharyngitis 488159503 [id number] Klaudia Rutledge MD [address] [address] 01/29/2013 14:10:51 01/29/2013 14:47:52 Otitis externa 7500762 ear wick placed and needs to be removed [id number] Carito Serna MD [address] [address] 03/29/2013 16:14:09 03/29/2013 17:16:47 Dysuria 99189244 [id number] Carito Serna MD [address] [address] 04/03/2013 16:10:50 04/03/2013 17:09:33 Attention deficit hyperactivity disorder, combined type 69239883 Dysuria 78515849 Dizziness 362127150 [id number] Klaudia Rutledge MD [address] [address] 05/28/2013 08:42:30 05/28/2013 09:18:20 Muscle strain 44719560 Self inflicted injury 913363883 Cutting L arm- disc with mom and patient- stressed about multiple things- has seen crisis Chest pain 94763617 Like ly MS pain- disc mgmt [id number] Carito Serna MD [address] [address] 07/03/2013 14:10:39 07/03/2013 16:29:25 Pain of hip region 85764019 Attention deficit hyperactivity disorder, combined type 14286815 [id number] Carito Serna MD [address] [address] 08/29/2013 08:15:17 08/29/2013 13:17:08 Well child 482092356 Attention deficit hyperactivity disorder, combined type 02593808 Anxiety 21270190 Pain of hip region 94281942 [id number] Carito Serna MD [address] [address] 12/25/2013 16:19:51 12/26/2013 08:42:04 Attention deficit hyperactivity disorder, combined type 40828968 Anxiety 68659078 Depressive disorder 80979105 [id number] Carito Serna MD [address] [address] 01/17/2014 10:51:23 01/17/2014 12:43:38 Depressive disorder 64189787 Attention deficit hyperactivity disorder, combined type 40323945 Influenza vaccine needed 5105170000 106 [id number] Carito Serna MD [address] [address] 02/24/2014 14:17:13 02/24/2014 15:19:41 Depressive disorder 47344115 Attention deficit hyperactivity disorder, combined type 38532572 Pain of ankit int of ankle 491381701 [id number] Klaudia Rutledge MD [address] [address] 04/11/2014 10:55:28 04/11/2014 11:36:20 Acute pharyngitis 526639001 Upper resp iratory infection 89437341 Viral syndrome 916213650 [id number] Carito Serna MD [address] [address] 07/18/2014 10:46:15 07/18/2014 11:44:05 Acute pharyngitis 476741646 [id number] Carito Serna MD [address] [address] 09/10/2014 09:50:48 09/10/2014 15:03:19 Well child 003571408 Increased body mass index 12246175 Attention deficit hyperactivity disorder, combined type 56778567 Depressive disorder 71196236 [id number] Carito Serna MD [address] [address] 10/27/2014 09:00:56 10/27/2014 10:02:05 Acute pharyngitis 982392696 Sinusitis 88580448 [id number] Carito Serna MD [address] [address] 02/11/2015 15:16:13 02/11/2015 16:30:45 Depressive disorder 68338909 F32.9 Cellulitis of pinna 2322 92352 H60.12 Increased body mass index 89696231 Z68.41 Secondary erectile dysfunction 984388269 N52.8 Active or passive immunization 667057371 Z23 [id number] Carito Serna MD [address] [place] [address] 09/10/2015 13:11:56 09/10/2015 15:26:02 Well child 121409601 Z00.129 Active or passive immunization 164131313 Z23 Nasal congestion 2169296 0 R09.81 Attention deficit hyperactivity disorder, combined type 28992659 F90.2 Depressive disorder 3548 9007 F32.9 [id number] Carito Serna MD [address] [address] 01/21/2016 12:50:43 01/21/2016 13:28:29 Acute conjunctivitis 54438393 H10.31 Cellulitis 067367547 L03 .90 [id number] Carito Serna MD [address] [address] 07/06/2016 10:59:47 07/06/2016 12:36:13 Eating disorder 60168189 F50.9 Sexually t ransmitted infectious disease 9456727 A64 Candidiasis of mouth 797 21155 B37.0 Depressive disorder 3548 9007 F32.9 Anxiety 89697224 F41.9 Attention deficit hyperactivity disorder, combined type 34918500 F90.2 [id number] Carito Serna MD [address] [address] 07/11/2016 15:08:27 07/11/2016 16:49:05 Adult health examination 147046705 Z00.01 Administra tion of influenza vaccine [id number] Z23 Eating disorder 77783907 F50.9 Candidiasis of mouth [id number] B37.0 Attention deficit hyperactivity disorder, combined type 67199809 F90.2 Sexually t ransmitted infectious disease 6215602 A64 Eczema [id number] L30.9 [id number] Carito Serna MD [address] [phone] 07/15/2016 16:10:50 07/15/2016 17:52:48 Human immunodeficiency virus infection [id number] B20 Sexually t ransmitted infectious disease 8666496 A64 Eating disorder 58256178 F50.9 Health Concerns Section Related Observation LastModified by Organization Detai ls LastModified Time None Recorded Concern Status LastModified by Organization Details LastModified Time None Recorded Advance Directives Directive None Recorded Payers Insurance Date Sequence Insurance Name Policy Number Policy Ruelas Covered Member ID Ruelas Member ID Guarantor Name 12/06/2022 1 [facility] (MEDICAID HMO) [id number] Kelby Parker [id number] [place]na [place] 12/06/2022 1 [facility] (MEDICAID HMO) [id number] Kelby Parker [id number] Julianna [place] 12/06/2022 2 [place] [facility] Kelby Parker [id number] Julianna Ric 12/06/2022 1 [place] [facility] Kelby Parker [id number] Julianna Ric Notes Date Note Type Note [...] ill contacts. NO makeup. 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 Carito Serna MD [address] [place] [address], [place], [phone], [facility] 07/06/2016 12:25:27 07/15/2016 text/html RS Sick [...] hands with inc lotion. Carito Serna MD [address] [place] [address], [phone], [facility] 07/15/2016 17:55:49
--- OUTSIDE RECORDS SUMMARY | 2024-10-23 12:29 | XMS_ITS | Clinical Summary ---
Author Organization [facility] Address [address] [place] [address] Care Team Providers Care Can Conveyor Feeder Name Role Phone Unavailable Primary Care Provider [...]
[2024-10-23 13:10] LABS: MANUAL DIFF FLAG NO
[2024-10-23 13:29] LABS: White Blood Count 3.6 X10*3/uL (4.8-10.8)
[2024-10-23 13:30] LABS: Hematocrit 41.5 % (42.0-52.0); Hemoglobin 14.2 g/dl (14.0-18.0); Imm Gran Abs Auto 0.01 X10*3/uL (0.00-0.03); Imm Gran Pct Auto 0.3 % (0.0-0.4); Lymphocytes Absolute Auto 1.9 X10*3/uL (1.2-4.9); Mean Corpuscular HGB Conc 34.2 g/dl (31.0-36.0); Mean Corpuscular Hemoglobin 30.7 pg (27.0-33.0); Mean Corpuscular Volume 89.8 fL (80.0-98.0); NRBC Abs Auto 0.000 X10*3/uL (0.0-0.012); NRBC Pct Auto 0.0 /100WBC (0.0-0.2); Platelet Count 196 X10*3/uL (160-400); Red Blood Count 4.62 X10*6/uL (4.60-5.80)
[2024-10-23 13:43] LABS: Hemoglobin A1C 129.9251 umol/L; Total Hemoglobin (HGBA1C) 3779.6953 umol/L
[2024-10-23 13:51] LABS: Alanine Aminotransferase 24 U/L (0-40); Albumin Level 4.8 g/dL (3.5-5.0); Alkaline Phosphatase 85 U/L (39-117); Anion Gap 13 (12-20); Aspartate Amino Transferase 21 U/L (5-37); Blood Urea Nitrogen 8 mg/dL (9-16); Calcium 9.4 mg/dL (8.4-10.2); Carbon Dioxide 25 mmol/L (22-29); Chloride 108 mmol/L (96-108); Estimated Glomerular Filt Rate > 60; Potassium 3.8 mmol/L (3.3-5.1); Sodium 142 mmol/L (135-145); Total Protein 7.5 g/dL (6.5-8.0)
[2024-10-23 14:12] LABS: HBS Num1 2.20 mIU/mL (0-7.99); HBc Num1 0.05 S/CO (0.00-0.79); HBsAGNum1 0.26 S/CO (0.00-0.99); Hepatitis B Surface Antigen Negative (Negative); ~HepC Num1 0.12 S/CO (0.00-0.79); ~Hepatitis B Surface Antibody NONREACTIVE (Nonreactive); ~Hepatitis C Antibody Nonreactive (Nonreactive)
[2024-10-23 14:13] LABS: Syphilis Screen Nonreactive (Nonreactive)
[2024-10-24 08:41] LABS: ~Hepatitis A Antibody IgG 2.17 S/CO (0.00-0.99)
[2024-10-24 12:54] LABS: Rubeola IgG (Measles) 24.20 AU/mL
[2024-10-24 14:20] LABS: CT PCR Urine NOT DETECTED (Not Detect.); NG PCR Urine NOT DETECTED (Not Detect.)
[2024-10-25 15:49] LABS: HIV RNA PCR Qn Copies 53300 copies/mL (NOT DETECTED); HIV RNA PCR Qn Log Copies 4.73 (NOT DETECTED)
[2024-10-28 01:18] LABS: TS Negative Control Passed; TS Panel A 0; TS Panel B 0; TS Positive Control Passed; TSpotTB Negative (Negative)
[2024-10-28 15:53] LABS: Absolute CD3 Count 1345 cells/uL (840-3060); Absolute CD8 Count 916 cells/uL (180-1170); Percent CD3 Cells 75 % (57-85); Percent CD8 Cells 51 % (12-42)
== END 2024-10-23 11:44 | disposition home or self-care (01) ==
LOC: HO.HHCL 11:43
PROVIDERS: PCP Student in an Organized Health Care Education/Training Program; Referring Provider Internal Medicine; Visit Provider Student in an Organized Health Care Education/Training Program
DX: B20 Human immunodeficiency virus [HIV] disease (principal); Z00.00 Encounter for general adult medical examination without abnormal findings
CPT/HCPCS: 36415; 80053; 83036; 84443; 85025; 86359; 86360; 86481; 86644; 86645; 86704; 86706; 86708; 86735; 86762; 86765; 86777; 86778; 86780; 86787; 86803; 87340; 87491; 87536; 87591

== ENCOUNTER 2024-10-29 13:01 | Outpatient (REF) | payer SELFPAY ==
--- NOTE | ~2024-10-29 | XR_ITS ---
EXAMINATION: XR HAND, RIGHT CLINICAL INFORMATION: fracture COMPARISON: None available. TECHNIQUE: Four views of the right hand. FINDINGS: There is a subacute appearing intra-articular fracture at the base of the first metacarpal, with no significant displacement, minimal impaction and minimal angulation. There is a small amount of bridging bony callus present indicating likely healing. No additional fractures or focal bone lesions. There is otherwise normal alignment of the hand and wrist. Joint spaces appear preserved. No soft tissue abnormalities are evident. XR/XR hand RT min 3V IMPRESSION: Subacute intra-articular fracture of the base of the first metacarpal. There is early healing likely present. Electronically signed by: Jorden Gottlieb MD 10/29/2024 01:43 PM EDT
--- OUTSIDE RECORDS SUMMARY | 2024-10-29 13:38 | XMS_ITS | Clinical Summary ---
Author Organization [facility] Address [address] [place] [address] Care Team Providers Care [employer] District Clerk Name Role Phone Unavailable Primary Care [...]
--- OUTSIDE RECORDS SUMMARY | 2024-10-29 13:39 | XMS_ITS | Data Portability ---
Author Organization [place] - [facility], [facility] Address [address] [place] [address] Assessment Encounter Date Assessment Date Assessment LastModified [...] looking for a job, may relocate to [facility] since older daughter lives there, asked pt [...] necessary changes, wt check next week at [facility]; Issues with anal sex/douching of anus - [...] DNA, PCR, unspecif ied specimen 2016 017 [id number] [facility] (Centralized Electronic Ordering - All Locations), Patient Can Go To The Location Of Their Choice, 7 10:28:18 HIV (1+2) Ab screen, serum 2016 0[facility] - All Locations), Patient Can Go To The Location Of Their Choice, 7 09:05:52 HIV (1+2) Ab, western blot, serum 2016 017 [facility] (Centralized Electronic Ordering - All [...] Go To The Location Of Their Choice, [id number] 7 16:01:39 amylase + lipase, serum 2016 017 [facility] (Centralized Electronic Ordering - All Locations), Patient Can Go To The Location Of Their Choice, [id number] 7 09:05:52 prealbum in, serum 2016 017 CONNIE [facility] (Centralized Electronic Ordering - All Locations), Patient Can Go To The Location Of Their Choice, [id number] 7 16:01:42 urinalys is, dipstick [address] [facility], [address] [place] [address], [place], [address], 7 12:13:34 CT + NG DNA, PCR, urine 2015 016 [email or web address] [id number] [facility] (Centralized Electronic Ordering - All Locations), Patient Can Go To The Location Of Their Choice, [facility] 6 04:08:45 Referral pediatri c infectio us disease referral 2016 017 yissel Not available 7 08:27:02 Procedures None recorded . Surgeries None recorded . Imaging electroc ardiogra m 2016 017 [facility] (Outt Non-Invasive Cardiology Scheduling), [facility] [place], [address], 7 09:24:05 Medication Orders hydrocor tisone valerate [...] By Organization Details Last Modified Time 09/10/2015 [id number] patient health questionnaire modified for adolescents* [email or web address] [id number] Not available 04/09/2016 04:08:45 5210 program - 1 hour of exercise [email or web address] [id number] Not available 04/09/2016 04:08:43 immunization: wh at you need to know [email or web address] [id number] Not available 04/09/2016 04:08:43 Well Visit, 12 Years to Young Teen: Care Instructions Not available 04/09/2016 04:08:43 07/11/2016 [id number] program - 5 fruits & veggies CONNIE [...] sment * PHQ-9 positi ve Not Available [facility] [address] [place] [address], [address], 07/11/2016 15:09:21 07/07/19 17 07/06/2016 urina lysis , dipst ick Leukocytes Negati ve Not Available [facility] [address] [place], [address], 07/06/2016 11:57:23 07/07/19 17 07/06/2016 urina lysis , dipst ick Nitrite negati ve Not Available [facility] [address] [place], [address], 07/06/2016 11:57:23 07/07/19 17 07/06/2016 urina lysis , dipst ick Protein Trace Not Available [facility] [address] [place], [address], 07/06/2016 11:57:23 07/07/19 17 07/06/2016 urina lysis , dipst ick pH 7.5 Not Available [facility] [address] [place] [address], [address], 07/06/2016 11:57:23 07/07/19 17 07/06/2016 urina lysis , dipst ick Blood Negati ve Not Available [facility] [address] [place] [address], [address], 07/06/2016 11:57:23 07/07/19 17 07/06/2016 urina lysis , dipst ick Ketone Negati ve Not Available [facility] [address] [place] [address], [address], 07/06/2016 11:57:23 07/07/19 17 07/06/2016 urina lysis , dipst ick Glucose Negati ve Not Available [facility] [address] [place] [address], [address], 07/06/2016 11:57:23 09/10/19 16 09/10/2015 patie nt healt h quest ionna fanta modif ied for adole scent s* PHQ-9 positi ve Not Available [facility] [address] [place] [address], [address], 09/10/2015 13:15:36 09/10/19 16 09/11/2015 CT + NG DNA, PCR, urine urine chlamydia amp probe NEGAT LUZMARIA No Chlam ydia Trach omati s RNA detec lavonne in this patie nt's sampl e (REFE RENCE RANGE /NORM AL VALUE : NOT DETEC LAVONNE) Not Available [facility] (Centralized Electronic Ordering - All Locations) Patient Can Go To The Location Of Their Choice, [id number] 09/11/2015 14:27:11 09/10/19 16 09/11/2015 CT + [...] neede d. Conta ct phone numbe r [phone]. Thera peuti c failu re or succe ss canno t be deter mined with the Aptim a Combo 2 assay since nucle ic acid may persi st follo wing appro priat e antim icrob ial thera py. The Cent[facility] for Disea se Contr ol and Preve ntion ([facility]) recom mends confi rmato ry retes ting using cultu re or a diffe rent nucle ic acid ampli ficat ion test when posit luzmaria resul ts occur , if indic ated. Testi ng perfo rmed or repor lavonne by [facility] Refer ence Labor cyndii es, a Servi ce of [facility], [address], [place] [address] CLIA [id number] Kim bruce MD, PhD, Medic al [facility] Not Available [facility] (Centralized Electronic Ordering [...] Go To The Location Of Their Choice, [id number] 07/07/2016 02:08:17 07/07/1907/07/2016 urina lysis , compl ete hyaline cast 4 lpf (0-2) high Not Available [facility] (Centralized Electronic Ordering - All Locations) Patient Can Go To The Location Of Their Choice, [id number] 07/07/2016 02:08:17 07/07/1907/08/2016 CT + NG DNA, PCR, urine urine chlamydia amp probe NEGAT LUZMARIA No Chlam ydia Trach omati s RNA detec lavonne in this patie nt's sampl e (REFE RENCE RANGE /NORM AL VALUE : NOT DETEC LAVONNE) Not Available [facility] (Centralized Electronic Ordering - All Locations) Patient Can Go To The Location Of Their Choice, [id number] 07/08/2016 07:05:47 07/07/1907/08/2016 CT + NG DNA, [...] Disea se Contr ol and Preve ntion ([facility]) recom mends confi rmato ry retes ting [...] Go To The Location Of Their Choice, [id number] 07/13/2016 16:00:07 07/14/19 17 07/13/2016 CBC w/ [...] Go To The Location Of Their Choice, [id number] 07/13/2016 16:00:07 07/14/19 17 07/13/2016 CBC w/ [...] Go To The Location Of Their Choice, [id number] 07/13/2016 16:45:47 07/14/19 17 07/13/2016 hepat itis B surfa ce Ab, quali tativ e, serum anti-hbs NEGAT LUZMARIA INDIC ATES LACK OF PRIOR EXPOS URE. Not Available [facility] (Centralized Electronic Ordering - All Locations) Patient Can Go To The Location Of Their Choice, [id number] 07/13/2016 17:05:40 07/14/19 17 07/14/2016 tissu e [...] Go To The Location Of Their Choice, [id number] 07/14/2016 10:57:06 07/14/19 17 07/14/2016 HIV 1+2 [...] 356 Unit: mg/dL Test Perfo rmed by: [facility], [address], [place] [address] Labor atory Direc tor: Jerry parker III, M.D. Not Available [facility] (Centralized Electronic Ordering - All Locations) Patient Can Go To The Location Of Their Choice, 07/15/2016 14:59:18 07/14/19 17 07/20/2016 carot annie, serum carotene 11 Refer ence range : 3 to 91 Unit: ug/dL (NOTE ) Test Perfo rmed by: [facility] [place] [address] [facility] [place] [address] Not Available [facility] (Centralized Electronic Ordering - [...] Go To The Location Of Their Choice, [id number] 07/19/2016 12:19:00 07/19/19 17 07/19/2016 HIV (1+2) [...] anda am No observ ation record ed. [facility] (Outt Non-[facility] Cardiology Scheduling) [address] [place], [address], 08/10/2016 10:16:27 Result Notes None recorded. Problems Name Problem SNOMED Code Status Onset Date Resolution Date Notes Provider Name and Address Organization Details Recorded Time Joint pain in ankle and foot Completed 01/02/2013 Klaudia patterson [place] - [facility] 3 08:46:57 Cellulit is 235201192 Completed 200801/02/2013 Klaudia patterson [place] [facility] 3 08:46:57 Pain of joint of wrist 056736635 Completed 01/02/2013 Klaudia patterson [place] [facility] 3 08:46:57 Viral disease 80302145 Completed 200801/02/2013 [facility]ud[facility] 3 08:46:57 Attentio n deficit hyperact ivity disorder , combined type 13874600 Active Carito Serna MD [address] [place] [address], [place], [address], [facility] 5 13:02:27 Acute pharyngi tis 924028143 Completed 200801/02/2013 Klaudia patterson [place] [facility] 3 08:46:57 Streptoc occal sore throat 17540416 Completed 01/02/2013 Klaudia patterson [facility] 3 08:46:57 Pain in limb 66509603 Completed 01/02/2013 [facility]ud[facility] patterson [facility] 3 08:46:57 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 59354503 Completed 200801/02/2013 Klaudia patterson [place] [facility] 3 08:46:57 Sprain of ankle 73901763 Completed 01/02/2013 Klaudiavee patterson [facility] 3 08:46:57 Disorder of pulmonar y circulat ion 17946389 Completed 200807/24/2013 Carito Serna MD [address] [place] [address], [place], [address], [facility] 4 16:14:28 Pain of joint of ankle 475179976 Active Carito Serna MD [address] [place] [address], [place], [address], [facility] 4 15:15:00 Injury of ankle 347457700 Active has extra bone in foot- os-trigon um- to have surgery in [place]- Nikki Wu [facility] 3 14:25:18 Acute pharyngi tis 062007255 Completed 01/29/2013 Klaudia Rutledge [facility] 3 14:25:18 Otitis externa 2023847 Completed 02/11/2015 Carito Serna MD [address] [place] [address], [place], [address], [facility] 5 07:55:14 Dysuria 56160460 Active Carito Serna MD [address] [place], [place] [address], [address], [facility] 3 17:20:16 Urinary tract infectio us disease 80547336 Active Carito Serna MD [address] [place] [address] [place], 3, [facility] 3 09:40:56 Dizzines s 085499224 Completed 07/24/2013 Carito Serna MD [address] [place] [address] [place], 3, [facility] 4 16:14:28 Muscle strain 94231436 Completed 07/24/2013 Carito Serna MD [address] [place], [place] [address], 3, [facility] 4 16:14:28 Chest pain 96480320 Completed 07/24/2013 Carito Serna MD [address] [place], [place] [address], [address], [facility] 4 16:14:28 Pain of hip region 67593066 Active Carito Serna MD [address] [place], [place] [address], [address], [facility] 4 21:30:01 Anxiety 79078060 Active Carito Serna MD [address] [place], [place] [address], 3, [facility] 4 18:09:45 Depressi ve disorder 23845544 Active Carito Serna MD [address] [place] [address], [place], [address], [facility] 5 21:43:09 Acute pharyngi tis 491400618 Completed 02/11/2015 Carito Serna MD [address] [place] [address], [place], [address], [facility] 5 07:55:14 Upper respirat ory infectio n 51357999 Completed 02/11/2015 Carito Serna MD [address] [place] [address], [place], [address], [facility] 5 07:55:14 Viral syndrome 519016182 Completed 02/11/2015 Carito Serna MD [address] [place], [place] [address], 3, [facility] 5 07:55:14 Increase d body mass index 25704979 Active Carito Serna MD [address] [place], [place] [address], [address], [facility] 5 21:43:09 Sinusiti s 21954312 Active Carito Serna MD [address] [place] [address], [place], [address], [facility] 5 10:00:11 Cellulit is of pinna 131746414 Active Carito Serna MD [address] [place], [place] [address], [address], [facility] 5 21:43:09 Secondar y erectile dysfunct ion 902618326 Active Carito Serna MD [address] [place], [place] [address] [place], [address], [facility] 5 21:43:09 Eating disorder 43988621 Active 2016 Carito Serna MD [address] [place], [place] [address] [place], 3, [facility] 7 12:15:44 Candidia sis of mouth 85683051 Active 2016 Carito Serna MD [address] [facility], [place], [address], [facility] 7 12:20:05 Eczema 35189812 Active 2016 Carito Serna MD [address] [place] [address], [place], [place], 3, [facility] 7 16:44:28 Human immunode ficiency virus infectio n 07745651 Active 2016 diagnosed 06/2016 Carito Serna MD [address] [place] [address], [place], [place], 3, [facility] 7 14:48:24 Problem Notes None recorded. Procedures Surgical History Date Name Laterality Status Provider Name and Address Organization Details Recorded Time 3 Orthopaedic completed Tosin Lutz R.N. [facility] 12/25/2013 07:40:12 Imaging Results None [...] Details Last Updated DateTime 07/06/2016 179.71 cm 56850.69 g 22.2 kg/m2 Shell Holman M.A. [facility] 07/06/2016 11:03:13 Date Recorded Body height Body weight Body mass index (BMI) Systolic And Diastolic Provider Name and Address Organization Details Last Updated DateTime 07/11/2016 179.71 cm 04275.15 g 23 kg/m2 110/60 mm[Hg] Irma Mahajan [facility] 07/11/2016 15:12:59 Date Recorded Body height Body weight Body mass index (BMI) Systolic And Diastolic Provider Name and Address Organization Details Last Updated DateTime 09/10/2015 179.71 cm 15280.26 g 24.7 kg/m2 114/70 mm[Hg] Adide Lara [facility] 09/10/2015 13:23:12 Social History Question Answer Notes LastModified by Organizat ion Details LastModified Time Tobacco Smoking Status Never Smoker Shell Holman M.A. [place], [facility] 08/25/2011 16:09:38 Hard Of Hearing [...] Information not available 02/26/2011 DSS/DCF Custody No [place] Information not available 01/29/2013 Are You Passively [...] IMMUNOLOGIC PROBLEMS N DEVELOPMENTAL/ BEHAVIORAL PROBLEMS N ACCIDENTS INJURIES Y ENDOCRINE PROBLEMS/DIABETES N GI PROBLEMS/CONSTIPATION N RHEUMATOLOGIC PROBLEMS N ENT PROBLEMS/OTITIS MEDIA/ CHRONIC N HEMATOLOGIC /ONCOLOGIC PROBLEMS N RENAL PROBLEMS Y OTHER N ADHD Y CONGENITAL AND GENETIC PROBLEMS N INFECTIOUS DISEASE PROBLEMS N PSYCH PROBLEMS Y HOSPITALIZATIONS N ORTHOPEDIC PROBLEMS Y CHICKEN POX / VARICELLA HISTORY or POSIT LUZMARIA TITER Y MUSCLE/ JOINT/ BONE PROBLEMS Y RECREATION CLERK PROBLEMS N NEUROLOGIC/ SEIZURES OR CONVULSIONS N HEADACHES/MIGRAINES/DIZZINESS N PUMONARY PROBLEMS/ ASTHMA N Immunizations Vaccine Type Date Status Note Provider Nam e and Address Organization Details Recorded Time meningococcal MCV4P 1 completed Not Available [facility] 05/11/2019 02:33:25 Tdap 1 completed Not Available [facility] 05/11/2019 02:33:42 Influenza, split virus, trivalent, PF 1 completed Not Available [facility] 05/11/2019 02:35:17 Hib, unspecified formulation 9 completed Not Available [facility] 02/26/2011 03:18:43 IPV 0 completed Not Available [facility] 02/26/2011 03:18:43 DTaP, unspecified formulation 9 completed Not Available [facility] 02/26/2011 03:18:43 Hep B, unspecified formulation 9 completed Not Available [facility] 02/26/2011 03:19:20 DTaP, unspecified formulation 9 completed Not Available [facility] 02/26/2011 03:18:43 Hep B, unspecified formulation 9 completed Not Available [facility] 02/26/2011 03:18:43 DTaP, unspecified formulation 9 completed Not Available [facility] 02/26/2011 03:18:43 Hep B, unspecified formulation 9 completed Not Available [facility] 02/26/2011 03:19:20 Hib, unspecified formulation 9 completed Not Available [facility] 02/26/2011 03:18:43 IPV 9 completed Not Available [facility] 02/26/2011 03:18:43 DTaP, unspecified formulation 0 completed Not Available [facility] 02/26/2011 03:18:43 MMR 0 completed Not Available [facility] 02/26/2011 03:18:43 Hib, unspecified formulation 9 completed Not Available [facility] 02/26/2011 03:19:20 Hib, unspecified formulation 0 completed Not Available [facility] 02/26/2011 03:18:43 pneumococcal conjugate PCV 7 1 completed Not Available [facility] 02/26/2011 03:18:43 IPV 3 completed Not Available [facility] 02/26/2011 03:18:43 DTaP, unspecified formulation 3 completed Not Available [facility] 02/26/2011 03:19:20 pneumococcal conjugate PCV 7 0 completed Not Available [facility] 02/26/2011 03:18:43 MMR 3 completed Not Available [facility] 02/26/2011 03:18:43 IPV 9 completed Not Available [facility] 02/26/2011 03:18:43 HPV, quadrivalent 2 completed Not Available [facility] 05/11/2019 02:34:00 HPV, quadrivalent 2 completed Not Available [facility] 05/11/2019 02:34:01 HPV, quadrivalent 3 completed Not Available [facility] 05/11/2019 02:34:03 Influenza, split virus, quadrivalent, PF 4 completed Not Available [facility] 05/11/2019 02:35:59 Hep A, ped/adol, 2 dose 5 completed Not Available [facility] 05/11/2019 02:34:34 meningococcal MCV4P 5 completed Not Available [facility] 05/11/2019 02:36:06 Influenza, split virus, quadrivalent, PF 5 completed Not Available [facility] 05/11/2019 02:36:20 Hep A, ped/adol, 2 dose 6 completed Not Available [facility] 05/11/2019 02:36:44 Influenza, split virus, quadrivalent, PF 7 completed Not Available [facility] 05/11/2019 02:37:42 Past Encounters Encounter ID Performer Location Encounter Start Date Encounter Closed Date Diagnosis/Indication Diagnosis SNOMED-CT Code Diagnosis ICD10 Code Diagnosis Note [id number] Juanjose Gardiner MD [facility] [address] [place] [address] 12/19/2007 08:39:02 01/01/2009 01:23:50 [id number] Bina Espinosa MD [facility] [address] [place] [address] 06/04/2008 11:24:11 06/04/2008 12:30:17 [id number] Aubrie Melissa MD [facility] [address] [place] [address] 10/06/2008 12:43:32 10/06/2008 13:29:42 [id number] Juanjose Gardiner MD [facility] [address] [place] [address] 01/14/2009 09:02:37 01/14/2009 09:39:58 [id number] Olivier Norris MD [facility] [address] [place] [address] 05/12/2010 16:50:35 05/12/2010 17:11:28 [id number] Carito Serna MD [facility] [address] [place] [address] 08/19/2010 14:49:31 08/19/2010 17:35:49 [id number] Carito Serna MD [facility] [address] [place] [address] 09/15/2010 10:01:10 09/15/2010 10:41:34 [id number] Carito Serna MD [facility] [address] [place] [address] 01/26/2011 14:10:08 01/26/2011 15:18:57 [id number] Fransisco Ledezma MD [facility] [address] [place] [address] 02/04/2011 15:03:25 02/04/2011 16:38:11 [id number] Carito Serna MD [facility] [address] [place] [address] 03/23/2011 14:07:36 03/23/2011 15:02:31 [id number] Carito Serna MD [address] [address] 06/01/2011 14:07:35 06/01/2011 15:24:13 [id number] Carito Serna MD [address] [address] 08/25/2011 15:59:48 08/25/2011 17:22:05 [id number] Fransisco Ledezma MD [address] [address] 12/27/2011 08:53:23 12/27/2011 09:37:31 [id number] Carito Serna MD [address] [address] 05/31/2012 08:58:17 05/31/2012 09:06:01 [id number] Carito Serna MD [address] [address] 08/29/2012 14:56:55 08/29/2012 16:52:58 [id number] No Melgar PNP, 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, PhD [address] [address] 12/17/2012 16:31:11 12/17/2012 16:56:31 Acute pharyngitis 242007498 [id number] Klaudia Rutledge MD [address] [address] 01/02/2013 08:36:31 01/02/2013 08:59:08 Pain of joint of ankle 995699831 Injury of ankle 020181400 [id number] Carito Serna MD [address] [address] 01/10/2013 09:07:23 01/10/2013 12:01:40 Acute pharyngitis 965150489 [id number] Klaudia Rutledge MD [address] [address] 01/29/2013 14:10:51 01/29/2013 14:47:52 Otitis externa 2202757 ear wick placed and needs to be removed [id number] Carito Serna MD [address] [address] 03/29/2013 16:14:09 03/29/2013 17:16:47 Dysuria 68096558 [id number] Carito Serna MD [address] [address] 04/03/2013 16:10:50 04/03/2013 17:09:33 Attention deficit hyperactivity disorder, combined type 43375389 Dysuria 91021656 Dizziness 368621726 [id number] Klaudia Rutledge MD [address] [address] 05/28/2013 08:42:30 05/28/2013 09:18:20 Muscle strain 16077322 Self inflicted injury 185031820 Cutting L arm- disc with mom and patient- stressed about multiple things- has seen crisis Chest pain 03617375 Like ly MS pain- disc mgmt [id number] Carito Serna MD [address] [address] 07/03/2013 14:10:39 07/03/2013 16:29:25 Pain of hip region 06132941 Attention deficit hyperactivity disorder, combined type 60833488 [id number] Carito Serna MD [address] [address] 08/29/2013 08:15:17 08/29/2013 13:17:08 Well child 457666265 Attention deficit hyperactivity disorder, combined type 15910216 Anxiety 00336482 Pain of hip region 44467592 [id number] Carito Serna MD [address] [address] 12/25/2013 16:19:51 12/26/2013 08:42:04 Attention deficit hyperactivity disorder, combined type 92901822 Anxiety 22507498 Depressive disorder 35450904 [id number] Carito Serna MD [address] [address] 01/17/2014 10:51:23 01/17/2014 12:43:38 Depressive disorder 95772457 Attention deficit hyperactivity disorder, combined type 05623404 Influenza vaccine needed 5272540356 106 [id number] Carito Serna MD [address] [address] 02/24/2014 14:17:13 02/24/2014 15:19:41 Depressive disorder 31617144 Attention deficit hyperactivity disorder, combined type 85096804 Pain of ankit int of ankle 191836591 [id number] Klaudia Rutledge MD [address] [address] 04/11/2014 10:55:28 04/11/2014 11:36:20 Acute pharyngitis 442925230 Upper resp iratory infection 79039675 Viral syndrome 311015159 [id number] Carito Serna MD [address] [address] 07/18/2014 10:46:15 07/18/2014 11:44:05 Acute pharyngitis 258540083 [id number] Carito Serna MD [address] [address] 09/10/2014 09:50:48 09/10/2014 15:03:19 Well child 950087690 Increased body mass index 12558260 Attention deficit hyperactivity disorder, combined type 47965226 Depressive disorder 03959549 [id number] Carito Serna MD [address] [address] 10/27/2014 09:00:56 10/27/2014 10:02:05 Acute pharyngitis 424149379 Sinusitis 64503306 [id number] Carito Serna MD [address] [address] 02/11/2015 15:16:13 02/11/2015 16:30:45 Depressive disorder 18492973 F32.9 Cellulitis of pinna 2322 39863 H60.12 Increased body mass index 21646919 Z68.41 Secondary erectile dysfunction 625538939 N52.8 Active or passive immunization 581213293 Z23 [id number] Carito Serna MD [address] [address] 09/10/2015 13:11:56 09/10/2015 15:26:02 Well child 149231554 Z00.129 Active or passive immunization 841835843 Z23 Nasal congestion 4530934 0 R09.81 Attention deficit hyperactivity disorder, combined type 33853982 F90.2 Depressive disorder 3548 9007 F32.9 [id number] Carito Serna MD [address] [address] 01/21/2016 12:50:43 01/21/2016 13:28:29 Acute conjunctivitis 80202204 H10.31 Cellulitis 158778910 L03 .90 [id number] Carito Serna MD [address] [address] 07/06/2016 10:59:47 07/06/2016 12:36:13 Eating disorder 42254943 F50.9 Sexually t ransmitted infectious disease 4351341 A64 Candidiasis of mouth 797 71346 B37.0 Depressive disorder 3548 9007 F32.9 Anxiety 69898830 F41.9 Attention deficit hyperactivity disorder, combined type [id number] F90.2 [id number] Carito Serna MD [address] [phone] 07/11/2016 15:08:27 07/11/2016 16:49:05 Adult health examination 627743078 Z00.01 Administra tion of influenza vaccine 92959386 Z23 Eating disorder 20883540 F50.9 Candidiasis of mouth 797 49732 B37.0 Attention deficit hyperactivity disorder, combined type 20356703 F90.2 Sexually t ransmitted infectious disease 9502116 A64 Eczema 33473535 L30.9 [id number] Carito Serna MD [address] [phone] 07/15/2016 16:10:50 07/15/2016 17:52:48 Human immunodeficiency virus infection 51029978 B20 Sexually t ransmitted infectious disease 1863438 A64 Eating disorder 95687585 F50.9 Health Concerns Section Related Observation LastModified by Organization Detai ls LastModified Time None Recorded Concern Status LastModified by Organization Details LastModified Time None Recorded Advance Directives Directive None Recorded Payers Insurance Date Sequence Insurance Name Policy Number Policy Ruelas Covered Member ID Ruelas Member ID Guarantor Name 12/06/2022 1 [facility] (MEDICAID HMO) [id number] Kelby Parker [id number] Julianna Ravenel 12/06/2022 1 [facility] PLAN (MEDICAID HMO) [id number] Kelby Parker [id number] Julianna Ravenel 12/06/2022 2 [place] [facility] Kelby Parker [id number] Julianna Ravenel 12/06/2022 1 [place] [facility] Kelby Parker [id number] Julianna Ravenel Notes Date Note Type Note Provider Name [...] ill contacts. NO makeup. Carito Serna MD [address] [place] [address], [phone], [facility] 01/21/2016 13:20:44 07/06/2016 text/html EATING [...] energynormal amount of energy; has job at [employer] since Feb 2016 behavioral historyalcohol: use (occ [...] realizes that his partner cares and wants production planner relationship; Mom busy with work and caring [...] 10 days ago. Carito Serna MD [address] [place] [address], [phone], [facility] 07/06/2016 12:25:27 07/15/2016 text/html RS [...] hands with inc lotion. Carito Serna MD [address] [place] [address], [phone], [facility] 07/15/2016 17:55:49
== END 2024-10-29 13:02 | disposition home or self-care (01) ==
LOC: HO.HHCX 13:01
PROVIDERS: PCP Student in an Organized Health Care Education/Training Program; Visit Provider Student in an Organized Health Care Education/Training Program
DX: S62.91XS Unspecified fracture of right hand, sequela (principal)
CPT/HCPCS: 73130

== ENCOUNTER → 2024-10-29 13:06 | Outpatient (BNV) | payer OTHER, SELFPAY | PROVIDERS: PCP Student in an Organized Health Care Education/Training Program; Visit Provider Radiology Diagnostic Radiology | DX: S62.231A Other displaced fracture of base of first metacarpal bone, right hand, initial encounter for closed fracture (principal) | CPT/HCPCS: 73130 ==

== ENCOUNTER 2025-02-19 14:25 | Outpatient (REF) | payer MEDICAID, SELFPAY ==
--- OUTSIDE RECORDS SUMMARY | 2025-02-19 18:48 | XMS_ITS | Clinical Summary ---
Author Organization [facility] sp[facility] Address [address] [place] [address] Phone Care Team Providers Care Forklift Truck Operator Name Role Phone Carito Serna Primary Care Provider [phone] Kareem, Carito Unavailable Kareem Carito Unavailable Social History Tobacco Use Types Packs/Day Years Used Date Smoking Tobacco: Never Assessed Sex and Gender Information Value Date Recorded Sex Assigned at Not on file Legal Sex Male 10:13 PM EDT Gender Identity Not on file Sexual Orientation Not on file Plan of Treatment Not on file Care Teams Forklift Truck Operator Relationship Specialty Start Date End Date Carito Serna [address] [place] [address] PCP - General 02/26/14 Carito Serna [address] [place] [id number] PCP - Clinical PCP 02/26/14 Carito Serna [address] [place] [phone] PCP - Insurance PCP 02/26/14
--- OUTSIDE RECORDS SUMMARY | 2025-02-19 18:48 | XMS_ITS | Clinical Summary ---
Author Organization [facility] Address [address] [place] [address] Care Team Providers Care Teacher Public Health Name Role Phone Unavailable Primary Care Provider [...] - 19+ 3-dose series) 2017 COVID-19 Vaccine (1 - 2023-2 5 season) 2024 Pneumococcal Vaccine: Pediat marcel (0-5 Years) and At-Risk Patients (6 to 49 Years) Aged Out No longer eligible b ased on patient's age to complete this topic
--- OUTSIDE RECORDS SUMMARY | 2025-02-19 18:48 | XMS_ITS | Clinical Summary ---
Author Organization [facility] Address [address] [place] [address] Care Team Providers Care Seed Sorter Name Role Phone Carito Serna MD Primary Care Provider Source Comments Please note that some or all of the patient's information could have additional privacy protections. State laws allow health care providers to render certain types of treatment to minors without parental consent. Please do not assume that this information can be shared solely by obtaining just the consent of the patient's parent/guardian. Please determine if all or part of the patient's care was rendered without parent/guardian involvement. 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 Adolescent depression 02/01/2014 Drug-induced seizure 02/01/2014 Altered mental status 02/01/2014 Social History Tobacco Use Types Packs/Day Years Used Date Smoking Tobacco: Never Assessed Sex and Gender Information Value Date Recorded Sex Assigned at Not on file Legal Sex Male 2:31 AM EDT Gender Identity Not on file Sexual Orientation Not on file Last Filed Vital Signs Vital Sign Reading Time Taken Comments Blood Pressure 102/53 02/03/2014 4:00 PM EDT Pulse 88 02/03/2014 4:00 PM EDT Temperature 36.9 C (98.4 F) 02/03/2014 4:00 PM EDT Respiratory Rate 20 02/03/2014 4:00 PM EDT Oxygen Saturation 99% 02/03/2014 4:00 PM EDT Inhaled Oxygen Concentration - - Weight 74.4 kg (164 lb 0.4 oz) 02/01/2014 4:28 A M EDT Height - - Body Mass Index - - Plan of Treatment Not on file Insurance [employer] Member Subscriber Plan / Payer (Ef fective 2013-Present) Name:Kelby Parker Relation to Subscriber:Self Name:Kelby Parker Payer ID:[id number] Group ID:Not on file Type:Medicaid Address: [address] [place], [place] [id number] [place] [address] [employer] Care Teams Seed Sorter Relationship Specialty Start Date End Date Carito Serna MD [address] [facility] [address] [place] [phone] PCP - General 02/01/14
[2025-02-20 19:58] LABS: HIV RNA PCR Qn Copies 54 copies/mL (NOT DETECTED); HIV RNA PCR Qn Log Copies 1.73 (NOT DETECTED)
[2025-02-24 17:03] LABS: Absolute CD3 Count 983 cells/uL (840-3060); Absolute CD8 Count 602 cells/uL (180-1170); Percent CD3 Cells 66 % (57-85); Percent CD8 Cells 41 % (12-42)
== END 2025-02-19 14:26 | disposition home or self-care (01) ==
LOC: HO.HHCL 14:25
PROVIDERS: PCP Student in an Organized Health Care Education/Training Program; Visit Provider Internal Medicine
DX: Z21 Asymptomatic human immunodeficiency virus [HIV] infection status (principal)
CPT/HCPCS: 36415; 86359; 86360; 87536